=== PATIENT | female | born 1955 | race Two or more races ===

== ENCOUNTER → 2020-03-30 10:46 | Outpatient (BNVA) | payer OTHER, SELFPAY | PROVIDERS: PCP Internal Medicine; Referring Provider Internal Medicine; Visit Provider Nurse Practitioner | DX: K21.9 Gastro-esophageal reflux disease without esophagitis (principal); K58.9 Irritable bowel syndrome, unspecified; K64.9 Unspecified hemorrhoids; Z79.899 Other long term (current) drug therapy | CPT/HCPCS: 99213 ==

== ENCOUNTER → 2020-07-12 09:56 | Outpatient (BNVA) | payer OTHER, SELFPAY | PROVIDERS: PCP Internal Medicine; Visit Provider Nurse Practitioner ==

== ENCOUNTER → 2020-09-19 14:38 | Outpatient (BNVA) | payer MEDICARE, MEDICAID, SELFPAY | PROVIDERS: PCP Internal Medicine; Visit Provider Nurse Practitioner | DX: K58.0 Irritable bowel syndrome with diarrhea (principal); K21.9 Gastro-esophageal reflux disease without esophagitis; K64.9 Unspecified hemorrhoids | CPT/HCPCS: Q3014 ==

== ENCOUNTER 2020-11-13 09:43 | Outpatient (REF) | payer MEDICARE, MEDICAID, SELFPAY ==
[2020-11-13 11:46] LABS: Albumin Level 3.9 g/dL (3.5-5.0); Calcium 9.2 mg/dL (8.4-10.2)
[2020-11-13 11:53] LABS: Vitamin D 25-OH Total 48.3 ng/mL (>30)
[2020-11-15 09:21] LABS: Calcium (PTHI) 8.7 mg/dL (8.6-10.4); PTHI 51 pg/mL (14-64)
[2020-11-16 10:27] LABS: Alkaline Phosphatase Bone 17.7 mcg/L (5.6-29.0)
[2020-11-21 06:21] LABS: N-Telopeptide 43 (see note); NTXCreaRU 96 mg/dL (20-275)
== END 2020-11-13 09:44 | disposition home or self-care (01) ==
LOC: HO.LAB 09:43
PROVIDERS: PCP Internal Medicine; Visit Provider Internal Medicine Endocrinology, Diabetes & Metabolism
DX: M81.0 Age-related osteoporosis without current pathological fracture (principal); Z86.39 Personal history of other endocrine, nutritional and metabolic disease
CPT/HCPCS: 36415; 82040; 82306; 82310; 82523; 83970; 84075; 99212

== ENCOUNTER 2020-11-20 08:50 | Outpatient (REF) | payer MEDICARE, MEDICAID, SELFPAY ==
--- NOTE | ~2020-11-20 | CT_ITS ---
EXAMINATION: CT HEAD WITHOUT CONTRAST CLINICAL INFORMATION: Dizziness COMPARISON: Previous head CT scans, most recent February TECHNIQUE: Contiguous axial imaging was performed from the skull base to vertex without intravenous administration of contrast. This CT examination was performed using dose optimization techniques as appropriate, variously including the following: *Automated exposure control *Adjustment of mA and/or kV according to patient size (this includes techniques or standardized protocols for targeted exams where dose is matched to indication/reason for exam; i.e. extremities or head) *Use of iterative reconstruction technique DLP: 719 mGy-cm FINDINGS: There is no evidence of acute intracranial hemorrhage or territorial infarction. No abnormal mass effect or midline shift is seen. Weathers to white matter differentiation is well preserved. No extra-axial fluid collections are identified. The ventricles are normal in size. Cavum velum interpositum versus arachnoid cyst superior to the third ventricle is unchanged. There is no abnormal attenuation within the brain parenchyma. There is a benign hyperostosis interna that is unchanged. The osseous structures and soft tissues are otherwise normal. The mastoid air cells and visualized portions of the paranasal sinuses are well aerated. CT/CT head/brain wo con IMPRESSION: No acute findings and no change from previous exam.
--- NOTE | ~2020-11-20 | XR_ITS ---
EXAMINATION: XR THORACOLUMBAR SPINE CLINICAL INFORMATION: Pain COMPARISON: Previous x-ray of the thoracic spine May 2018 TECHNIQUE: 2 views of the thoracic spine FINDINGS: Bone alignment is normal. No fracture or dislocation is seen. There is mild multilevel degenerative spondylosis of the mid and lower thoracic spine. Disc spaces are normal. Paraspinal soft tissues are normal. XR/XR thoracic spine 2V IMPRESSION: Mild degenerative spondylosis.
== END 2020-11-20 08:51 | disposition home or self-care (01) ==
LOC: HO.CT 08:50
PROVIDERS: Visit Provider Psychiatry & Neurology Neurology
DX: R42 Dizziness and giddiness (principal); M54.6 Pain in thoracic spine
CPT/HCPCS: 70450; 72070

== ENCOUNTER 2020-12-19 11:22 | Outpatient (REF) | payer MEDICARE, MEDICAID, SELFPAY ==
--- NOTE | ~2020-12-19 | MM_ITS ---
EXAMINATION: MM SCREENING DIGITAL BREAST TOMOSYNTHESIS, BILATERAL CLINICAL INFORMATION: Screening. Asymptomatic. The lifetime risk of breast cancer based on the Tyrer-Cuzick Model is 6%. COMPARISON: Mammography: 03/03/2019, 02/19/2018, 01/14/2017 TECHNIQUE: Digital breast tomosynthesis is performed in both the craniocaudal and mediolateral oblique views along with computer-aided detection (CAD). Synthesized 2D images are generated from the tomosynthesis. FINDINGS: There are scattered areas of fibroglandular density (ACR BI-RADS breast composition Category b). There are no significant masses, abnormal calcifications, or other abnormalities. Parenchymal pattern is similar to prior studies. Skin contours are smooth. No significant changes. MM/MM tomosynthesis screening BI IMPRESSION: No mammographic evidence of malignancy. ASSESSMENT: BI-RADS 1: Negative RECOMMENDATION: Routine annual mammography screening. This patient's information was entered into a reminder system with a target due date for their next mammogram.
== END 2020-12-19 11:23 | disposition home or self-care (01) ==
LOC: HO.MAMMO 11:22
PROVIDERS: Visit Provider Internal Medicine
DX: Z12.31 Encounter for screening mammogram for malignant neoplasm of breast (principal)
CPT/HCPCS: 77063; 77067

== ENCOUNTER → 2020-12-20 10:34 | Outpatient (BNVA) | payer MEDICARE, MEDICAID, SELFPAY | PROVIDERS: Visit Provider Nurse Practitioner | DX: K58.0 Irritable bowel syndrome with diarrhea (principal); K21.9 Gastro-esophageal reflux disease without esophagitis; K64.9 Unspecified hemorrhoids; R14.0 Abdominal distension (gaseous); Z80.0 Family history of malignant neoplasm of digestive organs | CPT/HCPCS: Q3014 ==

== ENCOUNTER → 2021-05-15 08:45 | Outpatient (BNVA) | payer MEDICARE, MEDICAID, SELFPAY | PROVIDERS: PCP Internal Medicine; Visit Provider Internal Medicine | CPT/HCPCS: Q3014 ==

== ENCOUNTER 2021-05-30 09:53 | Outpatient (REF) | payer MEDICARE, MEDICAID, SELFPAY ==
[2021-05-30 11:12] LABS: Alanine Aminotransferase 16 U/L (0-31); Albumin Level 3.9 g/dL (3.5-5.0); Alkaline Phosphatase 125 U/L (39-117); Anion Gap 9 (12-20); Aspartate Amino Transferase 18 U/L (5-31); Bilirubin Total 0.3 mg/dL (0.0-1.0); Blood Urea Nitrogen 11 mg/dL (9-16); Carbon Dioxide 28 mmol/L (22-29); Chloride 109 mmol/L (96-108); Estimated Glomerular Filt Rate > 60; Glucose Random 88 mg/dL (60-115); Potassium 4.2 mmol/L (3.3-5.1); Sodium 142 mmol/L (135-145); Total Protein 6.8 g/dL (6.5-8.0)
[2021-05-30 11:25] LABS: Thyroid Stimulating Hormone 0.56 uIU/mL (0.32-4.0); Vitamin D 25-OH Total 44.3 ng/mL (>30)
[2021-05-31 16:31] LABS: Calcium (PTHI) 8.9 mg/dL (8.6-10.4); PTHI 43 pg/mL (14-64)
[2021-06-02 19:52] LABS: Prot Elec - Albumin 3.5 g/dL (3.8-4.8); Prot Elec - Alpha1 0.3 g/dL (0.2-0.3); Prot Elec - Alpha2 0.7 g/dL (0.5-0.9); Prot Elec - Beta 1 0.5 g/dL (0.4-0.6); Prot Elec - Beta 2 0.5 g/dL (0.2-0.5); Prot Elec - Gamma 1.2 g/dL (0.8-1.7); Prot Elec - Total Protein 6.6 g/dL (6.1-8.1)
[2021-06-05 22:06] LABS: Alkaline Phosphatase Bone 18.1 mcg/L (5.6-29.0)
== END 2021-05-30 09:54 | disposition home or self-care (01) ==
LOC: HO.LAB 09:53
PROVIDERS: PCP Internal Medicine; Visit Provider Internal Medicine
DX: M81.0 Age-related osteoporosis without current pathological fracture (principal); E55.9 Vitamin D deficiency, unspecified
CPT/HCPCS: 36415; 80053; 82306; 83970; 84075; 84100; 84165; 84439; 84443

== ENCOUNTER 2021-06-27 11:16 | Outpatient (REF) | payer MEDICARE, MEDICAID, SELFPAY ==
[2021-07-03 06:32] LABS: N-Telopeptide 39 (see note); NTXCreaRU 91 mg/dL (20-275)
== END 2021-06-27 11:17 | disposition home or self-care (01) ==
LOC: HO.LNP 11:16
PROVIDERS: Visit Provider Internal Medicine
DX: M81.0 Age-related osteoporosis without current pathological fracture (principal)
CPT/HCPCS: 82523

== ENCOUNTER 2021-08-01 08:54 | Outpatient (REF) | payer MEDICARE, MEDICAID, SELFPAY ==
--- NOTE | ~2021-08-01 | MM_ITS ---
EXAMINATION: BONE DENSITOMETRY CLINICAL INDICATION: Hyperparathyroidism. COMPARISON: Previous BD dated 03/03/2019 and baseline BD dated 03/31/2007. TECHNIQUE: Using a Scoopinion DXA System (software version: 13.1) manufactured by [employer], dual-energy x-ray absorptiometry was performed of the lumbar spine, left hip, and left forearm radius 33%. The images are of good technical quality. Summary results are attached. FINDINGS: AP SPINE L1-L4: Current: BMD 1.062 g/cm2, Z-score 0.5, T-score -1.0, normal, 6.2% decrease from previous, 10.2% decrease from baseline (<5% change is not significant). Prior: BMD 1.132 g/cm2. Baseline: BMD 1.183 g/cm2. LEFT FEMUR, NECK: Current: BMD 0.815 g/cm2, Z-score -0.2, T-score -1.6, osteopenia. Prior: BMD 0.817 g/cm2. Baseline: BMD 0.895 g/cm2. LEFT FEMUR, TOTAL: Current: BMD 0.881 g/cm2, Z-score 0.2, T-score -1.0, normal, 3.9% decrease from previous, 10.3% decrease from baseline (<5% change is not significant). Prior: BMD 0.917 g/cm2. Baseline: BMD 0.982 g/cm2. LEFT FOREARM RADIUS 33%: BMD 0.669 g/cm2, Z-score -0.9, T-score -2.4, osteopenia, 0.5% increase from previous, 7.9% decrease from baseline (<5% change is not significant). Prior: BMD 0.666 g/cm2. Baseline 11/23/2014: BMD 0.726 g/cm2. IDENTIFIED RISK FACTORS: Menopause, hyperparathyroidism, osteoporosis, rheumatoid arthritis. HISTORY OF FRACTURE: None listed. MEDICATIONS: Calcium, vitamin D. MM/XR DEXA appendicular skeleton IMPRESSION: 1. DIAGNOSIS: Osteopenia based on the lowest T-score value of -2.4 in the forearm radius 33% applying World Health Organization criteria. 2. 10-YEAR FRACTURE RISK PREDICTION, FRAX: Major osteoporotic fracture (clinical spine, forearm, hip or shoulder) 6.7%. Hip fracture 0.9%. 3. Treatment Recommendations: NOF guidelines recommend consideration for treatment in postmenopausal women and men age 50 and older presenting with the following: -A hip or vertebral (clinical or morphometric) fracture. -T-score less than or equal to -2.5 at the femoral neck or spine after appropriate evaluation to exclude secondary causes. -Low bone mass at the hip or spine and a 10-year fracture probability by FRAX of greater than or equal to 3% for hip fracture or greater than or equal to 20% for major osteoporotic fracture based on the [place] adapted WHO algorithm. 4. Other Recommendations: All treatment decisions require clinical judgment and consideration of individual patient factors, including patient preferences, comorbidities, previous drug use, risk factors not captured in the FRAX model (e.g. frailty, falls, vitamin D deficiency, increased bone turnover, interval significant decline in bone density) and possible under or overestimation of fracture risk by FRAX. Additional medical evaluation for secondary cause of low bone mineral density may be appropriate. FUTURE SCAN RECOMMENDATION: People with diagnosed cases of osteoporosis or at high risk for fracture should have regular bone mineral density tests. For patients eligible for Medicare, routine testing is allowed once every 2 years. The testing frequency can be increased to one year for patients who have rapidly progressing disease, those who are receiving or discontinuing medical therapy to restore bone mass, or have additional risk factors.
== END 2021-08-01 08:55 | disposition home or self-care (01) ==
LOC: HO.MAMMO 08:54
PROVIDERS: PCP Internal Medicine; Visit Provider Internal Medicine
DX: Z13.820 Encounter for screening for osteoporosis (principal); E21.3 Hyperparathyroidism, unspecified; Z78.0 Asymptomatic menopausal state; M85.80 Other specified disorders of bone density and structure, unspecified site; Z79.899 Other long term (current) drug therapy
CPT/HCPCS: 77081

== ENCOUNTER 2021-08-08 11:26 | Outpatient (REF) | payer MEDICARE, MEDICAID, SELFPAY ==
--- NOTE | ~2021-08-08 | XR_ITS ---
EXAMINATION: XR SHOULDER, RIGHT CLINICAL INFORMATION: Right shoulder pain. COMPARISON: None TECHNIQUE: AP external rotation, Grashey, scapular Y, and axillary views of the right shoulder. FINDINGS: Minimal calcification is seen at the rotator cuff insertion. The joint spaces are unremarkable. There is no acute fracture. The soft tissues are unremarkable. XR/XR shoulder RT min 2V IMPRESSION: Minimal degenerative calcification at the rotator cuff insertion without other significant abnormality.
== END 2021-08-08 11:27 | disposition home or self-care (01) ==
LOC: HO.XRAY 11:26
PROVIDERS: PCP Internal Medicine; Visit Provider Internal Medicine
DX: M25.511 Pain in right shoulder (principal)
CPT/HCPCS: 73030

== ENCOUNTER → 2021-08-21 08:40 | Outpatient (BNVA) | payer MEDICARE, MEDICAID, SELFPAY | PROVIDERS: PCP Internal Medicine; Visit Provider Internal Medicine | DX: M81.0 Age-related osteoporosis without current pathological fracture (principal); E55.9 Vitamin D deficiency, unspecified; Z86.39 Personal history of other endocrine, nutritional and metabolic disease | CPT/HCPCS: Q3014 ==

== ENCOUNTER → 2021-08-27 10:54 | Outpatient (BNVA) | payer MEDICARE, MEDICAID, SELFPAY | PROVIDERS: PCP Internal Medicine; Referring Provider Internal Medicine; Visit Provider Nurse Practitioner | DX: K58.0 Irritable bowel syndrome with diarrhea (principal); K21.9 Gastro-esophageal reflux disease without esophagitis; R14.0 Abdominal distension (gaseous); Z79.899 Other long term (current) drug therapy | CPT/HCPCS: 99212 ==

== ENCOUNTER 2021-10-03 09:00 | Outpatient (RCR) | payer MEDICARE, MEDICAID, SELFPAY ==
--- NOTE | 2021-09-09 10:45 | MHC.PT.EP ---
[facility] [place] Office [place] [facility] [place] [facility] [address] Ramon Rosales [address] [phone] F: [phone] F: [phone] F: [phone] F: [phone] Physical Therapy Plan of Care Date of Evaluation: Date of Surgery: Diagnosis: right shoulder pain Assessment: The patient arrived reporting shoulder pain and functional loss of motion for daily ADL's. The patient has reduced ROM, strength, and poor tolerance to functional reaching. She has poor sitting posture, and describes difficulty sleeping. She will benefit from ROM, strength, ADL's, posture education for sitting and sleeping. I have given her preliminary education for posture, spine mechanics, sleeping mechanics. I issued a HEP to promote improved shoulder mobility. Frequency and Duration: The patient will be seen 2x/week x 4 weeks. Short Term Goals: 1.Pt to able to demonstrate proper sitting posture with the use of a lumbar roll to decrease aggravating factors. 2.Pt to be able to demonstrate proper posture for common leisure activities such as crocheting and phone/tablet use. 3.For the patient to demonstrate proper upright sitting posture with use of the lumbar roll to improve compliance and carryover. Nursing Home Goals: 1. Pt to be able to return to normal PLOF without limiting pain. 2. Pt to be able to return to overhead reaching without pain or limitation. 3. Pt to be able to manage her pain with selected exercise and stretching regime. Treatment Plan: Modalities to reduce pain, spasms and effusion. Manual therapy to restore motion and function. Therapeutic exercise to improve strength and flexibility. Neuromuscular re-education for posture and balance. Therapeutic activities to return to functional activities of daily living. Electronically signed by: Shanna Dacosta PT DPT Please sign and return to therapist. Thank you for your referral.
== END 2021-10-29 07:57 | disposition home or self-care (01) ==
LOC: HO.PT 09:00
PROVIDERS: PCP Internal Medicine; Visit Provider Internal Medicine
DX: M25.511 Pain in right shoulder (principal)
CPT/HCPCS: 97110; 97112; 97162; 97530

== ENCOUNTER → 2022-03-20 09:33 | Outpatient (BNVA) | payer MEDICARE, MEDICAID, SELFPAY | PROVIDERS: PCP Internal Medicine; Visit Provider Nurse Practitioner | DX: K21.9 Gastro-esophageal reflux disease without esophagitis (principal); K58.9 Irritable bowel syndrome, unspecified; K58.0 Irritable bowel syndrome with diarrhea; R14.0 Abdominal distension (gaseous); R10.9 Unspecified abdominal pain | CPT/HCPCS: 99212 ==

== ENCOUNTER 2022-04-11 13:45 | Outpatient (REF) | payer MEDICARE, MEDICAID, SELFPAY ==
--- NOTE | ~2022-04-11 | US_ITS ---
EXAMINATION: US ABDOMEN COMPLETE CLINICAL INFORMATION: Unspecified abdominal pain. COMPARISON: CT of the pelvis 03/04/2014. TECHNIQUE: Real-time imaging of the abdominal viscera. FINDINGS: PANCREAS: Normal. ABDOMINAL AORTA: The proximal, mid, and distal segments are normal in caliber. INFERIOR VENA CAVA: Visualized portions are normal. LIVER: The liver is normal in size. The liver contour is normal. Parenchymal echogenicity is normal. Circumscribed 2.1 cm echogenic lesion in the right hepatic lobe, avascular in appearance. There is no intrahepatic biliary duct dilatation seen. GALLBLADDER: Surgically absent. COMMON BILE DUCT: Normal in caliber measuring 0.2 cm in diameter. RIGHT KIDNEY: No hydronephrosis. No renal calculi or focal parenchymal lesions. The kidney measures 9.7 cm in maximum dimension. LEFT KIDNEY: Normal. No hydronephrosis. No renal calculi or focal parenchymal lesions. The kidney measures 10.3 cm in maximum dimension. SPLEEN: Normal. The spleen measures 9.5 cm in maximum dimension. FREE FLUID: None. US/US abdomen complete IMPRESSION: A circumscribed, echogenic, avascular liver lesion measuring 2.1 cm. In the absence of known malignancy or risk factors for hepatic malignancy this likely reflect a hemangioma. If known malignancy or risk factors for hepatic malignancy and MR abdomen could be obtained for definitive characterization.
== END 2022-04-11 13:46 | disposition home or self-care (01) ==
LOC: HO.US 13:45
PROVIDERS: Visit Provider Nurse Practitioner
DX: R10.9 Unspecified abdominal pain (principal)
CPT/HCPCS: 76700

== ENCOUNTER → 2022-04-16 13:01 | Outpatient (BNVA) | payer MEDICARE, MEDICAID, SELFPAY | PROVIDERS: PCP Internal Medicine; Visit Provider Nurse Practitioner | DX: K58.0 Irritable bowel syndrome with diarrhea (principal); R14.0 Abdominal distension (gaseous); K21.9 Gastro-esophageal reflux disease without esophagitis; M79.89 Other specified soft tissue disorders | CPT/HCPCS: 99212 ==

== ENCOUNTER → 2022-04-18 10:47 | Outpatient (BNVA) | payer MEDICARE, MEDICAID, SELFPAY | PROVIDERS: PCP Internal Medicine; Visit Provider Physician Assistant | DX: M75.81 Other shoulder lesions, right shoulder (principal) | CPT/HCPCS: 99202 ==

== ENCOUNTER 2022-04-29 10:15 | Outpatient (REF) | payer MEDICARE, MEDICAID, SELFPAY ==
[2022-04-29 11:05] LABS: Appearance Urine Clear; Color Urine Yellow; Glucose Urine UA Negative (Negative); Leukocyte Esterase Urine Small (1+) (Negative); Nitrite Urine Negative (Negative); PH 5.5 (5.0-9.0); UMIC TRIGGER UACC YES; Urine Blood Negative (Negative); Urine Ketones Negative (Negative); Urine Protein Negative (Neg-Trace)
[2022-04-29 11:29] LABS: Bacteria Urine None Seen (None Seen); Hyaline Casts Urine 0-2 /LPF (0-2); RBC Urine 0-2 /HPF (0-2); Squamous Epithelial Cell Urine 0-2 /HPF (0-2); UACC Culture Trigger YES; WBC Urine 0-5 /HPF (0-5)
[2022-04-29 11:46] LABS: Erythrocyte Sedimentation Rate 14 MM/HR (0-20)
[2022-04-29 11:48] LABS: Amylase 68 U/L (28-100); Lipase 61 U/L (8-78); Rheumatoid Factor < 15.0 IU/mL (<15.0); Uric Acid 3.4 mg/dL (2.4-5.7)
[2022-04-30 13:07] LABS: Anti Nuclear Antibody Screen NEGATIVE (NEGATIVE)
== END 2022-04-29 10:16 | disposition home or self-care (01) ==
LOC: HO.LAB 10:15
PROVIDERS: PCP Internal Medicine; Visit Provider Nurse Practitioner
DX: R10.9 Unspecified abdominal pain (principal); M79.89 Other specified soft tissue disorders
CPT/HCPCS: 36415; 81001; 81003; 82150; 83690; 84550; 85652; 86038; 86039; 86431; 87086

== ENCOUNTER → 2022-05-07 09:00 | Outpatient (BNVA) | payer MEDICARE, MEDICAID, SELFPAY | PROVIDERS: PCP Internal Medicine; Visit Provider Nurse Practitioner | DX: K76.9 Liver disease, unspecified (principal); K21.9 Gastro-esophageal reflux disease without esophagitis; K58.0 Irritable bowel syndrome with diarrhea; R14.0 Abdominal distension (gaseous); M79.89 Other specified soft tissue disorders | CPT/HCPCS: 99212 ==

== ENCOUNTER 2022-05-20 09:04 | Outpatient (REF) | payer MEDICARE, MEDICAID, SELFPAY ==
[2022-05-20 10:24] LABS: Blood Urea Nitrogen 12 mg/dL (9-16); Estimated Glomerular Filt Rate > 60
[2022-05-20 11:40] LABS: Appearance Urine Clear; Color Urine Yellow; Glucose Urine UA Negative (Negative); Leukocyte Esterase Urine Moderate (2+) (Negative); Nitrite Urine Negative (Negative); UMIC TRIGGER UACC YES; Urine Blood Negative (Negative); Urine Ketones Negative (Negative); Urine Protein Negative (Neg-Trace)
[2022-05-20 11:44] LABS: Bacteria Urine None Seen (None Seen); Hyaline Casts Urine 0-2 /LPF (0-2); RBC Urine 0-2 /HPF (0-2); UACC Culture Trigger YES; WBC Urine 21-50 /HPF (0-5)
== END 2022-05-20 09:05 | disposition home or self-care (01) ==
LOC: HO.LAB 09:04
PROVIDERS: PCP Internal Medicine; Visit Provider Nurse Practitioner
DX: R10.9 Unspecified abdominal pain (principal); K76.9 Liver disease, unspecified
CPT/HCPCS: 36415; 81001; 81003; 82565; 84520; 87086

== ENCOUNTER 2022-05-29 08:13 | Outpatient (REF) | payer MEDICARE, MEDICAID, SELFPAY ==
--- NOTE | ~2022-05-29 | CT_ITS ---
EXAMINATION: CT ABDOMEN AND PELVIS WITHOUT AND WITH CONTRAST CLINICAL INFORMATION: Unspecified cirrhosis of the liver. COMPARISON: CT abdomen and pelvis 03/13/2014. TECHNIQUE: Multidetector volumetric imaging was performed of the abdomen and pelvis before and after the IV administration of 85 mL of Omnipaque 350 intravenous contrast. Sagittal and coronal reformatted images were obtained on the technologist's workstation. This CT examination was performed using dose optimization techniques as appropriate, variously including the following: *Automated exposure control *Adjustment of mA and/or kV according to patient size (this includes techniques or standardized protocols for targeted exams where dose is matched to indication/reason for exam; i.e. extremities or head) *Use of iterative reconstruction technique DLP: 651 mGy-cm FINDINGS: LUNG BASES: The heart size is normal. The lung bases are clear. LIVER, GALLBLADDER, AND BILIARY TREE: The liver is normal in size, shape, and attenuation. No focal hepatic lesion or biliary ductal dilatation is present. On postcontrast exam, there is a 1.9 x 1.5 cm lesion with central nodular enhancement in the right hepatic lobe segment 7 (axial image 21/5). It is unchanged since the 2013 exam and likely represents a small hemangioma. There are surgical chandler in the right upper quadrant from previous cholecystectomy. PANCREAS: Unremarkable. SPLEEN: Unremarkable. ADRENAL GLANDS: Unremarkable. KIDNEYS AND URETERS: The kidneys are normal in size, shape, and attenuation. No hydronephrosis, hydroureter, or calculi are seen. No perinephric stranding. BLADDER: Unremarkable. GASTROINTESTINAL TRACT: There is scattered stool and gas seen throughout the colon without significant distention. The small bowel loops are normal caliber. The appendix has been surgically removed. ABDOMINAL WALL: No significant hernia is appreciated. LYMPH NODES: Normal. VASCULAR: The abdominal aorta is of normal caliber. The abdominal aortic branches are widely patent. PELVIC VISCERA: Unremarkable. OSSEOUS STRUCTURES: No aggressive lytic or sclerotic process is seen. CT/CT abdomen pelvis wo/w IV con IMPRESSION: 1. No acute intra-abdominal process seen. 2. Stable right hepatic lobe hemangioma. 3. Mild constipation. Fleischner guidelines were followed.
[2022-05-29] MEDS: iohexoL 350 MG/ML 100 ML INFUS..BTL 85 ML IV (09:21)
== END 2022-05-29 08:14 | disposition home or self-care (01) ==
LOC: HO.CT 08:13
PROVIDERS: PCP Internal Medicine; Visit Provider Nurse Practitioner
DX: K76.9 Liver disease, unspecified (principal); K74.60 Unspecified cirrhosis of liver
CPT/HCPCS: 74178; Q9967

== ENCOUNTER 2022-07-07 12:42 | Outpatient (REF) | payer MEDICARE, MEDICAID, SELFPAY ==
--- NOTE | ~2022-07-07 | MM_ITS ---
EXAMINATION: MM SCREENING DIGITAL BREAST TOMOSYNTHESIS, BILATERAL CLINICAL INFORMATION: Screening. Asymptomatic. The lifetime risk of breast cancer based on the Tyrer-Cuzick Model is 5.6%. COMPARISON: Mammography: December 19, 2020 and studies dating back to November 15, 2015 TECHNIQUE: Digital breast tomosynthesis is performed in both the craniocaudal and mediolateral oblique views along with computer-aided detection (CAD). Synthesized 2D images are generated from the tomosynthesis. FINDINGS: There are scattered areas of fibroglandular density (ACR BI-RADS breast composition Category b). There are no significant masses, abnormal calcifications, or other abnormalities. MM/MM tomosynthesis screening BI IMPRESSION: No significant changes from prior exam. ASSESSMENT: BI-RADS 1: Negative RECOMMENDATION: Routine annual mammography screening. This patient's information was entered into a reminder system with a target due date for their next mammogram.
== END 2022-07-07 12:43 | disposition home or self-care (01) ==
LOC: HO.MAMMO 12:42
PROVIDERS: PCP Internal Medicine; Visit Provider Internal Medicine
DX: Z12.31 Encounter for screening mammogram for malignant neoplasm of breast (principal)
CPT/HCPCS: 77063; 77067

== ENCOUNTER → 2022-07-24 09:31 | Outpatient (BNVA) | payer MEDICARE, MEDICAID, SELFPAY | PROVIDERS: PCP Internal Medicine; Referring Provider Internal Medicine; Visit Provider Nurse Practitioner | DX: R14.0 Abdominal distension (gaseous) (principal); K21.9 Gastro-esophageal reflux disease without esophagitis; K58.0 Irritable bowel syndrome with diarrhea; R10.12 Left upper quadrant pain; K76.9 Liver disease, unspecified; Z90.49 Acquired absence of other specified parts of digestive tract | CPT/HCPCS: 99212 ==

== ENCOUNTER 2022-09-08 09:43 | Outpatient (REF) | payer MEDICARE, MEDICAID, SELFPAY ==
[2022-09-08 11:51] LABS: Alanine Aminotransferase 14 U/L (0-31); Albumin Level 3.7 g/dL (3.5-5.0); Alkaline Phosphatase 133 U/L (39-117); Anion Gap 13 (12-20); Aspartate Amino Transferase 20 U/L (5-31); Bilirubin Total 0.5 mg/dL (0.0-1.0); Blood Urea Nitrogen 9 mg/dL (9-16); Calcium 8.7 mg/dL (8.4-10.2); Carbon Dioxide 27 mmol/L (22-29); Chloride 108 mmol/L (96-108); Cholesterol 158 mg/dL; Estimated Glomerular Filt Rate > 60; Glucose Fasting 79 mg/dL (60-99); HDL Cholesterol 42 mg/dL; LDL Cholesterol Calculated 85 mg/dl; Potassium 4.3 mmol/L (3.3-5.1); Sodium 144 mmol/L (135-145); Total Protein 6.6 g/dL (6.5-8.0); Triglycerides 159 mg/dL
== END 2022-09-08 09:44 | disposition home or self-care (01) ==
LOC: HO.LAB 09:43
PROVIDERS: PCP Internal Medicine; Visit Provider Internal Medicine
DX: Z00.00 Encounter for general adult medical examination without abnormal findings (principal); E78.5 Hyperlipidemia, unspecified
CPT/HCPCS: 36415; 80053; 80061

== ENCOUNTER 2022-10-24 10:05 | Emergency (ER) | payer MEDICARE, MEDICAID, SELFPAY ==
--- NOTE | 2022-10-24 10:14 | ED.FEMALEGU ---
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 She also endorses some lower back pain and external vaginal itching. No vaginal discharge. No fever, chills, N/V/D or abdominal pain. MD elicited complaint: dysuria Onset (ago): day(s) (3) Location of symptoms: external genitalia and urethra Severity: moderate Female Urogenital Radiation: Non-Radiating Quality of pain: burning Consistency: improved Vaginal discharge: none Vaginal bleeding: none Urinary symptoms: Dysuria, Urgency, Frequency and Hematuria Exacerbating factors: urination Relieving factors: none Associated symptoms: denies other symptoms Treatment prior to arrival: none Sexual activity: No Patient : No Related Data Previous Rx's Medication Instructions Recorded gabapentin 400 mg capsule 400 mg PO TID 30 days #90 caps 06/12/20 hydrocortisone 2.5 % topical cream 1 ea [place] BID hemorrhoids #30 grams 08/27/21 with perineal applicator (Proctosol HC) sennosides 8.6 mg capsule (senna) 17.2 mg PO BEDTIME PRN 05/07/22 constipation 30 days #60 caps dexlansoprazole 60 mg 60 mg PO DAILY #90 caps 07/24/22 capsule,biphase delayed release (Dexilant) dicyclomine 20 mg tablet 20 mg PO QID #120 tabs 07/24/22 [id number]-[id number] 1 cap PO QID #120 caps 07/24/22 24,000-76,000-120,000 unit capsule,delayed rel (Creon) simethicone 180 mg capsule 180 mg PO QID #120 caps 07/24/22 cefuroxime axetil 250 mg tablet 250 mg PO BID 7 days #14 tabs 10/24/22 Allergies Allergy/AdvReac Type Severity Reaction Status Date / Time alendronate sodium [Fosamax] Allergy Intermediate low back Verified 08/12/22 12:32 pain ciprofloxacin [From CIPRO] Allergy Intermediate SHORTNESS Verified 08/12/22 12:32 OF BREATH cyclobenzaprine Allergy Intermediate DIZZY Verified 08/12/22 12:32 FOGGY , dizziness metronidazole [From FLAGYL] Allergy Intermediate DISTENDED Verified 08/12/22 12:32 ABDOMEN, DIFFICULTY BREATHING tramadol [TRAMADOL] Allergy Intermediate VOMITING Verified 08/12/22 12:32 Hydrocodone-Acetaminophen Allergy Intermediate dizziness, Uncoded 08/12/22 12:32 insomnia Review of Systems Review of Systems: Yes all other systems are reviewed and are negative [facility] Past Medical History Medical History History of primary hyperparathyroidism Hyperparathyroidism Medicare annual wellness visit, initial Migraines Osteoporosis Polyarthralgia Right shoulder pain Thoracic spine pain Vertigo Vitamin D deficiency Surgical History Hx of cholecystectomy Hx of colonoscopy (~2009) Hx of endoscopy (~2009) Hx of parathyroidectomy Family History Family History Father Colon cancer HTN (hypertension) Mother No problems noted. 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 Oriented X3. No acute distress. Head: normocephalic, atraumatic. Eyes: Pupils equal, round and reactive to light. ENT: Pharynx normal. No tonsillar swelling or exudate. Neck: Normal inspection. Neck supple. CVS: Normal heart rate and rhythm. Pulses normal. Respiratory: No respiratory distress. Breath sounds normal. Abdomen: Soft and nontender. +BS x4. pelvic deferred Skin: Skin warm and dry. Normal skin color. Normal skin turgor. No rashes. Extremities: No lower extremity edema. No joint swelling. Neuro/psych: Oriented X 3. No motor deficit. No sensory deficit. CN II-XII intact. Normal speech and cognition. Medical Decision Making Medical Decision Making [facility] Narrative: 67 yo female presents to the ER for dysuria, frequency and urgency associated with lower back pain and hematuria for the last 3 days. No CVA tenderness on exam. Doubt kidney stones. No fever, chills, N/V/D and no abdominal tenderness on exam. Her UA is grossly positive for infection. 1st dose of ceftin given here, will d/c home on ceftin. diagnosis and treatment d/w patient along return precautions. stable for d/c home. Differential Diagnosis Differential Diagnoses: The differential diagnosis associated with the presentation includes UTI, vaginitis, pyelonephritis, kidney stone Lab Data [facility] Lab Attestation statement: I reviewed the patient's lab results. Labs: Lab Results 10/24/22 Range/Units 10:28 Urine Color BROWN Urine Appearance Turbid Urine pH 6.5 (5.0-9.0) Ur Specific [place] 1.025 (1.005-1.025) Urine Protein 100 (2+) H (Neg-Trace) mg/dL Urine Glucose (UA) Negative (Negative) mg/dL Urine Ketones Trace (Negative) mg/dL Urine Blood Large (3+) H (Negative) Urine Nitrite Positive H (Negative) Ur Leukocyte Esterase Large (3+) H (Negative) Urine RBC >20 H (0-2) /HPF Urine WBC >50 H (0-5) /HPF Ur Squamous Epith Cells 0-2 (0-2) /HPF Urine Bacteria None Seen (None Seen) Hyaline Casts 0-2 (0-2) /LPF External Record Review External record reviewed: Prior outpatient labs Prescription Management I considered prescription management with: Antibiotic Critical Care Time Critical Care Time Critical Care Time: No Discharge Plan Discharge Clinical Impression: Urinary tract infection Patient Disposition: Home, Self-Care Instructions: Urinary Tract Infection in Women (DC) Additional Instructions: Your urine test showed you have a urinary tract infection which is causing all of your symptoms Take the prescribed antibiotic as directed - next dose is due tonight before bed. you were given 1st dose in the ER today Make sure you are drinking plenty of fluids. Follow up with your doctor If you develop new or worsening symptoms call 911 or come back to the ER for further evaluation. Fishman an?lisis de orina mostr? que tiene gui infecci?n del tracto urinario que est? causando todos blayne s?ntomas. [place] el antibi?doc recetado seg?n las indicaciones; la pr?xima dosis debe tomarse esta noche antes de acostarse. le dieron la primera dosis en la tim de emergencias hoy Aseg?rese de beber muchos l?quidos. Seguimiento con fishman m?dico Si desarrolla s?ntomas nuevos o que empeoran, llame al 911 o regrese a la tim de emergencias para gui evaluaci?n adicional. Prescriptions: New cefuroxime axetil 250 mg tablet 250 mg PO BID 7 Days Qty: 14 0RF No Action gabapentin 400 mg capsule 400 mg PO TID 30 Days Qty: 90 3RF hydrocortisone [Proctosol HC] 2.5 % cream with perineal applicator 1 ea WA BID Qty: 30 6RF senna 8.6 mg capsule 17.2 mg PO BEDTIME PRN (Reason: constipation) 30 Days Qty: 60 6RF dexlansoprazole [Dexilant] 60 mg capsule,biphase delayed releas 60 mg PO DAILY Qty: 90 1RF dicyclomine 20 mg tablet 20 mg PO QID Qty: 120 6RF simethicone 180 mg capsule 180 mg PO QID Qty: 120 6RF Creon 24,000-76,000 -120,000 unit capsule,delayed release(DR/EC) 1 cap PO QID Qty: 120 6RF Referrals: Cee White MD [Primary Care Provider] - (uti) Print Language: Greenlandic
[2022-10-24 10:16] VITALS: BP 133/69; PULSE 83; RESP 16; TEMP 36.8; O2SAT 99; BMI 23.9
--- NOTE | 2022-10-24 10:30 | PC.NURSE ---
Pt on stretcher, airway open and patent, no obvious signs of distress, no difficulty/labored breathing, equal chest rise and fall. Pt a&ox4, skin color normal for ethnicity, warm, and dry. Pt complaining of frequent urination with some blood when she urinates as well as some burning. No edema noted.
[2022-10-24 10:39] LABS: Appearance Urine Turbid; Color Urine BROWN; Glucose Urine UA Negative (Negative); Leukocyte Esterase Urine Large (3+) (Negative); Nitrite Urine Positive (Negative); PH 6.5 (5.0-9.0); Specific Gravity - Urine 1.025 (1.005-1.025); UMIC TRIGGER UACC YES; Urine Blood Large (3+) (Negative); Urine Ketones Trace mg/dL (Negative); Urine Protein 100 (2+) mg/dL (Neg-Trace)
[2022-10-24 10:43] LABS: Bacteria Urine None Seen (None Seen); Hyaline Casts Urine 0-2 /LPF (0-2); RBC Urine >20 /HPF (0-2); Squamous Epithelial Cell Urine 0-2 /HPF (0-2); UACC Culture Trigger YES; WBC Urine >50 /HPF (0-5)
== END 2022-10-24 11:09 | disposition home or self-care (01) ==
PROVIDERS: Physician Assistant; Emergency Provider Emergency Medicine; PCP Internal Medicine
DX: N39.0 Urinary tract infection, site not specified (principal); Z79.899 Other long term (current) drug therapy
CPT/HCPCS: 81001; 87086; 99283; 99284

== ENCOUNTER 2023-01-22 10:31 | Outpatient (AMB) | payer MEDICARE, MEDICAID, SELFPAY ==
[2023-01-22 10:41] VITALS: BP 140/66; PULSE 68; BMI 22.9
--- NOTE | 2023-01-22 10:41 | A.OFFVIS_ITS ---
Intake Vital Signs 01/22/23 10:41 Height 5 ft 3 in Weight 129 lb 3.054 oz BMI 22.9 BP 140/66 H Blood Pressure Location Rt brachial Position Sitting Pulse 68 Intake Visit Reasons: 6 month follow up Intake Note: Gaviota presents in the office as a 2 month follow up for abdominal bloating. CC: Patient reports she was not doing well in the month of November as she was having lower back pain with radiation to her lower abdomen and a burning sensation. She reports occasional nausea and abdominal pain, and GERD. Denies other GI symptoms. 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 Accompanied by: Self / Same As Patient Allergies alendronate sodium [Fosamax] Allergy (Intermediate, Verified 02/09/23 10:08) low back pain ciprofloxacin [From CIPRO] Allergy (Intermediate, Verified 02/09/23 10:08) SHORTNESS OF BREATH cyclobenzaprine Allergy (Intermediate, Verified 02/09/23 10:08) DIZZY FOGGY , dizziness metronidazole [From FLAGYL] Allergy (Intermediate, Verified 02/09/23 10:08) DISTENDED ABDOMEN, DIFFICULTY BREATHING tramadol [TRAMADOL] Allergy (Intermediate, Verified 02/09/23 10:08) VOMITING Hydrocodone-Acetaminophen Allergy (Intermediate, Uncoded 02/09/23 10:08) dizziness, insomnia HPI 6 month follow up HPI Details Assessment & Plan (1) Liver lesion: ?Comment: On ultrasound, CT shows this to be a benign hemangioma aeb ?Code(s): K76.9 - Liver disease, unspecified ?Plan: [place] #Chiara Live We review the CT results and I am pleased that the lesion is stable and is most likely a benign hemangioma. She still swings between CIC and diarrhea, has not been getting her bentyl and we discuss calling the pharmacy and putting it on auto refill since she has refills. She continues on her Dexilant, but c/o pain in the am when she drinks her coffee, but then I take the pill and it calms down, I suggest she take the Dexilant before her coffee. ROV 6 weeks. (2) GERD (gastroesophageal reflux disease): ?Code(s): K21.9 - Gastro-esophageal reflux disease without esophagitis ?Qualifiers: ?Esophagitis presence:?esophagitis presence not specified? Qualified Code(s):?K21.9 - Gastro-esophageal reflux disease without esophagitis (3) Irritable bowel syndrome with diarrhea: ?Code(s): K58.0 - Irritable bowel syndrome with diarrhea (4) Abdominal bloating: ?Code(s): R14.0 - Abdominal distension (gaseous) ? ? ? Medications: Refilled dexlansoprazole (D exilant) 60 mg PO DAILY 90 caps 1RF K21.9 - Gastro-eso phageal reflux dis ease without esoph agitis ? dicyclomine 20 mg PO QID 120 t abs 6RF K58.0 - Irritable bowel syndrome wit h diarrhea ? simethicone 180 mg PO QID 120 caps 6RF R14.0 - Abdominal distension (gaseou s) ? yzvrdl-uvqwjztg-jx ylase 24,000-76,00 0 -120,000 unit (C reon) 1 cap PO QID 120 c aps 6RF K58.9 - Irritable bowel syndrome wit hout diarrhea ? TODAY'S VISIT [place] #Chiara Live She says that she is taking the bentyl tid but she is still having sx of bloating and pain in the lower abdomen and back. She has very little diarrhea now. She says this started a month ago, and before this I was getting better, I don't know what happened. She is having difficulty with the qid creon dosing, so we will change to 2 qam and 2qpm and stop the bentyl and start imipramine at low dose qhs. She was having success with taking the Dexilant before her coffee, but in general her GERD has been worse with her bowel irritability. ROV 2 weeks to titrate. [facility] Medical History History of primary hyperparathyroidism Hyperparathyroidism Medicare annual wellness visit, initial Migraines Osteoporosis Polyarthralgia Right shoulder pain Thoracic spine pain Vertigo Vitamin D deficiency Surgical History Hx of cholecystectomy Hx of colonoscopy (~2009) Hx of endoscopy (~2009) Hx of parathyroidectomy Family History Father Colon cancer HTN (hypertension) Mother No problems noted. 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 Cognitive needs: No Hearing needs: No Vision needs: Yes Review of Systems Const Denies fatigue, Denies fever(s), Denies night sweats, Denies poor appetite and Denies weight loss Eyes Details: glasses Reports requires corrective lenses ENT Reports Normal hearing present, Denies dental pain, Denies dysphagia, Denies hearing loss, Denies mouth pain, Denies odynophagia, Denies throat swelling, Denies tongue swelling and Reports other (Dentition adequate) Card Reports no additional complaints Resp Reports no additional complaints GI Denies abdominal pain, Denies melena, Reports bloating, Denies hematochezia, Denies constipation, Reports GI cramping, Denies dysphagia, Denies excessive flatus, Denies early satiety, Reports heartburn, Denies diarrhea, Denies nausea, Denies odynophagia, Denies vomiting and Denies hematemesis Musc Reports back pain Skin/Breast Denies pruritus, Denies lesions, Denies rash and Denies jaundice Neuro Reports Normal hearing present and Denies Abnormal speech present Endo Denies fatigue Aller/Immun Denies throat swelling and Denies tongue swelling Physical Exam Vital Signs: Last Vital Signs Pulse 68 01/22/23 10:41 BP 140/66 H 01/22/23 10:41 BMI result Body Mass Index 22.9 Const General: cooperative, no acute distress, well developed and well groomed Nutritional Appearance: well nourished and overweight Orientation/consciousness: oriented to person, oriented to place and oriented to time Limitations: language barrier HEENT Head: Yes normocephalic and Yes atraumatic Eyes General: appearance normal, both eyes and all related structures Pupils: Equal, round and reactive pupils present Neck Neck: Yes normal visual inspection and Yes no lymphadenopathy Thyroid: Thyroid normal Resp Effort & Inspection: normal respiratory effort and able to speak in complete sentences Auscultation: clear to auscultation bilaterally Cardio Rate: regular rate Rhythm: regular rhythm Heart sounds: Normal, physiologic split S2 sound present Peripheral pulses: radial pulses present and posterior tibial pulses present GI Inspection: No distended, No Abdominal panniculus present and Yes obesity Palpation (GI): Soft to palpation, Tenderness to palpation present (GI) periumbilically, no guarding, not rigid and No hepatosplenomegaly present Percussion: Yes normal to percussion Auscultation: normal bowel sounds Rectal Exam - Female: deferred Skin General skin exam: no rashes or lesions noted, turgor normal, skin not dry, no jaundice, No spider nevi and no striae Rashes: no rashes Nails: normal Neuro General: oriented to person, oriented to place and oriented to time Cranial nerves: Yes Equal, round and reactive pupils present and Yes Normal hearing present Speech: No Abnormal speech present Extrem General: Yes normal to inspection, No clubbing, No cyanosis and No edema Psych Appearance: grossly normal and well kempt Mental Status: mental status grossly normal Speech and movement: Normal speech and movement present Affect: normal affect Attitude: cooperative Thought process: Normal thought process present and not confabulating Thought content: Normal thought content present Insight: Limited insight present (Psych) Judgement: Limited judgement present (Psych) Assessment & Plan Assessment & Plan (1) GERD (gastroesophageal reflux disease): Code(s): K21.9 - Gastro-esophageal reflux disease without esophagitis Qualifiers: Esophagitis presence: esophagitis presence not specified Qualified Code(s): K21.9 - Gastro-esophageal reflux disease without esophagitis Plan: [place] #Chiara Live She says that she is taking the bentyl tid but she is still having sx of bloating and pain in the lower abdomen and back. She has very little diarrhea now. She says this started a month ago, and before this I was getting better, I don't know what happened. She is having difficulty with the qid creon dosing, so we will change to 2 qam and 2qpm and stop the bentyl and start imipramine at low dose qhs. She was having success with taking the Dexilant before her coffee, but in general her GERD has been worse with her bowel irritability. ROV 2 weeks to titrate. (2) Irritable bowel syndrome with diarrhea: Code(s): K58.0 - Irritable bowel syndrome with diarrhea Medications: New imipramine HCl 10 mg PO BEDTIME 30 tabs 3RF 30 days K58.0 - Irritable bowel syndrome with diarrhea Discontinued dicyclomine Discontinued Reason: Doctor's Order 20 mg PO QID 120 tabs 6RF K58.0 - Irritable bowel syndrome with diarrhea Coding Level of Care Code Est Pt Level 3 (21365) Diagnoses GERD (gastroesophageal reflux disease) K21.9 Esophagitis presence: esophagitis presence not specified Irritable bowel syndrome with diarrhea K58.0
== END 2023-01-22 11:13 | disposition home or self-care (01) ==
PROVIDERS: PCP Internal Medicine; Visit Provider Nurse Practitioner
DX: K21.9 Gastro-esophageal reflux disease without esophagitis (principal); K58.0 Irritable bowel syndrome with diarrhea
CPT/HCPCS: 99213

== ENCOUNTER → 2023-01-22 10:31 | Outpatient (BNVA) | payer MEDICARE, MEDICAID, SELFPAY | PROVIDERS: PCP Internal Medicine; Visit Provider Nurse Practitioner | DX: K76.9 Liver disease, unspecified (principal); K21.9 Gastro-esophageal reflux disease without esophagitis; K58.0 Irritable bowel syndrome with diarrhea; R14.0 Abdominal distension (gaseous) | CPT/HCPCS: 99212 ==

== ENCOUNTER 2023-02-09 10:00 | Outpatient (AMB) | payer MEDICARE, MEDICAID, SELFPAY ==
--- NOTE | 2023-02-09 10:01 | MHC.PC.OV ---
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 Required: No Accompanied by: Self / Same As Patient Allergies alendronate sodium [Fosamax] Allergy (Intermediate, Verified 02/09/23 10:08) low back pain ciprofloxacin [From CIPRO] Allergy (Intermediate, Verified 02/09/23 10:08) SHORTNESS OF BREATH cyclobenzaprine Allergy (Intermediate, Verified 02/09/23 10:08) DIZZY FOGGY , dizziness metronidazole [From FLAGYL] Allergy (Intermediate, Verified 02/09/23 10:08) DISTENDED ABDOMEN, DIFFICULTY BREATHING tramadol [TRAMADOL] Allergy (Intermediate, Verified 02/09/23 10:08) VOMITING Hydrocodone-Acetaminophen Allergy (Intermediate, Uncoded 02/09/23 10:08) dizziness, insomnia Medication List - Last Reconciled 02/09/23 by Cee Stinson MD aspirin 81 mg PO DAILY dexlansoprazole (Dexilant) 60 mg PO DAILY gabapentin 400 mg PO TID 30 days hydrocortisone 2.5% (Proctosol HC) 1 ea NM BID imipramine HCl 10 mg PO BEDTIME 30 days owilvu-zdmbtfhe-[id number] 24,000-76,000 -120,000 unit (Creon) 1 cap PO QID meclizine 25 mg PO DAILY PRN mecobalamin (vitamin B12) 1,000 mcg PO DAILY sennosides (senna) 17.2 mg (2 x 8.6 mg) PO BEDTIME PRN 30 days simethicone 180 mg PO QID tizanidine 2 mg PO Q8H PRN Tobacco use date assessed: 08/12/22 Fall risk assessment: No Falls in past year Last assessed Fall Risk: 02/09/23 Dental Screening Dental Screen Date: 02/09/23 Did you have a dental visit in the last 12 months?: Yes Did you have a dental problem in the last 6 months where you did not have access to dental care?: No Was dental information given to patient?: Patient has dentist HPI HPI Comments History of Present Illness Details This is a 67-year-old female with mild recurrent major depression, vertigo, constipation and GERD that comes today for follow-up on her conditions. She would like a referral for counseling for her depression. Vertigo stable with meclizine as needed. Constipation well controlled with senna as needed. GERD stable with Dexilant. No chest pain or shortness of breath. [facility] Medical History History of primary hyperparathyroidism Hyperparathyroidism Medicare annual wellness visit, initial Migraines Osteoporosis Polyarthralgia Right shoulder pain Thoracic spine pain Vertigo Vitamin D deficiency Surgical History Hx of cholecystectomy Hx of colonoscopy (~2009) Hx of endoscopy (~2009) Hx of parathyroidectomy Family History Father Colon cancer HTN (hypertension) Mother No problems noted. 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 1. Little interest or pleasure in doing things: not at all 2. Feeling down, depressed, or hopeless: several days 3. Trouble falling or staying asleep, or sleeping too much: several days 4. Feeling tired or having little energy: not at all 5. Poor appetite or overeating: not at all 6. Feeling bad about yourself - or that you are a failure or have let yourself or your family down: not at all 7. Trouble concentrating on things, such as reading the newspaper or watching television: not at all 8. Moving or speaking so slowly that other people could have noticed. Or the opposite - being so fidgety or restless that you have been moving around a lot more than usual: not at all 9. Thoughts that you would be better off or of hurting yourself in some way: not at all Total score: 2 Depression Screening Interpretation: Positive Depression Screening Follow-up: Existing condition and In treatment 02588 - PHQ-9 Billing: Yes Source: Developed by Drs. Abhijit Vega, Annamarie Rosa, Jr Bourne and colleagues, with an educational tia from [employer]. Thrive Questionnaire Date Thrive assessed: 08/12/22 GREGORY-7 AMB Questionnaire GREGORY-7 Date GREGORY - 7 assessed: 08/12/22 Source: Developed by Drs. Abhijit Vega, Jr Price and colleagues, with an educational tia from [employer]. Review of Systems Const All systems reviewed & are unremarkable except as noted in HPI and below Eyes Reports no additional complaints, Denies change in vision and Denies other visual disturbances Card Denies chest pain at rest, Denies chest pain with activity, Denies edema, Denies irregular heart rhythm, Denies claudication, Denies dyspnea, Denies dyspnea on exertion, Denies orthopnea, Denies paroxysmal nocturnal dyspnea and Denies slow heart rate Resp Denies cough, Denies dyspnea and Denies dyspnea on exertion GI Denies abdominal pain, Denies change in bowel habits, Denies excessive flatus, Denies nausea and Denies vomiting Denies urinary incontinence, Denies urinary hesitancy and Denies urinary urgency Musc Denies abnormal gait, Denies atrophy, Denies deformity and Denies limited range of motion Skin/Breast Denies bleeding lesions, Denies changing lesions and Denies rash Neuro Denies abnormal gait and Denies lack of coordination Physical exam (Primary Care) Vital Signs: Last Vital Signs BP 120/70 02/09/23 10:02 BMI result Body Mass Index 22.7 Tobacco/Smoking Status: Tobacco use Status Tobacco use date assessed 08/12/22 02/09/23 10:06 Patient Tobacco Use Status Former Tobacco user 02/09/23 10:06 Tobacco use type Cigarette 02/09/23 10:06 e-Cigarette/Vaping Use Never Used 02/09/23 10:06 PHQ-9: PHQ-9 Score PHQ-9: Total score 2 02/09/23 10:11 Depression Screening Interpretation: Positive Depression Screening Follow-up: Existing condition and In treatment Thrive Assessment: Date of Thrive Assessment Date Thrive assessed 08/12/22 02/09/23 10:06 Eyes General: appearance normal, both eyes and all related structures Eyelids: Yes eyelids normal Conjunctivae: conjunctivae normal Neck Neck: Yes normal visual inspection and Yes supple Resp Effort & Inspection: normal respiratory effort Auscultation: clear to auscultation bilaterally Cardio Jugular venous distension: no JVD Rate: regular rate Rhythm: regular rhythm Heart sounds: S1 normal heart sound present and S2 normal heart sound present Extrem General: Yes full ROM Assessment and Plan Assessment & Plan (1) Mild recurrent major depression: Code(s): F33.0 - Major depressive disorder, recurrent, mild Plan: Referred to counseling. (2) GERD (gastroesophageal reflux disease): Code(s): K21.9 - Gastro-esophageal reflux disease without esophagitis Qualifiers: Esophagitis presence: esophagitis presence not specified Qualified Code(s): K21.9 - Gastro-esophageal reflux disease without esophagitis Plan: Continue Dexilant. (3) Vertigo: Code(s): R42 - Dizziness and giddiness Plan: Continue meclizine as needed. (4) Constipation by delayed colonic transit: Code(s): K59.01 - Slow transit constipation Plan: Continue senna as needed. Medications: Changed From meclizine 25 mg PO DAILY PRN To meclizine 25 mg PO DAILY 30 days PRN 30 tabs 0RF dizziness Coding Level of Care Code Est Pt Level 4 (56500) Diagnoses Mild recurrent major depression F33.0 GERD (gastroesophageal reflux disease) K21.9 Esophagitis presence: esophagitis presence not specified Vertigo R42 Constipation by delayed colonic transit K59.01 Time Spent (min) 22
[2023-02-09 10:02] VITALS: BP 120/70; BMI 22.7
== END 2023-02-09 10:18 | disposition home or self-care (01) ==
PROVIDERS: PCP Internal Medicine; Visit Provider Internal Medicine
DX: F33.0 Major depressive disorder, recurrent, mild (principal); K21.9 Gastro-esophageal reflux disease without esophagitis; R42 Dizziness and giddiness; K59.01 Slow transit constipation
CPT/HCPCS: 99214

== ENCOUNTER 2023-02-11 11:59 | Outpatient (AMB) | payer MEDICARE, MEDICAID, SELFPAY ==
--- NOTE | 2023-02-11 12:00 | MHC.OFFVIS ---
Intake Intake Visit Reasons: 2 week f/u IBS/GERD Allergies alendronate sodium [Fosamax] Allergy (Intermediate, Verified 02/09/23 10:08) low back pain ciprofloxacin [From CIPRO] Allergy (Intermediate, Verified 02/09/23 10:08) SHORTNESS OF BREATH cyclobenzaprine Allergy (Intermediate, Verified 02/09/23 10:08) DIZZY FOGGY , dizziness metronidazole [From FLAGYL] Allergy (Intermediate, Verified 02/09/23 10:08) DISTENDED ABDOMEN, DIFFICULTY BREATHING tramadol [TRAMADOL] Allergy (Intermediate, Verified 02/09/23 10:08) VOMITING Hydrocodone-Acetaminophen Allergy (Intermediate, Uncoded 02/09/23 10:08) dizziness, insomnia HPI 2 week f/u IBS/GERD HPI Details Adam Beal Live She says that she is taking the bentyl tid but she is still having sx of bloating and pain in the lower abdomen and back. She has very little diarrhea now. She says this started a month ago, and before this I was getting better, I don't know what happened. ? She is having difficulty with the qid creon dosing, so we will change to 2 qam and 2qpm and stop the bentyl and start imipramine at low dose qhs. She was having success with taking the Dexilant before her coffee, but in general her GERD has been worse with her bowel irritability. ROV 2 weeks to titrate. Assessment & Plan (1) GERD (gastroesophageal reflux disease): ?Code(s): K21.9 - Gastro-esophageal reflux disease without esophagitis ?Qualifiers: ?Esophagitis presence:?esophagitis presence not specified? Qualified Code(s):?K21.9 - Gastro-esophageal reflux disease without esophagitis (2) Irritable bowel syndrome with diarrhea: ?Code(s): K58.0 - Irritable bowel syndrome with diarrhea ? ? ? Medications: New imipramine HCl 10 mg? PO BEDTIME 30 days 30 tabs 3R F K58.0 - Irritable bowel syndrome wit h diarrhea ? Discontinued dicyclomine ?? Dis continued Reason:? Doctor's Order 20 mg? PO QID 120 tabs 6RF K58.0 - Irritable bowel syndrome wit h diarrhea ? TODAY'S VISIT [place]ian Erin Fletcher She is a little dizzy today. THis has been a longstanding issue land not changed with the imipramine. She is tolerating it and it helps a little. We will increase it to 20mg. She takes it at 6pm with food as it upset her stomach when empty. She does not seem to have too much sedation. She is taking the creon 2 tabs qam and 2 qpm, senna if needed for CIC, simthicone, and needs a refill on proctosol for roids. ROV 6 weeks to titrate imipramine. [facility] Medical History History of primary hyperparathyroidism Hyperparathyroidism Medicare annual wellness visit, initial Migraines Osteoporosis Polyarthralgia Right shoulder pain Thoracic spine pain Vertigo Vitamin D deficiency Surgical History Hx of cholecystectomy Hx of colonoscopy (~2009) Hx of endoscopy (~2009) Hx of parathyroidectomy Family History Father Colon cancer HTN (hypertension) Mother No problems noted. 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 Cognitive needs: No Hearing needs: No Vision needs: Yes Review of Systems Const Denies fatigue, Denies fever(s), Denies night sweats, Denies poor appetite and Denies weight loss Eyes Details: glasse Reports requires corrective lenses ENT Reports Normal hearing present, Denies dental pain, Denies dysphagia, Denies hearing loss, Denies mouth pain, Denies odynophagia, Denies throat swelling, Denies tongue swelling and Reports other (Dentition adequate) Card Reports no additional complaints Resp Reports no additional complaints GI Denies abdominal pain, Denies melena, Reports bloating, Denies hematochezia, Reports constipation, Reports GI cramping, Denies dysphagia, Denies excessive flatus, Denies early satiety, Reports heartburn, Denies diarrhea, Denies nausea, Denies odynophagia, Denies vomiting and Denies hematemesis Skin/Breast Denies pruritus, Denies lesions, Denies rash and Denies jaundice Neuro Reports Normal hearing present and Denies Abnormal speech present Endo Denies fatigue Aller/Immun Denies throat swelling and Denies tongue swelling Physical Exam Const General: cooperative, no acute distress, well developed and well groomed Nutritional Appearance: average body habitus and well nourished Orientation/consciousness: oriented to person, oriented to place and oriented to time Limitations: language barrier HEENT Head: Yes normocephalic and Yes atraumatic Eyes General: appearance normal, both eyes and all related structures Pupils: Equal, round and reactive pupils present Neck Neck: Yes normal visual inspection and Yes no lymphadenopathy Thyroid: Thyroid normal Resp Effort & Inspection: normal respiratory effort and able to speak in complete sentences Auscultation: clear to auscultation bilaterally Cardio Rate: regular rate Rhythm: regular rhythm Heart sounds: Normal, physiologic split S2 sound present Peripheral pulses: radial pulses present and posterior tibial pulses present GI Inspection: No distended and No Abdominal panniculus present Palpation (GI): Soft to palpation, Tenderness to palpation present (GI), no guarding, not rigid and No hepatosplenomegaly present Percussion: Yes normal to percussion Auscultation: normal bowel sounds Rectal Exam - Female: deferred Skin General skin exam: no rashes or lesions noted, turgor normal, skin not dry, no jaundice, No spider nevi and no striae Rashes: no rashes Nails: normal Neuro General: oriented to person, oriented to place and oriented to time Cranial nerves: Yes Equal, round and reactive pupils present and Yes Normal hearing present Speech: No Abnormal speech present Extrem General: Yes normal to inspection, No clubbing, No cyanosis and No edema Psych Appearance: grossly normal and well kempt Mental Status: mental status grossly normal Speech and movement: Normal speech and movement present Affect: normal affect Attitude: cooperative Thought process: Normal thought process present and not confabulating Thought content: Normal thought content present Insight: Limited insight present (Psych) Judgement: Limited judgement present (Psych) Assessment & Plan Assessment & Plan (1) Irritable bowel syndrome with diarrhea: Code(s): K58.0 - Irritable bowel syndrome with diarrhea Plan: [place]ian #Phuc Fletcher She is a little dizzy today. This has been a longstanding issue land not changed with the imipramine. She is tolerating it and it helps a little. We will increase it to 20mg. She takes it at 6pm with food as it upset her stomach when empty. She does not seem to have too much sedation. She is taking the creon 2 tabs qam and 2 qpm, senna if needed for CIC, simthicone, and needs a refill on proctosol for roids. (2) GERD (gastroesophageal reflux disease): Code(s): K21.9 - Gastro-esophageal reflux disease without esophagitis Qualifiers: Esophagitis presence: esophagitis presence not specified Qualified Code(s): K21.9 - Gastro-esophageal reflux disease without esophagitis (3) Hemorrhoids: Code(s): K64.9 - Unspecified hemorrhoids (4) Abdominal pain: Code(s): R10.9 - Unspecified abdominal pain Medications: Changed From imipramine HCl 10 mg PO BEDTIME 30 days 30 tabs 3RF K58.0 - Irritable bowel syndrome with diarrhea To imipramine HCl 20 mg (2 x 10 mg) PO BEDTIME 60 tabs 6RF 30 days K58.0 - Irritable bowel syndrome with diarrhea Refilled sennosides (senna) 17.2 mg (2 x 8.6 mg) PO BEDTIME PRN 60 caps 6RF constipation 30 days Coding Level of Care Code Est Pt Level 3 (36539) Diagnoses Irritable bowel syndrome with diarrhea K58.0 Gastroesophageal reflux disease, unspecified whether esophagitis present K21.9 Esophagitis presence: esophagitis presence not specified Hemorrhoids K64.9 Abdominal pain R10.9
== END 2023-02-11 14:35 | disposition home or self-care (01) ==
PROVIDERS: PCP Internal Medicine; Visit Provider Nurse Practitioner
DX: K58.0 Irritable bowel syndrome with diarrhea (principal); K21.9 Gastro-esophageal reflux disease without esophagitis; K64.9 Unspecified hemorrhoids; R10.9 Unspecified abdominal pain
CPT/HCPCS: 99213

== ENCOUNTER → 2023-02-11 11:59 | Outpatient (BNVA) | payer MEDICARE, MEDICAID, SELFPAY | PROVIDERS: PCP Internal Medicine; Visit Provider Nurse Practitioner | DX: K58.0 Irritable bowel syndrome with diarrhea (principal); K21.9 Gastro-esophageal reflux disease without esophagitis; K64.9 Unspecified hemorrhoids; R10.9 Unspecified abdominal pain | CPT/HCPCS: 99212 ==

== ENCOUNTER 2023-03-24 09:07 | Outpatient (AMB) | payer OTHER, SELFPAY ==
--- NOTE | 2023-03-24 09:09 | MHC.OFFVIS ---
Intake Vital Signs 03/24/23 09:14 Height 5 ft 3 in Weight 128 lb 11.999 oz BMI 22.8 BP 147/69 H Blood Pressure Location Lt brachial Position Sitting Pulse 67 Intake Visit Reasons: 6 week follow up Intake Note: Patient presents to in office visit today in follow up of GERD. CC: Patient reports occasional abdominal pain and back pain. She also reports she was getting nauseous while taking x2 Creon capsules in the morning so she is only now taking one and she is not having nausea. Patient reports GERD and states she has not received the Dexilant. 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 Accompanied by: Self / Same As Patient Allergies alendronate sodium [Fosamax] Allergy (Intermediate, Verified 02/09/23 10:08) low back pain ciprofloxacin [From CIPRO] Allergy (Intermediate, Verified 02/09/23 10:08) SHORTNESS OF BREATH cyclobenzaprine Allergy (Intermediate, Verified 02/09/23 10:08) DIZZY FOGGY , dizziness metronidazole [From FLAGYL] Allergy (Intermediate, Verified 02/09/23 10:08) DISTENDED ABDOMEN, DIFFICULTY BREATHING tramadol [TRAMADOL] Allergy (Intermediate, Verified 02/09/23 10:08) VOMITING Hydrocodone-Acetaminophen Allergy (Intermediate, Uncoded 02/09/23 10:08) dizziness, insomnia HPI 6 week follow up HPI Details Assessment & Plan (1) Irritable bowel syndrome with diarrhea: Code(s): K58.0 - Irritable bowel syndrome with diarrhea Plan: [place] Islander #Phuc LIve She is a little dizzy today. This has been a longstanding issue land not changed with the imipramine. She is tolerating it and it helps a little. We will increase it to 20mg. She takes it at 6pm with food as it upset her stomach when empty. She does not seem to have too much sedation. She is taking the creon 2 tabs qam and 2 qpm, senna if needed for CIC, simethicone, and needs a refill on proctosol for roids. (2) GERD (gastroesophageal reflux disease): Code(s): K21.9 - Gastro-esophageal reflux disease without esophagitis Qualifiers: Esophagitis presence: esophagitis presence not specified Qualified Code(s): K21.9 - Gastro-esophageal reflux disease without esophagitis (3) Hemorrhoids: Code(s): K64.9 - Unspecified hemorrhoids (4) Abdominal pain: Code(s): R10.9 - Unspecified abdominal pain Medications: Changed From imipramine HCl 10 mg PO BEDTIME 30 days 30 tabs 3R F K58.0 - Irritable bowel syndrome wit h diarrhea To imipramine HCl 20 mg (2 x 10 mg) PO BEDTIME 60 tabs 6RF 30 days K58.0 - Irritable bowel syndrome wit h diarrhea Refilled sennosides (senna) 17.2 mg (2 x 8.6 m g) PO BEDTIME PRN 60 caps 6RF consti pation 30 days TODAY'S VISIT [place] Island[place] #Indira Live She has not been receiving her Dexilant, this has been for months and she did have refills so I question if this is an insurance problem. She has continued on the creon, but she has had problems with GERD. She found that taking the creon 2 bid caused her nausea so she is breaking it up to qid. She continues on the imipramine qhs. She feels she is moving her bowels well and she has only occasional CIC, not really a problem for her. She wants a refill of her Proctosol cream which works extremely well for her as she has occasional rectal bleeding. ROV 8 weeks. [facility] Medical History Right shoulder pain Hyperparathyroidism Vitamin D deficiency Medicare annual wellness visit, initial Polyarthralgia Thoracic spine pain History of primary hyperparathyroidism Osteoporosis Migraines Vertigo Surgical History Hx of colonoscopy (~2009) Hx of endoscopy (~2009) Hx of parathyroidectomy Hx of cholecystectomy Family History Father Colon cancer HTN (hypertension) Mother No problems noted. 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 Cognitive needs: No Hearing needs: No Vision needs: Yes Review of Systems Const Denies fatigue, Denies fever(s), Denies night sweats, Denies poor appetite and Denies weight loss Eyes Details: glasses Reports requires corrective lenses ENT Reports Normal hearing present, Denies dental pain, Denies dysphagia, Denies hearing loss, Denies mouth pain, Denies odynophagia, Denies throat swelling, Denies tongue swelling and Reports other (Dentition adequate) Card Reports no additional complaints Resp Reports no additional complaints GI Denies abdominal pain, Denies melena, Denies bloating, Reports hematochezia, Reports constipation, Denies GI cramping, Denies dysphagia, Denies excessive flatus, Denies early satiety, Reports heartburn, Denies diarrhea, Denies nausea, Denies odynophagia, Denies vomiting and Denies hematemesis Skin/Breast Denies pruritus, Denies lesions, Denies rash and Denies jaundice Neuro Reports Normal hearing present and Denies Abnormal speech present Endo Denies fatigue Aller/Immun Denies throat swelling and Denies tongue swelling Physical Exam Vital Signs: Last Vital Signs Pulse 67 03/24/23 09:14 BP 147/69 H 03/24/23 09:14 BMI result Body Mass Index 22.8 Const General: cooperative, no acute distress, well developed and well groomed Nutritional Appearance: average body habitus and well nourished Orientation/consciousness: oriented to person, oriented to place and oriented to time Limitations: language barrier HEENT Head: Yes normocephalic and Yes atraumatic Eyes General: appearance normal, both eyes and all related structures Pupils: Equal, round and reactive pupils present Neck Neck: Yes normal visual inspection and Yes no lymphadenopathy Thyroid: Thyroid normal Resp Effort & Inspection: normal respiratory effort and able to speak in complete sentences Auscultation: clear to auscultation bilaterally Cardio Rate: regular rate Rhythm: regular rhythm Heart sounds: Normal, physiologic split S2 sound present Peripheral pulses: radial pulses present and posterior tibial pulses present GI Inspection: No distended and No Abdominal panniculus present Palpation (GI): Soft to palpation, nontender, no guarding, not rigid and No hepatosplenomegaly present Percussion: Yes normal to percussion Auscultation: normal bowel sounds Rectal Exam - Female: deferred Skin General skin exam: no rashes or lesions noted, turgor normal, skin not dry, no jaundice, No spider nevi and no striae Rashes: no rashes Nails: normal Neuro General: oriented to person, oriented to place and oriented to time Cranial nerves: Yes Equal, round and reactive pupils present and Yes Normal hearing present Speech: No Abnormal speech present Extrem General: Yes normal to inspection, No clubbing, No cyanosis and No edema Psych Appearance: grossly normal and well kempt Mental Status: mental status grossly normal Speech and movement: Normal speech and movement present Affect: normal affect Attitude: cooperative Thought process: Normal thought process present and not confabulating Thought content: Normal thought content present Insight: Limited insight present (Psych) Judgement: Limited judgement present (Psych) Assessment & Plan Assessment & Plan (1) Irritable bowel syndrome with diarrhea: Code(s): K58.0 - Irritable bowel syndrome with diarrhea Plan: [place] #Indira Alfredo She has not been receiving her Dexilant, this has been for months and she did have refills so I question if this is an insurance problem. She has continued on the creon, but she has had problems with GERD. She found that taking the creon 2 bid caused her nausea so she is breaking it up to qid. She continues on the imipramine qhs. She feels she is moving her bowels well and she has only occasional CIC, not really a problem for her. She wants a refill of her Proctosol cream which works extremely well for her as she has occasional rectal bleeding. ROV 8 weeks. (2) GERD (gastroesophageal reflux disease): Code(s): K21.9 - Gastro-esophageal reflux disease without esophagitis Qualifiers: Esophagitis presence: esophagitis presence not specified Qualified Code(s): K21.9 - Gastro-esophageal reflux disease without esophagitis (3) Thoracic spondylosis: Code(s): M47.814 - Spondylosis without myelopathy or radiculopathy, thoracic region Medications: New hydrocortisone 2.5% (Proctosol HC) BE SURE TO INCLUDE RECTAL APPICATOR!! [address] BID 30 grams 6RF hemorrhoids K64.9 - Unspecified hemorrhoids Refilled imipramine HCl 20 mg (2 x 10 mg) PO BEDTIME 30 days 60 tabs 6RF K58.0 - Irritable bowel syndrome with diarrhea [id number] 24,000-76,000 -120,000 unit (Creon) 1 cap PO QID 120 caps 6RF K58.9 - Irritable bowel syndrome without diarrhea sennosides (senna) 17.2 mg (2 x 8.6 mg) PO BEDTIME 30 days PRN 60 caps 6RF constipation dexlansoprazole (Dexilant) 60 mg PO DAILY 90 caps 1RF K21.9 - Gastro-esophageal reflux disease without esophagitis simethicone 180 mg PO QID 120 caps 6RF R14.0 - Abdominal distension (gaseous) dexlansoprazole (Dexilant) 60 mg PO DAILY 90 caps 1RF K21.9 - Gastro-esophageal reflux disease without esophagitis Coding Level of Care Code Est Pt Level 3 (60983) Diagnoses Irritable bowel syndrome with diarrhea K58.0 Gastroesophageal reflux disease, unspecified whether esophagitis present K21.9 Esophagitis presence: esophagitis presence not specified Thoracic spondylosis M47.814
[2023-03-24 09:14] VITALS: BP 147/69; PULSE 67; BMI 22.8
== END 2023-03-24 09:49 | disposition home or self-care (01) ==
PROVIDERS: PCP Internal Medicine; Visit Provider Nurse Practitioner
DX: K58.0 Irritable bowel syndrome with diarrhea (principal); K21.9 Gastro-esophageal reflux disease without esophagitis; M47.814 Spondylosis without myelopathy or radiculopathy, thoracic region
CPT/HCPCS: 99213

== ENCOUNTER → 2023-03-24 09:07 | Outpatient (BNVA) | payer OTHER, SELFPAY | PROVIDERS: PCP Internal Medicine; Visit Provider Nurse Practitioner | DX: K58.0 Irritable bowel syndrome with diarrhea (principal); K21.9 Gastro-esophageal reflux disease without esophagitis; M47.814 Spondylosis without myelopathy or radiculopathy, thoracic region | CPT/HCPCS: 99212 ==

== ENCOUNTER 2023-05-19 09:15 | Outpatient (AMB) | payer OTHER, SELFPAY ==
--- NOTE | 2023-05-19 09:20 | A.OFFVIS_ITS ---
Intake Vital Signs 05/19/23 09:22 Height 5 ft 3 in Weight 124 lb BMI 22.0 BP 109/50 L Blood Pressure Location Lt brachial Position Sitting Pulse 74 Intake Visit Reasons: 8 weeks GERD, CIC Intake Note: Patient presents to in office visit today in follow up of GERD. CC: Patient states she still has abdominal pain and back pain some times. She reports constipation and occasional blood in the stools. 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 Required: Yes Accompanied by: Self / Same As Patient Allergies alendronate sodium [Fosamax] Allergy (Intermediate, Verified 05/19/23 09:26) low back pain ciprofloxacin [From CIPRO] Allergy (Intermediate, Verified 05/19/23 09:26) SHORTNESS OF BREATH cyclobenzaprine Allergy (Intermediate, Verified 05/19/23 09:26) DIZZY FOGGY , dizziness metronidazole [From FLAGYL] Allergy (Intermediate, Verified 05/19/23 09:26) DISTENDED ABDOMEN, DIFFICULTY BREATHING tramadol [TRAMADOL] Allergy (Intermediate, Verified 05/19/23 09:26) VOMITING Hydrocodone-Acetaminophen Allergy (Intermediate, Uncoded 02/09/23 10:08) dizziness, insomnia HPI 8 weeks GERD, CIC HPI Details Assessment & Plan (1) Irritable bowel syndrome with diarrh ea: Code(s): K58.0 - Irritable bowel syndrome with diarrhea Plan: [place] [facility] [employer] She has not been receiving her Dexilant, this has been for months and she did have refills so I question if this is an insurance problem. She has continued on the creon, but she has had problems with GERD. She found that taking the creon 2 bid caused her nausea so she is breaking it up to qid. She continues on the imipramine qhs. She feels she is moving her bowels well and she has only occasional CIC, not really a problem for her. She wants a refill of her Proctosol cream which works extremely well for her as she has occasional rectal bleeding. ROV 8 weeks. (2) GERD (gastroesophageal reflux diseas e): Code(s): K21.9 - Gastro-esophageal reflux disease without esophagitis Qualifiers: Esophagitis presence: esophagitis presence not specified Qualified Code(s): K21.9 - Gastro-esophageal reflux disease without esophagitis (3) Thoracic spondylosis: Code(s): M47.814 - Spondylosis without myelopathy or radiculopathy, thoracic region Medications: New hydrocortisone 2.5 % (Proctosol HC) BE SURE TO INCLU DE RECTAL APPICATO R!! 1 appl WA BID 30 grams 6RF hemorrho ids K64.9 - Unspecifie d hemorrhoids Refilled imipramine HCl 20 mg (2 x 10 mg) PO BEDTIME 30 days 60 tabs 6RF K58.0 - Irritable bowel syndrome wit h diarrhea [id number]-[id number]-zn ylase 24,000-76,00 0 -120,000 unit (C reon) 1 cap PO QID 120 caps 6RF K58.9 - Irritable bowel syndrome wit hout diarrhea sennosides (senna) 17.2 mg (2 x 8.6 m g) PO BEDTIME 30 d ays PRN 60 caps 6R F constipation dexlansoprazole (D exilant) 60 mg PO DAILY 90 caps 1RF K21.9 - Gastro-eso phageal reflux dis ease without esoph agitis simethicone 180 mg PO QID 120 caps 6RF R14.0 - Abdominal distension (gaseou s) dexlansoprazole (D exilant) 60 mg PO DAILY 90 caps 1RF K21.9 - Gastro-eso phageal reflux dis ease without esoph agiti CORRESPONDENCE On 03/25/23 @ 10:44 Arya Olivas Wrote To HuaCallie Per pharmacy medication does not need PA. On 03/24/23 @ 09:41 Callie Sequeira Wrote To Arya Olivas She has not been receiving her Dexilant, please call the pharmacy and find out if PA needed. TODAY'S VISIT [place] and [place]. She is doing better with the diarrhea with the imipramine, but she still has back pain that radiates to her upper abd. She has had PT w/o any improvement, so will refer to pain mgmt. She is c/o losing weight. But her diarrhea is improving with imipramine and creon, and she is also using simethicone. BUT SHE IS NOT SURE IF SHE IS RECEIVING HER DEXILANT. I show her the pill pictures and she does not recognize it. This could be part of her upper abdominal pain along with her severe thoracic spondylosis. Phone call the pharmacy they say she has not picked up this medication since 2021 so I urged her to going get it since it does not require a PA and she does have a prescription. She tells me she will going get it. She has been having some mild rectal bleeding intermittently and she is due for a screening colonoscopy given her history of tubular adenoma and family history next year so we will get this ordered. In the meantime I encouraged her to utilize her Proctosol cream. She denies any cardiac or respiratory problems. There are no prior problems with anesthesia or sedation. There are no infectious disease problems. [facility] Medical History (Updated 05/19/23 @ 17:00 by ANDRÉS Oneil) Constipation by delayed colonic transit Family history of colon cancer in father Physical exam Right shoulder pain Hyperparathyroidism Vitamin D deficiency Medicare annual wellness visit, initial Polyarthralgia Thoracic spine pain History of primary hyperparathyroidism Osteoporosis Migraines Vertigo Surgical History Hx of colonoscopy (~2009) Hx of endoscopy (~2009) Hx of parathyroidectomy Hx of cholecystectomy Family History Father Colon cancer HTN (hypertension) Mother No problems noted. 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 Cognitive needs: No Hearing needs: No Vision needs: Yes Review of Systems Const Denies fatigue, Denies fever(s), Denies night sweats, Denies poor appetite and Denies weight loss ENT Reports Normal hearing present, Denies dental pain, Denies dysphagia, Denies hearing loss, Denies mouth pain, Reports neck pain, Denies odynophagia, Denies throat swelling, Denies tongue swelling and Reports other (Dentition adequate) Card Reports no additional complaints Resp Reports no additional complaints GI Reports abdominal pain, Denies melena, Denies bloating, Reports hematochezia, Denies constipation, Denies GI cramping, Denies dysphagia, Denies excessive flatus, Denies early satiety, Reports heartburn, Reports diarrhea, Denies nausea, Denies odynophagia, Denies vomiting and Denies hematemesis Musc Reports back pain, Reports myalgias, Reports arthralgias, Reports neck pain, Reports radiating pain into limb and Reports stiffness Skin/Breast Denies pruritus, Denies lesions, Denies rash and Denies jaundice Neuro Reports Normal hearing present and Denies Abnormal speech present Endo Denies fatigue Aller/Immun Denies throat swelling and Denies tongue swelling Physical Exam Vital Signs: Last Vital Signs Pulse 74 05/19/23 09:22 BP 109/50 L 05/19/23 09:22 BMI result Body Mass Index 22.0 Const General: cooperative, no acute distress, well developed and well groomed Nutritional Appearance: average body habitus and well nourished Orientation/consciousness: oriented to person, oriented to place and oriented to time Limitations: language barrier HEENT Head: Yes normocephalic and Yes atraumatic Eyes General: appearance normal, both eyes and all related structures Pupils: Equal, round and reactive pupils present Neck Neck: Yes normal visual inspection and Yes no lymphadenopathy Thyroid: Thyroid normal Resp Effort & Inspection: normal respiratory effort and able to speak in complete sentences Auscultation: clear to auscultation bilaterally Cardio Rate: regular rate Rhythm: regular rhythm Heart sounds: Normal, physiologic split S2 sound present Peripheral pulses: radial pulses present and posterior tibial pulses present GI Inspection: No distended and No Abdominal panniculus present Palpation (GI): Soft to palpation, Tenderness to palpation present (GI) (Generalized to the upper abdomen under the ribcage), no guarding, not rigid and No hepatosplenomegaly present Percussion: Yes normal to percussion Auscultation: normal bowel sounds Rectal Exam - Female: deferred General: Yes CVA tenderness Back/Spine/Pelvis Back: CVA tenderness and back tenderness (Worse from T1-L2) Thoracic/Lumbar Spine: pain with thoraco-lumbar ROM, paraspinal muscle tenderness, thoraco-lumbar spasm, thoracic spinal tenderness, lumbar spinal tenderness and straight leg raise positive (Right side) Skin General skin exam: no rashes or lesions noted, turgor normal, skin not dry, no jaundice, No spider nevi and no striae Rashes: no rashes Nails: normal Neuro General: oriented to person, oriented to place and oriented to time Cranial nerves: Yes Equal, round and reactive pupils present and Yes Normal hearing present Speech: No Abnormal speech present Motor exam (neuro): 5/5 motor strength present throughout Deep tendon reflexes (DTR's): Right patellar reflex intensity grade: 3+, Left patellar reflex intensity grade: 3+, Right ankle reflex intensity grade: 3+ and Left ankle reflex intensity grade: 3+ Extrem General: Yes normal to inspection, No clubbing, No cyanosis and No edema Psych Appearance: grossly normal and well kempt Mental Status: mental status grossly normal Speech and movement: Normal speech and movement present Affect: normal affect Attitude: cooperative Thought process: Normal thought process present and not confabulating Thought content: Normal thought content present Insight: Limited insight present (Psych) Judgement: Limited judgement present (Psych) Assessment & Plan Assessment & Plan (1) Irritable bowel syndrome with diarrhea: Comment: Diarrhea dominant process although she will have occasional constipation Code(s): K58.0 - Irritable bowel syndrome with diarrhea Plan: [place] [employer] [place]. She is doing better with the diarrhea with the imipramine, but she still has back pain that radiates to her upper abd. She has had PT w/o any improvement, so will refer to pain mgmt. She is c/o losing weight. But her diarrhea is improving with imipramine and creon, and she is also using simethicone. BUT SHE IS NOT SURE IF SHE IS RECEIVING HER DEXILANT. I show her the pill pictures and she does not recognize it. This could be part of her upper abdominal pain along with her severe thoracic spondylosis. Phone call the pharmacy they say she has not picked up this medication since 2021 so I urged her to going get it since it does not require a PA and she does have a prescription. She tells me she will going get it. She has been having some mild rectal bleeding intermittently and she is due for a screening colonoscopy given her history of tubular adenoma and family history next year so we will get this ordered. In the meantime I encouraged her to utilize her Proctosol cream. She denies any cardiac or respiratory problems. There are no prior problems with anesthesia or sedation. There are no infectious disease problems. (2) GERD (gastroesophageal reflux disease): Code(s): K21.9 - Gastro-esophageal reflux disease without esophagitis Qualifiers: Esophagitis presence: esophagitis presence not specified Qualified Code(s): K21.9 - Gastro-esophageal reflux disease without esophagitis (3) Hemorrhoids: Code(s): K64.9 - Unspecified hemorrhoids (4) Abdominal bloating: Code(s): R14.0 - Abdominal distension (gaseous) (5) Family history of colon cancer in father: Comment: 2019 scope clear, repeat 5 years Code(s): Z80.0 - Family history of malignant neoplasm of digestive organs (6) Liver lesion: Comment: On ultrasound, CT shows this to be a benign hemangioma aeb Code(s): K76.9 - Liver disease, unspecified (7) Thoracic spine pain: Code(s): M54.6 - Pain in thoracic spine (8) Pre-op examination: Code(s): Z01.818 - Encounter for other preprocedural examination (9) Thoracic spondylosis: Code(s): M47.814 - Spondylosis without myelopathy or radiculopathy, thoracic region (10) Shoulder pain: Code(s): M25.519 - Pain in unspecified shoulder Plan [place] [employer] [place]. She is doing better with the diarrhea with the imipramine, but she still has back pain that radiates to her upper abd. She has had PT w/o any improvement, so will refer to pain mgmt. She is c/o losing weight. But her diarrhea is improving with imipramine and creon, and she is also using simethicone. BUT SHE IS NOT SURE IF SHE IS RECEIVING HER DEXILANT. I show her the pill pictures and she does not recognize it. This could be part of her upper abdominal pain along with her severe thoracic spondylosis. Phone call the pharmacy they say she has not picked up this medication since 2021 so I urged her to going get it since it does not require a PA and she does have a prescription. She tells me she will going get it. She has been having some mild rectal bleeding intermittently and she is due for a screening colonoscopy given her history of tubular adenoma and family history next year so we will get this ordered. In the meantime I encouraged her to utilize her Proctosol cream. She denies any cardiac or respiratory problems. There are no prior problems with anesthesia or sedation. There are no infectious disease problems. I am referring her to Pain Management also given the fact that she has multiple areas of pain complaints that have not responded to physical therapy in the past. Also get an x-ray of her cervical and lumbar spines and of her shoulder to help pain management progress in their evaluation treatment. Orders: Orders Complete Blood Count Auto Diff Today M25.519 - Pain in unspecified shoulder, M47.814 - Spondylosis without myelopathy or radiculopathy, thoracic region, Z01.818 - Encounter for other preprocedural examination C Reactive Protein Today M25.519 - Pain in unspecified shoulder, M47.814 - Spondylosis without myelopathy or radiculopathy, thoracic region, Z01.818 - Encounter for other preprocedural examination XR lumbar spine 2-3V Today M25.519 - Pain in unspecified shoulder, M47.814 - Spondylosis without myelopathy or radiculopathy, thoracic region, Z01.818 - Encounter for other preprocedural examination XR shoulder LT min 2V Today M25.519 - Pain in unspecified shoulder, M47.814 - Spondylosis without myelopathy or radiculopathy, thoracic region, Z01.818 - Encounter for other preprocedural examination Colonoscopy - GI Use Only Today M25.519 - Pain in unspecified shoulder, Z80.0 - Family history of malignant neoplasm of digestive organs Comprehensive Met. Panel Today M25.519 - Pain in unspecified shoulder, M47.814 - Spondylosis without myelopathy or radiculopathy, thoracic region, Z01.818 - Encounter for other preprocedural examination Erythrocyte Sedimentation Rate Today M25.519 - Pain in unspecified shoulder, M47.814 - Spondylosis without myelopathy or radiculopathy, thoracic region, Z01.818 - Encounter for other preprocedural examination Rheumatoid Factor Today M25.519 - Pain in unspecified shoulder, M47.814 - Spondylosis without myelopathy or radiculopathy, thoracic region, Z01.818 - Encounter for other preprocedural examination XR cervical spine 2V Today M25.519 - Pain in unspecified shoulder, M47.814 - Spondylosis without myelopathy or radiculopathy, thoracic region, Z01.818 - Encounter for other preprocedural examination XR shoulder RT 1V Today M25.519 - Pain in unspecified shoulder, M47.814 - Spondylosis without myelopathy or radiculopathy, thoracic region, Z01.818 - Encounter for other preprocedural examination Referrals Pain Management Referral M54.6 - Pain in thoracic spine, Z80.0 - Family history of malignant neoplasm of digestive organs Medications: New peg 3350-electrolytes 236-22.74-6.74 -5.86 gram (Golytely) until fecal effluent is clear; do not exceed a total volume of 2,000 mL 240 mL PO Q10M 1 day 4,000 mL 0RF Z12.11 - Encounter for screening for malignant neoplasm of colon Refilled dexlansoprazole (Dexilant) 60 mg PO DAILY 90 caps 3RF K21.9 - Gastro-esophageal reflux disease without esophagitis imipramine HCl 20 mg (2 x 10 mg) PO BEDTIME 30 days 60 tabs 6RF K58.0 - Irritable bowel syndrome with diarrhea Coding Level of Care Code Est Pt Level 4 (03017) Diagnoses Irritable bowel syndrome with diarrhea K58.0 Gastroesophageal reflux disease, unspecified whether esophagitis present K21.9 Esophagitis presence: esophagitis presence not specified Hemorrhoids K64.9 Abdominal bloating R14.0 Family history of colon cancer in father Z80.0 Liver lesion K76.9 Thoracic spine pain M54.6 Pre-op examination Z01.818 Thoracic spondylosis M47.814 Shoulder pain M25.519
[2023-05-19 09:22] VITALS: BP 109/50; PULSE 74; BMI 22.0
== END 2023-05-19 10:02 | disposition home or self-care (01) ==
PROVIDERS: PCP Internal Medicine; Visit Provider Nurse Practitioner
DX: K58.0 Irritable bowel syndrome with diarrhea (principal); K21.9 Gastro-esophageal reflux disease without esophagitis; K64.9 Unspecified hemorrhoids; R14.0 Abdominal distension (gaseous); Z80.0 Family history of malignant neoplasm of digestive organs; K76.9 Liver disease, unspecified; M54.6 Pain in thoracic spine; Z01.818 Encounter for other preprocedural examination; M47.814 Spondylosis without myelopathy or radiculopathy, thoracic region; M25.519 Pain in unspecified shoulder
CPT/HCPCS: 99214

== ENCOUNTER → 2023-05-19 09:15 | Outpatient (BNVA) | payer OTHER, SELFPAY | PROVIDERS: PCP Internal Medicine; Visit Provider Nurse Practitioner | DX: Z01.818 Encounter for other preprocedural examination (principal); K58.0 Irritable bowel syndrome with diarrhea; K21.9 Gastro-esophageal reflux disease without esophagitis; K64.9 Unspecified hemorrhoids; R14.0 Abdominal distension (gaseous); K76.9 Liver disease, unspecified; M47.814 Spondylosis without myelopathy or radiculopathy, thoracic region; M25.519 Pain in unspecified shoulder; Z80.0 Family history of malignant neoplasm of digestive organs | CPT/HCPCS: 99212 ==

== ENCOUNTER 2023-05-28 09:18 | Outpatient (REF) | payer OTHER, SELFPAY ==
--- NOTE | ~2023-05-28 | XR_ITS ---
EXAMINATION: XR CERVICAL SPINE CLINICAL INFORMATION: Reason for Exam Z01.818 - Encounter for other preprocedural examination COMPARISON: X-rays of the cervical spine May 2015 TECHNIQUE: 3 views of the cervical spine were obtained. FINDINGS: There are no prevertebral soft tissue or bony abnormalities demonstrated. No compression fractures or subluxations are identified. Alignment is maintained at the atlanto-axial articulation. The disc spaces are preserved. No endplate changes are seen. The prevertebral soft tissues are normal surgical clips anterior to the lower cervical spine. The foramina are patent. XR/XR cervical spine 2V IMPRESSION: Unremarkable examination.
--- NOTE | ~2023-05-28 | XR_ITS ---
EXAMINATION: XR SHOULDER, RIGHT XR SHOULDER, LEFT CLINICAL INFORMATION: Encounter for other preprocedural examination, Z01.818 COMPARISON: X-ray right shoulder July 2021. X-ray the left shoulder October 2015 TECHNIQUE: 4 views of each shoulder. FINDINGS: RIGHT SHOULDER: There is a small focus of calcific density adjacent to the greater tuberosity measuring approximately 1 mm, new compared to prior. ACROMIOCLAVICULAR JOINT: Mild arthrosis manifested by minimal marginal osteophytes unchanged. GLENOHUMERAL JOINT: Normal SURROUNDING BONE AND SOFT TISSUES: Unremarkable. LEFT SHOULDER: There is an 8 x 5 mm area of calcific density adjacent to the greater tuberosity which is new compared to prior. This likely reflects calcific tendinosis or calcific tendinitis. Mild arthrosis of the acromioclavicular joint. Glenohumeral joint normal. XR/XR shoulder LT min 2V IMPRESSION: RIGHT SHOULDER: Small focus of calcific density adjacent to the greater tuberosity new compared to prior likely reflects calcific tendinosis or calcific tendinitis. Mild arthrosis of the acromioclavicular joint unchanged. LEFT SHOULDER: 1. Calcific tendinosis/calcific tendinitis of the superior rotator cuff. 2. Mild arthrosis of the acromioclavicular joint.
--- NOTE | ~2023-05-28 | XR_ITS ---
EXAMINATION: XR LUMBOSACRAL SPINE CLINICAL INFORMATION: Encounter for other preprocedural examination, Z01.818. COMPARISON: X-ray lumbosacral spine May 2016 TECHNIQUE: Three views of the lumbosacral spine. FINDINGS: Vertebral bodies normally aligned with normal height. There are multilevel degenerative disc changes overall mild manifested by endplate osteophytes from L1-L2 through L5-S1 unchanged. Probable facet arthrosis bilaterally at L5-S1. Surgical clips incidentally noted in the right upper quadrant and right pelvis. Partially visualized pelvis including sacroiliac joints normal. XR/XR lumbar spine 2-3V IMPRESSION: Mild multilevel spondylosis of the lumbosacral spine unchanged compared with 2016.
--- NOTE | ~2023-05-28 | XR_ITS ---
EXAMINATION: XR SHOULDER, RIGHT XR SHOULDER, LEFT CLINICAL INFORMATION: Encounter for other preprocedural examination, Z01.818 COMPARISON: X-ray right shoulder July 2021. X-ray the left shoulder October 2015 TECHNIQUE: 4 views of each shoulder. FINDINGS: RIGHT SHOULDER: There is a small focus of calcific density adjacent to the greater tuberosity measuring approximately 1 mm, new compared to prior. ACROMIOCLAVICULAR JOINT: Mild arthrosis manifested by minimal marginal osteophytes unchanged. GLENOHUMERAL JOINT: Normal SURROUNDING BONE AND SOFT TISSUES: Unremarkable. LEFT SHOULDER: There is an 8 x 5 mm area of calcific density adjacent to the greater tuberosity which is new compared to prior. This likely reflects calcific tendinosis or calcific tendinitis. Mild arthrosis of the acromioclavicular joint. Glenohumeral joint normal. XR/XR shoulder RT min 2V IMPRESSION: RIGHT SHOULDER: Small focus of calcific density adjacent to the greater tuberosity new compared to prior likely reflects calcific tendinosis or calcific tendinitis. Mild arthrosis of the acromioclavicular joint unchanged. LEFT SHOULDER: 1. Calcific tendinosis/calcific tendinitis of the superior rotator cuff. 2. Mild arthrosis of the acromioclavicular joint.
[2023-05-28 09:53] LABS: MANUAL DIFF FLAG NO
[2023-05-28 10:19] LABS: Basophils Percent Auto 0.6 % (0-2); Eosinophils Absolute Auto 0.1 X10*3/uL (0.0-0.4); Eosinophils Percent Auto 1.5 % (0-4); Hemoglobin 13.3 g/dl (12.0-16.0); Imm Gran Abs Auto 0.01 X10*3/uL (0.00-0.03); Imm Gran Pct Auto 0.3 % (0.0-0.4); Lymphocytes Absolute Auto 1.6 X10*3/uL (1.2-4.9); Mean Corpuscular HGB Conc 32.4 g/dl (31.0-35.0); Mean Corpuscular Hemoglobin 28.9 pg (27.0-33.0); Mean Corpuscular Volume 89.1 fL (80.0-98.0); Mean Platelet Volume 9.9 fL (9.4-12.3); Monocytes Absolute Auto 0.3 X10*3/uL (0.1-1.2); Monocytes Percent Auto 8.5 % (2-11); Neutrophils Absolute Auto 1.4 x10*3/uL (2.0-8.3); Neutrophils Percent Auto 41.1 % (45-73); Platelet Count 250 X10*3/uL (160-400); White Blood Count 3.3 X10*3/uL (4.8-10.8)
[2023-05-28 10:50] LABS: Rheumatoid Factor < 13.0 IU/mL (<15.0)
[2023-05-28 10:52] LABS: Alanine Aminotransferase 14 U/L (0-31); Albumin Level 3.8 g/dL (3.5-5.0); Alkaline Phosphatase 130 U/L (39-117); Anion Gap 11 (12-20); Aspartate Amino Transferase 17 U/L (5-31); Bilirubin Total 0.3 mg/dL (0.0-1.0); Blood Urea Nitrogen 7 mg/dL (9-16); C Reactive Protein 0.24 mg/dL (< or = 0.50); Calcium 9.3 mg/dL (8.4-10.2); Carbon Dioxide 31 mmol/L (22-29); Chloride 105 mmol/L (96-108); Estimated Glomerular Filt Rate > 60; Glucose Random 89 mg/dL (60-115); Potassium 4.2 mmol/L (3.3-5.1); Sodium 143 mmol/L (135-145); Total Protein 7.2 g/dL (6.5-8.0)
[2023-05-28 11:09] LABS: Erythrocyte Sedimentation Rate 13 MM/HR (0-20)
== END 2023-05-28 09:19 | disposition home or self-care (01) ==
LOC: HO.LAB 09:18
PROVIDERS: PCP Internal Medicine; Visit Provider Nurse Practitioner
DX: Z01.818 Encounter for other preprocedural examination (principal); M47.814 Spondylosis without myelopathy or radiculopathy, thoracic region; M25.511 Pain in right shoulder; M25.512 Pain in left shoulder
CPT/HCPCS: 36415; 72040; 72100; 73030; 80053; 85025; 85652; 86140; 86431

== ENCOUNTER 2023-06-18 11:01 | Outpatient (AMB) | payer OTHER, SELFPAY ==
--- NOTE | 2023-06-18 11:16 | MHC.OFFVIS ---
Intake Vital Signs 06/18/23 11:29 Height 5 ft 3 in Weight 124 lb 8 oz BMI 22.1 BP 117/70 Blood Pressure Location Lt brachial Position Sitting Respiration 18 Pulse 64 Pulse Source Pulse Oximeter Pulse Oximetry (%) 98 Oxygen Delivery Method Room Air Intake Visit Reasons: Pain in thoracic spine/Confirmed Allergies alendronate sodium [Fosamax] Allergy (Intermediate, Verified 06/18/23 11:14) low back pain ciprofloxacin [From CIPRO] Allergy (Intermediate, Verified 06/18/23 11:14) SHORTNESS OF BREATH cyclobenzaprine Allergy (Intermediate, Verified 06/18/23 11:14) DIZZY FOGGY , dizziness metronidazole [From FLAGYL] Allergy (Intermediate, Verified 06/18/23 11:14) DISTENDED ABDOMEN, DIFFICULTY BREATHING tramadol [TRAMADOL] Allergy (Intermediate, Verified 06/18/23 11:14) VOMITING Hydrocodone-Acetaminophen Allergy (Intermediate, Uncoded 02/09/23 10:08) dizziness, insomnia HPI HPI Comments History of Present Illness Details Gaviota is a very pleasant 67-year-old Kyrgyz-speaking female who presented to the office today for evaluation management of her chronic back and shoulder pain. Patient reports her back pain is the most bothersome and she would like to focus on that area today. Visit was completed with building estimator# [id number]. Patient states that she has been suffering with this pain for many years. She completed physical therapy approximately 3 years ago, continues with home exercise program that helps a little bit. She takes Aleve that also provides little bit of relief. She has tried lidocaine patches in the past which did help. Patient reports pain midline lumbar area, worse with sitting for extended period of time, changing from sit to stand, walking and going up stairs. Patient had recent imaging, results reviewed as per below. Patient denies radiation down either extremity. She denies numbness, tingling, weakness or shooting pain down either extremity. Patient denies red flag symptoms including new loss of bowel, bladder or saddle anesthesia. Pain is worse throughout the day, rated today as 7/10. In terms of muscle damage condition is described as aching, cramping, throbbing, stabbing, sharp. Pain is negatively impacting patient's general activity, mood, sleep, walking, recreational activities and ability to perform activities of daily living. [facility] Medical History (Updated 06/18/23 @ 11:41 by Kayla Hill, [employer] S[employer]TER, [employer] TE[employer]ER) Constipation by delayed colonic transit Family history of colon cancer in father Physical exam Right shoulder pain Hyperparathyroidism Vitamin D deficiency Medicare annual wellness visit, initial Polyarthralgia Thoracic spine pain History of primary hyperparathyroidism Osteoporosis Migraines Vertigo Surgical History Hx of colonoscopy (~2009) Hx of endoscopy (~2009) Hx of parathyroidectomy Hx of cholecystectomy Family History Father Colon cancer HTN (hypertension) Mother No problems noted. 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 Answers questions appropriately. Fully engaged in examination. Skin: warm, dry, intact HEENT: Normocephalic. Hearing intact. Cardiac: External chest normal in appearance. Respiratory: No cough, audible wheezing or stridor. Abdomen: without gross distension. MS: No obvious swelling or deformities. Able to stand on bilateral tiptoes and bilateral heels.? Able to transition from sit to stand unassisted. Ambulates with bilaterally normal heel strike and toe off Tenderness to palpation over lumbar vertebrae and lumbar paraspinal muscles facet loading positive SLR negative bilaterally pain increase with flexion at 60 degrees, no pain increase with extension to 10 degrees BLE strength 5/5 Neurological: Oriented to person, place, time and situation. Thought process intact. No gait abnormalities appreciated. Psychiatric: Appropriate mood and affect. Good judgment and insight. Results Reviewed Results Reviewed: 05/28/23 XR/XR lumbar spine 2-3V FINDINGS: Vertebral bodies normally aligned with normal height. There are multilevel degenerative disc changes overall mild manifested by endplate osteophytes from L1-L2 through L5-S1 unchanged. Probable facet arthrosis bilaterally at L5-S1. Surgical clips incidentally noted in the right upper quadrant and right pelvis. Partially visualized pelvis including sacroiliac joints normal. IMPRESSION: Mild multilevel spondylosis of the lumbosacral spine unchanged compared with 2016. Assessment & Plan Assessment & Plan (1) Shoulder pain: Code(s): M25.519 - Pain in unspecified shoulder (2) Lumbar spondylosis: Code(s): M47.816 - Spondylosis without myelopathy or radiculopathy, lumbar region Plan Gaviota is a very pleasant 67-year-old female who presented to the office today for evaluation management of her chronic lower back pain. History, physical exam and provocative testing consistent with lumbar spondylosis and lumbar paraspinal muscle spasm. Order placed for PT eval and treat. Lidocaine 5% patches, we want most painful area for up to 12 hours. Baclofen 5 mg p.o. twice daily as needed. Patient instructed on cautions for use. All questions and concerns were answered, patient agrees with the plan. Patient will follow up in the office after physical therapy, if she does not find relief with current treatment plan will schedule for fluoroscopy guided bilateral diagnostic L3-L4 DR L5 medial branch blocks with local anesthetic. Patient does not want to proceed with injections at this time, she wants to try conservative therapy first. Orders: Orders PT Evaluation and Treatment Today M47.816 - Spondylosis without myelopathy or radiculopathy, lumbar region Medications: New lidocaine 5% leave on most painful area for up to 12 hrs 1 patch topical DAILY 30 ea 3RF baclofen Do not take with Tizanidine, alcohol or other [employer] 9 THRU 12 TEACHER depressants 5 mg PO BID PRN 60 tabs 1RF muscle spasm Coding Level of Care Code New Pt Level 4 (38599) Diagnoses Shoulder pain M25.519 Lumbar spondylosis M47.816
[2023-06-18 11:29] VITALS: BP 117/70; PULSE 64; RESP 18; O2SAT 98; BMI 22.1
== END 2023-06-18 11:56 | disposition home or self-care (01) ==
PROVIDERS: PCP Internal Medicine; Visit Provider Registered Nurse Emergency
DX: M25.519 Pain in unspecified shoulder (principal); M47.816 Spondylosis without myelopathy or radiculopathy, lumbar region
CPT/HCPCS: 99204

== ENCOUNTER → 2023-06-18 11:01 | Outpatient (BNVA) | payer OTHER, SELFPAY | PROVIDERS: PCP Internal Medicine; Visit Provider Registered Nurse Emergency | DX: M25.519 Pain in unspecified shoulder (principal); M47.816 Spondylosis without myelopathy or radiculopathy, lumbar region | CPT/HCPCS: 99202 ==

== ENCOUNTER 2023-08-07 09:56 | Outpatient (AMB) | payer OTHER, SELFPAY ==
--- NOTE | 2023-08-07 09:58 | MHC.OFFVIS ---
Intake Vital Signs 08/07/23 09:59 Height 5 ft 3 in Weight 127 lb 13.89 oz BMI 22.6 BP 117/61 Blood Pressure Location Lt brachial Position Sitting Pulse 63 Intake Visit Reasons: 8 Weeks Follow up Intake Note: Patient here for 8wk f/u GERD and IBS. Patient reports stable conditions. 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 Accompanied by: Self / Same As Patient Allergies alendronate sodium [Fosamax] Allergy (Intermediate, Verified 08/24/23 09:29) low back pain ciprofloxacin [From CIPRO] Allergy (Intermediate, Verified 08/24/23 09:29) SHORTNESS OF BREATH cyclobenzaprine Allergy (Intermediate, Verified 08/24/23 09:29) DIZZY FOGGY , dizziness metronidazole [From FLAGYL] Allergy (Intermediate, Verified 08/24/23 09:29) DISTENDED ABDOMEN, DIFFICULTY BREATHING tramadol [TRAMADOL] Allergy (Intermediate, Verified 08/24/23 09:29) VOMITING Hydrocodone-Acetaminophen Allergy (Intermediate, Uncoded 08/24/23 09:29) dizziness, insomnia HPI 8 Weeks Follow up HPI Details Assessment & Plan (1) Irritable bowel syndrome with diarrhea: Comment: Diarrhea dominant process although she will have occasional constipation Code(s): K58.0 - Irritable bowel syndrome with diarrhea Plan: Indonesian #Lincoln and Indira. She is doing better with the diarrhea with the imipramine, but she still has back pain that radiates to her upper abd. She has had PT w/o any improvement, so will refer to pain mgmt. She is c/o losing weight. But her diarrhea is improving with imipramine and creon, and she is also using simethicone. BUT SHE IS NOT SURE IF SHE IS RECEIVING HER DEXILANT. I show her the pill pictures and she does not recognize it. This could be part of her upper abdominal pain along with her severe thoracic spondylosis. Phone call the pharmacy they say she has not picked up this medication since 2021 so I urged her to going get it since it does not require a PA and she does have a prescription. She tells me she will going get it. She has been having some mild rectal bleeding intermittently and she is due for a screening colonoscopy given her history of tubular adenoma and family history next year so we will get this ordered. In the meantime I encouraged her to utilize her Proctosol cream. She denies any cardiac or respiratory problems. There are no prior problems with anesthesia or sedation. There are no infectious disease problems. (2) GERD (gastroesophageal reflux disease): Code(s): K21.9 - Gastro-esophageal reflux disease without esophagitis Qualifiers: Esophagitis presence: esophagitis presence not specified Qualified Code(s): K21.9 - Gastro-esophageal reflux disease without esophagitis (3) Hemorrhoids: Code(s): K64.9 - Unspecified hemorrhoids (4) Abdominal bloating: Code(s): R14.0 - Abdominal distension (gaseous) (5) Family history of colon cancer in father: Comment: 2019 scope clear, repeat 5 years Code(s): Z80.0 - Family history of malignant neoplasm of digestive organs (6) Liver lesion: Comment: On ultrasound, CT shows this to be a benign hemangioma aeb Code(s): K76.9 - Liver disease, unspecified (7) Thoracic spine pain: Code(s): M54.6 - Pain in thoracic spine (8) Pre-op examination: Code(s): Z01.818 - Encounter for other preprocedural examination (9) Thoracic spondylosis: Code(s): M47.814 - Spondylosis without myelopathy or radiculopathy, thoracic region (10) Shoulder pain: Code(s): M25.519 - Pain in unspecified shoulder Plan Indonesian #Lincoln and Indira. She is doing better with the diarrhea with the imipramine, but she still has back pain that radiates to her upper abd. She has had PT w/o any improvement, so will refer to pain mgmt. She is c/o losing weight. But her diarrhea is improving with imipramine and creon, and she is also using simethicone. BUT SHE IS NOT SURE IF SHE IS RECEIVING HER DEXILANT. I show her the pill pictures and she does not recognize it. This could be part of her upper abdominal pain along with her severe thoracic spondylosis. Phone call the pharmacy they say she has not picked up this medication since 2021 so I urged her to going get it since it does not require a PA and she does have a prescription. She tells me she will going get it. She has been having some mild rectal bleeding intermittently and she is due for a screening colonoscopy given her history of tubular adenoma and family history next year so we will get this ordered. In the meantime I encouraged her to utilize her Proctosol cream. She denies any cardiac or respiratory problems. There are no prior problems with anesthesia or sedation. There are no infectious disease problems. I am referring her to Pain Management also given the fact that she has multiple areas of pain complaints that have not responded to physical therapy in the past. Also get an x-ray of her cervical and lumbar spines and of her shoulder to help pain management progress in their evaluation treatment. Orders: Orders Complete Blood Cou nt Auto Diff Today M25.519 - Pain in unspecified should er, M47.814 - Spon dylosis without my elopathy or radicu lopathy, thoracic region, Z01.818 - Encounter for othe r preprocedural ex amination C Reactive Protein Today M25.519 - Pain in unspecified should er, M47.814 - Spon dylosis without my elopathy or radicu lopathy, thoracic region, Z01.818 - Encounter for othe r preprocedural ex amination XR lumbar spine 2- 3V Today M25.519 - Pain in unspecified should er, M47.814 - Spon dylosis without my elopathy or radicu lopathy, thoracic region, Z01.818 - Encounter for othe r preprocedural ex amination XR shoulder LT min 2V Today M25.519 - Pain in unspecified should er, M47.814 - Spon dylosis without my elopathy or radicu lopathy, thoracic region, Z01.818 - Encounter for othe r preprocedural ex amination Colonoscopy - GI U se Only Today M25.519 - Pain in unspecified should er, Z80.0 - Family history of malign ant neoplasm of di gestive organs Comprehensive Met. Panel Today M25.519 - Pain in unspecified should er, M47.814 - Spon dylosis without my elopathy or radicu lopathy, thoracic region, Z01.818 - Encounter for othe r preprocedural ex amination Erythrocyte Sedime ntation Rate Today M25.519 - Pain in unspecified should er, M47.814 - Spon dylosis without my elopathy or radicu lopathy, thoracic region, Z01.818 - Encounter for othe r preprocedural ex amination Rheumatoid Factor Today M25.519 - Pain in unspecified should er, M47.814 - Spon dylosis without my elopathy or radicu lopathy, thoracic region, Z01.818 - Encounter for othe r preprocedural ex amination XR cervical spine 2V Today M25.519 - Pain in unspecified should er, M47.814 - Spon dylosis without my elopathy or radicu lopathy, thoracic region, Z01.818 - Encounter for othe r preprocedural ex amination XR shoulder RT 1V Today M25.519 - Pain in unspecified should er, M47.814 - Spon dylosis without my elopathy or radicu lopathy, thoracic region, Z01.818 - Encounter for othe r preprocedural ex amination Referrals Pain Management Re ferral M54.6 - Pain in th oracic spine, Z80. 0 - Family history of malignant neop lasm of digestive organs Medications: New peg 3350-electroly hetal 236-22.74-6.74 -5.86 gram (Golyt carlie) until feca l effluent is cori r; do not exceed a total volume of 2 ,000 mL 240 mL PO Q10M 1 day 4,000 mL 0RF Z12.11 - Encounter for screening for malignant neoplas m of colon Refilled dexlansoprazole (D exilant) 60 mg PO DAILY 90 caps 3RF K21.9 - Gastro-eso phageal reflux dis ease without esoph agitis imipramine HCl 20 mg (2 x 10 mg) PO BEDTIME 30 days 60 tabs 6RF K58.0 - Irritable bowel syndrome wit h diarrhea LABS: Laboratory Tests 05/28/23 09:50 WBC 3.3 L Hgb 13.3 Hct 41.0 MCV 89.1 MCH 28.9 Plt Count 250 ESR 13 Estimated GFR > 60 Total Bilirubin 0.3 AST 17 ALT 14 Alkaline Phosphata se 130 H C-Reactive Protein 0.24 Rheumatoid Factor < 13.0 X-RAY OF THE CERVICAL SPINE 06/05/23 FINDINGS: There are no prevertebral soft tissue or bony abnormalities demonstrated. No compression fractures or subluxations are identified. Alignment is maintained at the atlanto-axial articulation. The disc spaces are preserved. No endplate changes are seen. The prevertebral soft tissues are normal surgical clips anterior to the lower cervical spine. The foramina are patent. XR/XR cervical spine 2V IMPRESSION: Unremarkable examination. X-RAY OF THE RIGHT SHOULDER 06/05/23 FINDINGS: RIGHT SHOULDER: There is a small focus of calcific density adjacent to the greater tuberosity measuring approximately 1 mm, new compared to prior. ACROMIOCLAVICULAR JOINT: Mild arthrosis manifested by minimal marginal osteophytes unchanged. GLENOHUMERAL JOINT: Normal SURROUNDING BONE AND SOFT TISSUES: Unremarkable. LEFT SHOULDER: There is an 8 x 5 mm area of calcific density adjacent to the greater tuberosity which is new compared to prior. This likely reflects calcific tendinosis or calcific tendinitis. Mild arthrosis of the acromioclavicular joint. Glenohumeral joint normal. XR/XR shoulder LT min 2V IMPRESSION: RIGHT SHOULDER: Small focus of calcific density adjacent to the greater tuberosity new compared to prior likely reflects calcific tendinosis or calcific tendinitis. Mild arthrosis of the acromioclavicular joint unchanged. LEFT SHOULDER: 1. Calcific tendinosis/calcific tendinitis of the superior rotator cuff. 2. Mild arthrosis of the acromioclavicular joint. X-RAY OF THE LUMBAR SPINE 06/05/23 FINDINGS: Vertebral bodies normally aligned with normal height. There are multilevel degenerative disc changes overall mild manifested by endplate osteophytes from L1-L2 through L5-S1 unchanged. Probable facet arthrosis bilaterally at L5-S1. Surgical clips incidentally noted in the right upper quadrant and right pelvis. Partially visualized pelvis including sacroiliac joints normal. XR/XR lumbar spine 2-3V IMPRESSION: Mild multilevel spondylosis of the lumbosacral spine unchanged compared with 2016. COLONOSCOPY Scheduled for 09/17/2023 BIOPSY TODAY'S VISIT Indonesian #Kj Alfredo Sees pain mgmt, hasn't heard PT, GI stable. Imipramine and creon, and she is also using simethicone. BUT SHE IS NOT SURE IF SHE IS RECEIVING HER DEXILANT. 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 For now will keep the date to review after her colonoscopy in September. [facility] Medical History (Updated 08/25/23 @ 16:02 by ANDRÉS Oneil) Shoulder pain Swelling of left thumb Abdominal pain Right shoulder pain Mild recurrent major depression Physical exam Pre-op examination Medicare annual wellness visit, initial Polyarthralgia Thoracic spine pain Constipation by delayed colonic transit Family history of colon cancer in father Hyperparathyroidism Vitamin D deficiency History of primary hyperparathyroidism Osteoporosis Migraines Vertigo Surgical History Hx of colonoscopy (~2009) Hx of endoscopy (~2009) Hx of parathyroidectomy Hx of cholecystectomy Family History Father Colon cancer HTN (hypertension) Mother No problems noted. 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 Cognitive needs: No Hearing needs: No Vision needs: Yes Review of Systems Const Denies fatigue, Denies fever(s), Denies night sweats, Denies poor appetite and Denies weight loss Eyes Details: glasses Reports requires corrective lenses ENT Reports Normal hearing present, Denies dental pain, Denies dysphagia, Denies hearing loss, Denies mouth pain, Denies odynophagia, Denies throat swelling, Denies tongue swelling and Reports other (Dentition adequate) Card Reports no additional complaints Resp Reports no additional complaints GI Details: Denies abdominal pain, Denies melena, Denies bloating, Denies hematochezia, Reports constipation, Denies GI cramping, Denies dysphagia, Denies excessive flatus, Denies early satiety, Reports heartburn, Reports diarrhea, Denies nausea, Denies odynophagia, Denies vomiting and Denies hematemesis Musc Reports back pain, Reports myalgias, Reports arthralgias and Reports stiffness Skin/Breast Denies pruritus, Denies lesions, Denies rash and Denies jaundice Neuro Reports Normal hearing present and Denies Abnormal speech present Endo Denies fatigue Aller/Immun Denies throat swelling and Denies tongue swelling Physical Exam Vital Signs: Last Vital Signs Pulse 63 08/07/23 09:59 BP 117/61 08/07/23 09:59 BMI result Body Mass Index 22.6 Const General: cooperative, no acute distress, well developed and well groomed Nutritional Appearance: average body habitus and well nourished Orientation/consciousness: oriented to person, oriented to place and oriented to time Limitations: language barrier HEENT Head: Yes normocephalic and Yes atraumatic Eyes General: appearance normal, both eyes and all related structures Pupils: Equal, round and reactive pupils present Neck Neck: Yes normal visual inspection and Yes no lymphadenopathy Thyroid: Thyroid normal Resp Effort & Inspection: normal respiratory effort and able to speak in complete sentences Auscultation: clear to auscultation bilaterally Cardio Rate: regular rate Rhythm: regular rhythm Heart sounds: Normal, physiologic split S2 sound present Peripheral pulses: radial pulses present and posterior tibial pulses present GI Inspection: No distended and No Abdominal panniculus present Palpation (GI): Soft to palpation, nontender, no guarding, not rigid and No hepatosplenomegaly present Percussion: Yes normal to percussion Auscultation: normal bowel sounds Rectal Exam - Female: deferred Skin General skin exam: no rashes or lesions noted, turgor normal, skin not dry, no jaundice, No spider nevi and no striae Rashes: no rashes Nails: normal Neuro General: oriented to person, oriented to place and oriented to time Cranial nerves: Yes Equal, round and reactive pupils present and Yes Normal hearing present Speech: No Abnormal speech present Extrem General: Yes normal to inspection, No clubbing, No cyanosis and No edema Psych Appearance: grossly normal and well kempt Mental Status: mental status grossly normal Speech and movement: Normal speech and movement present Affect: normal affect Attitude: cooperative Thought process: Normal thought process present and not confabulating Thought content: Normal thought content present Insight: Limited insight present (Psych) Judgement: Limited judgement present (Psych) Results Reviewed Results Reviewed: Laboratory Tests 05/28/23 09:50 WBC 3.3 L Hgb 13.3 Hct 41.0 MCV 89.1 MCH 28.9 Plt Count 250 ESR 13 Estimated GFR > 60 Total Bilirubin 0.3 AST 17 ALT 14 Alkaline Phosphatase 130 H C-Reactive Protein 0.24 Rheumatoid Factor < 13.0 X-RAY OF THE CERVICAL SPINE 06/05/23 FINDINGS: There are no prevertebral soft tissue or bony abnormalities demonstrated. No compression fractures or subluxations are identified. Alignment is maintained at the atlanto-axial articulation. The disc spaces are preserved. No endplate changes are seen. The prevertebral soft tissues are normal surgical clips anterior to the lower cervical spine. The foramina are patent. XR/XR cervical spine 2V IMPRESSION: Unremarkable examination. X-RAY OF THE RIGHT SHOULDER 06/05/23 FINDINGS: RIGHT SHOULDER: There is a small focus of calcific density adjacent to the greater tuberosity measuring approximately 1 mm, new compared to prior. ACROMIOCLAVICULAR JOINT: Mild arthrosis manifested by minimal marginal osteophytes unchanged. GLENOHUMERAL JOINT: Normal SURROUNDING BONE AND SOFT TISSUES: Unremarkable. LEFT SHOULDER: There is an 8 x 5 mm area of calcific density adjacent to the greater tuberosity which is new compared to prior. This likely reflects calcific tendinosis or calcific tendinitis. Mild arthrosis of the acromioclavicular joint. Glenohumeral joint normal. XR/XR shoulder LT min 2V IMPRESSION: RIGHT SHOULDER: Small focus of calcific density adjacent to the greater tuberosity new compared to prior likely reflects calcific tendinosis or calcific tendinitis. Mild arthrosis of the acromioclavicular joint unchanged. LEFT SHOULDER: 1. Calcific tendinosis/calcific tendinitis of the superior rotator cuff. 2. Mild arthrosis of the acromioclavicular joint. X-RAY OF THE LUMBAR SPINE 06/05/23 FINDINGS: Vertebral bodies normally aligned with normal height. There are multilevel degenerative disc changes overall mild manifested by endplate osteophytes from L1-L2 through L5-S1 unchanged. Probable facet arthrosis bilaterally at L5-S1. Surgical clips incidentally noted in the right upper quadrant and right pelvis. Partially visualized pelvis including sacroiliac joints normal. XR/XR lumbar spine 2-3V IMPRESSION: Mild multilevel spondylosis of the lumbosacral spine unchanged compared with 2016. Assessment & Plan Assessment & Plan (1) Irritable bowel syndrome with diarrhea: Comment: Diarrhea dominant process although she will have occasional constipation Code(s): K58.0 - Irritable bowel syndrome with diarrhea (2) GERD (gastroesophageal reflux disease): Code(s): K21.9 - Gastro-esophageal reflux disease without esophagitis Qualifiers: Esophagitis presence: esophagitis presence not specified Qualified Code(s): K21.9 - Gastro-esophageal reflux disease without esophagitis (3) Lumbar spondylosis: Code(s): M47.816 - Spondylosis without myelopathy or radiculopathy, lumbar region (4) Calcific tendinitis of shoulder: Code(s): M75.30 - Calcific tendinitis of unspecified shoulder Plan Indonesian #Kj Alfredo Sees pain mgmt, hasn't heard PT, GI stable. Imipramine and creon, and she is also using simethicone. BUT SHE IS NOT SURE IF SHE IS RECEIVING HER DEXILANT. 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 For now will keep the date to review after her colonoscopy in September. COLONOSCOPY Scheduled for 09/17/2023 BIOPSY Coding Level of Care Code Est Pt Level 4 (35069) Diagnoses Irritable bowel syndrome with diarrhea K58.0 Gastroesophageal reflux disease, unspecified whether esophagitis present K21.9 Esophagitis presence: esophagitis presence not specified Lumbar spondylosis M47.816 Calcific tendinitis of shoulder M75.30
[2023-08-07 09:59] VITALS: BP 117/61; PULSE 63; BMI 22.6
== END 2023-08-07 11:05 | disposition home or self-care (01) ==
PROVIDERS: PCP Internal Medicine; Visit Provider Nurse Practitioner
DX: K58.0 Irritable bowel syndrome with diarrhea (principal); K21.9 Gastro-esophageal reflux disease without esophagitis; M47.816 Spondylosis without myelopathy or radiculopathy, lumbar region; M75.30 Calcific tendinitis of unspecified shoulder
CPT/HCPCS: 99214

== ENCOUNTER → 2023-08-07 09:56 | Outpatient (BNVA) | payer OTHER, SELFPAY | PROVIDERS: PCP Internal Medicine; Visit Provider Nurse Practitioner | DX: K58.0 Irritable bowel syndrome with diarrhea (principal); K21.9 Gastro-esophageal reflux disease without esophagitis; M47.816 Spondylosis without myelopathy or radiculopathy, lumbar region; M75.30 Calcific tendinitis of unspecified shoulder | CPT/HCPCS: 99212 ==

== ENCOUNTER 2023-08-24 08:55 | Outpatient (AMB) | payer MEDICARE, MEDICAID, SELFPAY ==
[2023-08-24 09:05] VITALS: BP 110/70; BMI 22.1
--- NOTE | 2023-08-24 09:05 | A.OFFPC_ITS ---
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 Accompanied by: Self / Same As Patient Allergies alendronate sodium [Fosamax] Allergy (Intermediate, Verified 08/24/23 09:29) low back pain ciprofloxacin [From CIPRO] Allergy (Intermediate, Verified 08/24/23 09:29) SHORTNESS OF BREATH cyclobenzaprine Allergy (Intermediate, Verified 08/24/23 09:29) DIZZY FOGGY , dizziness metronidazole [From FLAGYL] Allergy (Intermediate, Verified 08/24/23 09:29) DISTENDED ABDOMEN, DIFFICULTY BREATHING tramadol [TRAMADOL] Allergy (Intermediate, Verified 08/24/23 09:29) VOMITING Hydrocodone-Acetaminophen Allergy (Intermediate, Uncoded 08/24/23 09:29) dizziness, insomnia Medication List - Last Reconciled 08/24/23 by Cee Stinson MD baclofen 5 mg PO BID PRN dexlansoprazole (Dexilant) 60 mg PO DAILY gabapentin 400 mg PO TID 30 days hydrocortisone 2.5% (Proctosol HC) 1 appl ID BID imipramine HCl 20 mg (2 x 10 mg) PO BEDTIME 30 days lidocaine 5% 1 patch topical DAILY niutav-wuicmnvx-zdetvgp 24,000-76,000 -120,000 unit (Creon) 1 cap PO QID meclizine 25 mg PO DAILY PRN 30 days peg 3350-electrolytes 236-22.74-6.74 -5.86 gram (Golytely) 240 mL PO Q10M 1 day sennosides (senna) 17.2 mg (2 x 8.6 mg) PO BEDTIME PRN 30 days simethicone 180 mg PO QID tizanidine 2 mg PO Q8H PRN Tobacco use date assessed: 08/24/23 Fall risk assessment: No Falls in past year Last assessed Fall Risk: 08/24/23 Dental Screening Dental Screen Date: 08/24/23 Did you have a dental visit in the last 12 months?: Yes Did you have a dental problem in the last 6 months where you did not have access to dental care?: No Was dental information given to patient?: Patient has dentist HPI HPI Comments History of Present Illness Details This is a 68-year-old female that comes for physical exam. Bone density done 2021 and has an appointment for another bone density next week. Mammogram done 2022. Colonoscopy done 2018. Follows with Gastroenterology due to abdominal issues and will have another colonoscopy next month. No chest pain or shortness of breath. Complains of losing weight without trying. [facility] Medical History (Updated 08/24/23 @ 09:51 by Cee Stinson MD) Mild recurrent major depression Physical exam Pre-op examination Medicare annual wellness visit, initial Polyarthralgia Thoracic spine pain Constipation by delayed colonic transit Family history of colon cancer in father Right shoulder pain Hyperparathyroidism Vitamin D deficiency History of primary hyperparathyroidism Osteoporosis Migraines Vertigo Surgical History Hx of colonoscopy (~2009) Hx of endoscopy (~2009) Hx of parathyroidectomy Hx of cholecystectomy Family History Father Colon cancer HTN (hypertension) Mother No problems noted. 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 1. Little interest or pleasure in doing things: not at all 2. Feeling down, depressed, or hopeless: not at all 3. Trouble falling or staying asleep, or sleeping too much: not at all 4. Feeling tired or having little energy: not at all 5. Poor appetite or overeating: not at all 6. Feeling bad about yourself - or that you are a failure or have let yourself or your family down: not at all 7. Trouble concentrating on things, such as reading the newspaper or watching television: not at all 8. Moving or speaking so slowly that other people could have noticed. Or the opposite - being so fidgety or restless that you have been moving around a lot more than usual: not at all 9. Thoughts that you would be better off or of hurting yourself in some way: not at all Total score: 0 Depression Screening Interpretation: Negative Depression Screening Done: Yes 09991 - PHQ-9 Billing: Yes Source: Developed by Drs. Abhijit Vega, Annamarie Rosa, Jr Bourne and colleagues, with an educational tia from [employer]. Thrive Questionnaire Date Thrive assessed: 08/24/23 I am a: Patient What is your living situation today?: I have a steady place to live Within the past 12 months, did the food you bought not last and you didn't have the money to get more?: Never true Within the past 12 months, did you worry whether your food would run out before you got money to buy more?: Never true Do you have trouble paying for medicines?: No Do you have trouble getting transportation to medical appointments?: No Do you have trouble paying your heating and electricity bill?: No Do you have trouble taking care of your child, family member or friend?: No Do you have trouble with day-to-day activities such as bathing, preparing meals, shopping, managing finances, etc.?: No Are you currently unemployed and looking for a job?: No Are you interested in more education?: No Please select the resources that you would like help with: None Currently or been in a relationship where the following occur: no concerns reported THRIVE Score: 0 AUDIT C Alcohol Use Questionnaire (AUDIT-C) 1. How often do you have a drink containing alcohol?: Never Total Score: 0 GREGORY-7 AMB Questionnaire GREGORY-7 Date GREGORY - 7 assessed: 08/24/23 Feeling nervous, anxious, or on edge: 2 = More than half the days Not being able to stop or control worryin = Not at all Worrying too much about different things: 1 = Several days Trouble relaxin = Not at all Being so restless that it is hard to sit still: 0 = Not at all Becoming easily annoyed or irritable: 0 = Not at all Feeling afraid as if something awful might happen: 0 = Not at all Total GREGORY-7 score (0-4 normal; 5-9 mild; 10-14 moderate; 15-21 severe): 3 Source: Developed by Drs. Abhijit Vega, Annamarie Rosa, Jr Bourne and colleagues, with an educational tia from [employer]. GREGORY-7 Assessment Billing GREGORY-7 Assessment Tool: GREGORY-7 Assessment 82841 Review of Systems Const All systems reviewed & are unremarkable except as noted in HPI and below Eyes Reports no additional complaints, Denies change in vision and Denies other visual disturbances Card Denies chest pain at rest, Denies chest pain with activity, Denies edema, Denies irregular heart rhythm, Denies claudication, Denies dyspnea, Denies dyspnea on exertion, Denies orthopnea, Denies paroxysmal nocturnal dyspnea and Denies slow heart rate Resp Denies cough, Denies dyspnea and Denies dyspnea on exertion GI Denies abdominal pain, Denies change in bowel habits, Denies excessive flatus, Denies nausea and Denies vomiting Denies urinary incontinence, Denies urinary hesitancy and Denies urinary urgency Musc Denies abnormal gait, Denies atrophy, Denies deformity and Denies limited range of motion Skin/Breast Denies bleeding lesions, Denies changing lesions and Denies rash Neuro Denies abnormal gait and Denies lack of coordination Physical exam (Primary Care) Vital Signs: Last Vital Signs BP 110/70 08/24/23 09:05 BMI result Body Mass Index 22.1 Tobacco/Smoking Status: Tobacco use Status Tobacco use date assessed 08/24/23 08/24/23 09:15 Patient Tobacco Use Status Former Tobacco user 08/24/23 09:10 Tobacco use type Cigarette 08/24/23 09:10 e-Cigarette/Vaping Use Never Used 08/24/23 09:10 PHQ-9: PHQ-9 Score PHQ-9: Total score 0 08/24/23 09:36 Depression Screening Interpretation: Negative Thrive Assessment: Date of Thrive Assessment Date Thrive assessed 08/24/23 08/24/23 09:15 Currently or been in a relationship where the following occur: no concerns reported Const Orientation/consciousness: patient oriented x3 HENMT Head: Yes normal to inspection, Yes normocephalic and Yes atraumatic Ears: external ears normal Eyes General: appearance normal, both eyes and all related structures Eyelids: Yes eyelids normal Conjunctivae: conjunctivae normal Neck Neck: Yes normal visual inspection and Yes supple Resp Effort & Inspection: normal respiratory effort Auscultation: clear to auscultation bilaterally Cardio Jugular venous distension: no JVD Rate: regular rate Rhythm: regular rhythm Heart sounds: S1 normal heart sound present and S2 normal heart sound present GI Inspection: Yes normal to inspection Palpation (GI): Soft to palpation and nontender Auscultation: normal bowel sounds Skin General skin exam: no rashes or lesions noted Neuro General: patient oriented x3 and no focal motor deficits Extrem General: Yes full ROM Psych Appearance: grossly normal Assessment and Plan Assessment & Plan (1) Physical exam: Code(s): Z00.00 - Encounter for general adult medical examination without abnormal findings Plan: Repeat in a year. Orders: Orders Thyroid Stimulating Hormone Today R63.4 - Abnormal weight loss Complete Blood Count Auto Diff Today D72.819 - Decreased white blood cell count, unspecified, R63.4 - Abnormal weight loss Vitamin D 25-OH Total Today E55.9 - Vitamin D deficiency, unspecified Comprehensive [place]. Panel Fast Today Z00.00 - Encounter for general adult medical examination without abnormal findings Lipid Panel Today E78.5 - Hyperlipidemia, unspecified, Z00.00 - Encounter for general adult medical examination without abnormal findings Coding Level of Care Code Est Pt Prev Care >65y(33516) Diagnoses Physical exam Z00.00 Additional Codes GREGORY-7 Assessment Billing - GREGORY-7 Assessment Tool: GREGORY-7 Assessment 12139 ([id number]) Time Spent (min) 32
== END 2023-08-24 09:45 | disposition home or self-care (01) ==
PROVIDERS: PCP Internal Medicine; Visit Provider Internal Medicine
DX: Z00.00 Encounter for general adult medical examination without abnormal findings (principal); R63.4 Abnormal weight loss
CPT/HCPCS: 99397

== ENCOUNTER 2023-08-27 08:29 | Outpatient (REF) | payer OTHER, SELFPAY ==
[2023-08-27 08:57] LABS: MANUAL DIFF FLAG NO
[2023-08-27 09:29] LABS: Basophils Percent Auto 0.8 % (0-2); Eosinophils Absolute Auto 0.1 X10*3/uL (0.0-0.4); Eosinophils Percent Auto 1.3 % (0-4); Hematocrit 39.2 % (37.0-47.0); Hemoglobin 12.8 g/dl (12.0-16.0); Imm Gran Abs Auto 0.01 X10*3/uL (0.00-0.03); Imm Gran Pct Auto 0.3 % (0.0-0.4); Lymphocytes Absolute Auto 2.2 X10*3/uL (1.2-4.9); Lymphocytes Percent Auto 54.6 % (20-40); Mean Corpuscular HGB Conc 32.7 g/dl (31.0-35.0); Mean Corpuscular Hemoglobin 28.8 pg (27.0-33.0); Mean Corpuscular Volume 88.3 fL (80.0-98.0); Mean Platelet Volume 9.8 fL (9.4-12.3); Monocytes Absolute Auto 0.3 X10*3/uL (0.1-1.2); Monocytes Percent Auto 8.6 % (2-11); Neutrophils Absolute Auto 1.4 x10*3/uL (2.0-8.3); Neutrophils Percent Auto 34.4 % (45-73); Platelet Count 249 X10*3/uL (160-400); Red Blood Count 4.44 X10*6/uL (4.20-5.50); Red Cell Distribution Width 13.7 % (11.0-16.0); White Blood Count 3.9 X10*3/uL (4.8-10.8)
[2023-08-27 10:19] LABS: Alanine Aminotransferase 14 U/L (0-31); Albumin Level 3.8 g/dL (3.5-5.0); Alkaline Phosphatase 118 U/L (39-117); Anion Gap 8 (12-20); Aspartate Amino Transferase 19 U/L (5-31); Bilirubin Total 0.3 mg/dL (0.0-1.0); Blood Urea Nitrogen 12 mg/dL (9-16); Carbon Dioxide 30 mmol/L (22-29); Chloride 110 mmol/L (96-108); Cholesterol 151 mg/dL (<200); Estimated Glomerular Filt Rate > 60; Glucose Fasting 79 mg/dL (60-99); HDL Cholesterol 42 mg/dL (>40); LDL Cholesterol Calculated 84 mg/dL (<100); Sodium 144 mmol/L (135-145); Total Protein 6.8 g/dL (6.5-8.0); Triglycerides 129 mg/dL (<150)
[2023-08-27 10:23] LABS: Thyroid Stimulating Hormone 1.14 uIU/mL (0.32-4.0); Vitamin D 25-OH Total 40.9 ng/mL (>30)
== END 2023-08-27 08:30 | disposition home or self-care (01) ==
LOC: HO.LAB 08:29
PROVIDERS: PCP Internal Medicine; Visit Provider Internal Medicine
DX: Z00.00 Encounter for general adult medical examination without abnormal findings (principal); E55.9 Vitamin D deficiency, unspecified; R63.4 Abnormal weight loss; D72.819 Decreased white blood cell count, unspecified; E78.5 Hyperlipidemia, unspecified
CPT/HCPCS: 36415; 80053; 80061; 82306; 84443; 85025

== ENCOUNTER 2023-09-08 08:01 | Outpatient (REF) | payer OTHER, SELFPAY ==
--- NOTE | ~2023-09-08 | MM_ITS ---
EXAMINATION: BONE DENSITOMETRY CLINICAL INDICATION: Age-related osteoporosis without current pathological fracture. COMPARISON: Previous BD dated 08/01/2021 and baseline BD dated 03/31/2007, spine and left hip; 11/23/2014, forearm radius 33%. TECHNIQUE: Using a Evercam DXA System (software version: 13.1) manufactured by [employer], dual-energy x-ray absorptiometry was performed of the lumbar spine, left hip and left forearm radius 33%. The images are of good technical quality. Summary results are attached. FINDINGS: LEFT FEMUR, NECK: Current: BMD 0.809 g/cm2, Z-score 0.1, T-score -1.6, osteopenia. Prior: BMD 0.815 g/cm2. Baseline: BMD 0.895 g/cm2. LEFT FEMUR, TOTAL: Current: BMD 0.855 g/cm2, Z-score 0.3, T-score -1.2, osteopenia, 3.0% decrease from previous, 12.9% decrease from baseline (<5% change is not significant). Prior: BMD 0.881 g/cm2. Baseline: BMD 0.982 g/cm2. AP SPINE L1-L3 (excluding L4): The data of L1-L4 has been changed to exclude the L4 vertebral body, because degenerative sclerosis at this level may cause overestimation of lumbar spine density. Current: BMD 0.977 g/cm2, Z-score 0.3, T-score -1.6, osteopenia, 3.1% decrease from previous, 13.1% decrease from baseline (<5% change is not significant). Prior: BMD 1.008 g/cm2. Baseline: BMD 1.124 g/cm2. LEFT FOREARM RADIUS 33%: BMD 0.658 g/cm2, Z-score -0.9, T-score -2.5, osteoporosis, 1.6% decrease from previous, 9.4% decrease from baseline (<5% change is not significant). Prior: BMD 0.669 g/cm2. Baseline: BMD 0.726 g/cm2. IDENTIFIED RISK FACTORS: Menopause, hyperparathyroidism, low calcium intake, osteoporosis, rheumatoid arthritis. HISTORY OF FRACTURE: None listed. MEDICATIONS: Calcium. MM/XR DEXA appendicular skeleton IMPRESSION: 1. DIAGNOSIS: Osteoporosis based on the lowest T-score value of -2.5 in the forearm radius 33% applying World Health Organization criteria. 2. 10-YEAR FRACTURE RISK PREDICTION, FRAX: According to the guidelines, FRAX calculation should only be performed on patients in the osteopenia bone density category. Therefore, FRAX was not performed on this patient. 3. Treatment Recommendations: NOF guidelines recommend consideration for treatment in postmenopausal women and men age 50 and older presenting with the following: -A hip or vertebral (clinical or morphometric) fracture. -T-score less than or equal to -2.5 at the femoral neck or spine after appropriate evaluation to exclude secondary causes. -Low bone mass at the hip or spine and a 10-year fracture probability by FRAX of greater than or equal to 3% for hip fracture or greater than or equal to 20% for major osteoporotic fracture based on the [place] adapted WHO algorithm. 4. Other Recommendations: All treatment decisions require clinical judgment and consideration of individual patient factors, including patient preferences, comorbidities, previous drug use, risk factors not captured in the FRAX model (e.g. frailty, falls, vitamin D deficiency, increased bone turnover, interval significant decline in bone density) and possible under or overestimation of fracture risk by FRAX. Additional medical evaluation for secondary cause of low bone mineral density may be appropriate. FUTURE SCAN RECOMMENDATION: People with diagnosed cases of osteoporosis or at high risk for fracture should have regular bone mineral density tests. For patients eligible for Medicare, routine testing is allowed once every 2 years. The testing frequency can be increased to one year for patients who have rapidly progressing disease, those who are receiving or discontinuing medical therapy to restore bone mass, or have additional risk factors.
== END 2023-09-08 08:02 | disposition home or self-care (01) ==
LOC: HO.MAMMO 08:01
PROVIDERS: PCP Internal Medicine; Visit Provider Internal Medicine Endocrinology, Diabetes & Metabolism
DX: Z12.31 Encounter for screening mammogram for malignant neoplasm of breast (principal); Z13.820 Encounter for screening for osteoporosis; Z78.0 Asymptomatic menopausal state; M81.0 Age-related osteoporosis without current pathological fracture
CPT/HCPCS: 77063; 77067; 77081

== ENCOUNTER → 2023-09-08 08:15 | Outpatient (BNV) | payer OTHER, SELFPAY | PROVIDERS: PCP Internal Medicine; Visit Provider Radiology Diagnostic Radiology | DX: Z12.31 Encounter for screening mammogram for malignant neoplasm of breast (principal) | CPT/HCPCS: 77063; 77067 ==

== ENCOUNTER 2023-10-19 09:51 | Outpatient (AMB) | payer OTHER, SELFPAY ==
--- NOTE | 2023-10-19 09:56 | MHC.OFFVIS ---
Vital Signs 10/19/23 09:57 Height 5 ft 3 in Weight 128 lb 4.944 oz BMI 22.7 BP 100/58 L Blood Pressure Location Lt brachial Position Sitting Pulse 76 Pulse Source Pulse Oximeter Intake Visit Reasons: Osteoporosis/CONFIRMED Intake Note: Patient presents today for Osteoporosis follow up, last seen by Dr. Brock on 08/21/2021. 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 Drier And Evaporator Operator Language: Pan [place] Name: Smooth Information Interpreted: non-clinical & clinical Accompanied by: Self / Same As Patient Allergies alendronate sodium [Fosamax] Allergy (Intermediate, Verified 10/19/23 10:04) low back pain ciprofloxacin [From CIPRO] Allergy (Intermediate, Verified 10/19/23 10:04) SHORTNESS OF BREATH cyclobenzaprine Allergy (Intermediate, Verified 10/19/23 10:04) DIZZY FOGGY , dizziness metronidazole [From FLAGYL] Allergy (Intermediate, Verified 10/19/23 10:04) DISTENDED ABDOMEN, DIFFICULTY BREATHING tramadol [TRAMADOL] Allergy (Intermediate, Verified 10/19/23 10:04) VOMITING Hydrocodone-Acetaminophen Allergy (Intermediate, Uncoded 10/19/23 10:04) dizziness, insomnia Medication List - Last Reconciled 10/19/23 by Abhijit Bueno MD baclofen 5 mg PO BID PRN dexlansoprazole (Dexilant) 60 mg PO DAILY gabapentin 400 mg PO TID 30 days hydrocortisone 2.5% (Proctosol HC) 1 appl SC BID imipramine HCl 20 mg (2 x 10 mg) PO BEDTIME 30 days lidocaine 5% 1 patch topical DAILY pphjze-ysgcdlzq-snvmjuh 24,000-76,000 -120,000 unit (Creon) 1 cap PO QID meclizine 25 mg PO DAILY PRN 30 days peg 3350-electrolytes 236-22.74-6.74 -5.86 gram (Golytely) 240 mL PO Q10M 1 day sennosides (senna) 17.2 mg (2 x 8.6 mg) PO BEDTIME PRN 30 days simethicone 180 mg PO QID tizanidine 2 mg PO Q8H PRN HPI Comments Details: 68 YO Female with PMHx Hyperparathyroidism s/p parathyroidectomy and also Osteoporosis who is seen in F/U. Patient last saw Dr. Brock 08/21/2021 She was initially diagnosed with primary hyperparathyroidism in 2001 at [facility]. She underwent a surgical parathyroidectomy 11/22/2003, and reports that she had 3 glands resected. She was found to have elevated alk phos levels, and underwent a bone scan in 2006, with no evidence of pagets disease. She has been treated in the past with both Actonel and Fosamax, it is unclear the full duration. She did not tolerate Fosamax well due to back pain. No history of pathologic fracture or ONJ. Has 1 servings of dietary calcium per day in the form of cheese. Takes Calcium supplement 1200 mg daily in divided doses. Does not take Vitamin D. Uses PPI daily. Denies ever using anticoagulant, antiepileptic or glucocorticoid medication. Does not do any scheduled exercise. 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 Menses were always regular. . She breastfed for 6 months. Menopause was age 55. She did not use HRT. Denies history of Kidney stones. Denies family history of Osteoporosis or hip fracture. UTD on dental cleanings and sees dentist every 6 months. She is going to be having 3-4 teeth pulled in the coming months. DXA: 08/01/2021 FINDINGS: AP SPINE L1-L4: Current: BMD 1.062 g/cm2, Z-score 0.5, T-score -1.0, normal, 6.2% decrease from previous, 10.2% decrease from baseline (<5% change is not significant). Prior: BMD 1.132 g/cm2. Baseline: BMD 1.183 g/cm2. LEFT FEMUR, NECK: Current: BMD 0.815 g/cm2, Z-score -0.2, T-score -1.6, osteopenia. Prior: BMD 0.817 g/cm2. Baseline: BMD 0.895 g/cm2. LEFT FEMUR, TOTAL: Current: BMD 0.881 g/cm2, Z-score 0.2, T-score -1.0, normal, 3.9% decrease from previous, 10.3% decrease from baseline (<5% change is not significant). Prior: BMD 0.917 g/cm2. Baseline: BMD 0.982 g/cm2. LEFT FOREARM RADIUS 33%: BMD 0.669 g/cm2, Z-score -0.9, T-score -2.4, osteopenia, 0.5% increase from previous, 7.9% decrease from baseline (<5% change is not significant). Prior: BMD 0.666 g/cm2. Baseline 11/23/2014: BMD 0.726 g/cm2. Labs: Laboratory Tests 05/30/21 05/30/21 05/30/21 10:09 10:09 10:09 Creatinine 0.74 Estimated GFR > 60 Alkaline Phosphatase 125 H Albumin 3.9 PEP Interpretation SEE NOTE N-Telopeptide X-linked 25-OH Vitamin D Total 44.3 TSH 0.56 Free T4 0.90 PTH Intact 43 Calcium (PTH Intact) 8.9 06/27/21 11:18 Creatinine Estimated GFR Alkaline Phosphatase Albumin PEP Interpretation N-Telopeptide X-linked 39 25-OH Vitamin D Total TSH Free T4 PTH Intact Calcium (PTH Intact) [facility] Medical History (Updated 09/15/23 @ 15:04 by Ana Bosch RN) Shoulder pain Family history of colon cancer in father Constipation by delayed colonic transit Swelling of left thumb Mild recurrent major depression Abdominal pain Right shoulder pain Hyperparathyroidism Vitamin D deficiency Medicare annual wellness visit, initial Polyarthralgia Thoracic spine pain History of primary hyperparathyroidism Osteoporosis Migraines Vertigo Surgical History Hx of colonoscopy (~2009) Hx of endoscopy (~2009) Hx of parathyroidectomy Hx of cholecystectomy Family History Father Colon cancer HTN (hypertension) Mother No problems noted. 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 She now has low bone mass in her spine and hip but borderline osteoporosis in her forearm. Although somewhat controversial, would not treat pharmacologically at the present time but will continue calcium and vitamin-D supplementation. Patient returned to the care of her primary care provider who can we check a bone density about 2 years time. If a bone density declines further, she returned back to endocrinology for discussion pharmacologic options Coding Level of Care Code Est Pt Level 3 (53448) Diagnoses Osteoporosis M81.0
[2023-10-19 09:57] VITALS: BP 100/58; PULSE 76; BMI 22.7
== END 2023-10-19 10:14 | disposition home or self-care (01) ==
PROVIDERS: PCP Internal Medicine; Visit Provider Internal Medicine Endocrinology, Diabetes & Metabolism
DX: M81.0 Age-related osteoporosis without current pathological fracture (principal)
CPT/HCPCS: 99213

== ENCOUNTER → 2023-10-19 09:51 | Outpatient (BNVA) | payer OTHER, SELFPAY | PROVIDERS: PCP Internal Medicine; Visit Provider Internal Medicine Endocrinology, Diabetes & Metabolism | DX: M81.0 Age-related osteoporosis without current pathological fracture (principal) | CPT/HCPCS: 99212 ==

== ENCOUNTER 2024-02-11 09:51 | Outpatient (REF) | payer OTHER, SELFPAY ==
[2024-02-11 10:36] LABS: Appearance Urine Turbid; Color Urine Yellow; Glucose Urine UA Negative (Negative); Leukocyte Esterase Urine Large (3+) (Negative); Nitrite Urine Negative (Negative); PH 5.5 (5.0-9.0); Specific Gravity - Urine 1.015 (1.005-1.025); UMIC TRIGGER UACC YES; Urine Blood Large (3+) (Negative); Urine Ketones Trace mg/dL (Negative); Urine Protein Trace mg/dL (Neg-Trace)
[2024-02-11 10:39] LABS: Bacteria Urine None Seen (None Seen); Hyaline Casts Urine 0-2 /LPF (0-2); RBC Urine >20 /HPF (0-2); Squamous Epithelial Cell Urine 0-2 /HPF (0-2); UACC Culture Trigger YES; WBC Urine >50 /HPF (0-5)
== END 2024-02-11 09:52 | disposition home or self-care (01) ==
LOC: HO.LAB 09:51
PROVIDERS: PCP Internal Medicine; Visit Provider Internal Medicine
DX: R30.0 Dysuria (principal)
CPT/HCPCS: 81001; 87086; 87088; 87186

== ENCOUNTER 2024-02-24 08:04 | Day surgery (SDC) | payer OTHER, SELFPAY ==
--- NOTE | 2024-02-23 09:35 | P.CONAN_ITS ---
Documented by User: Fadumo Garza NP 02/23/24 09:37 HPI - Anesthesia Eval Consult details Narrative: 68yo F for Colonoscopy PMFSH Active Problems Active Problems: All Active Problems Calcific tendinitis of shoulder (Acute) Leukopenia (Acute) Weight loss (Acute) Lumbar spondylosis (Acute) Liver lesion (Acute) Right rotator cuff tendinitis (Acute) Thoracic spondylosis (Acute) Family history of colon cancer in father (Acute) Abdominal bloating (Acute) Irritable bowel syndrome with diarrhea (Acute) Black stools (Acute) Hemorrhoids (Acute) GERD (gastroesophageal reflux disease) (Acute) Physical exam (Acute) Vitamin D deficiency (Acute) History of primary hyperparathyroidism (Acute) Osteoporosis (Acute) Migraines (Acute) Vertigo (Acute) Past Medical History Medical History Heart abnormality Shoulder pain Family history of colon cancer in father Constipation by delayed colonic transit Swelling of left thumb Mild recurrent major depression Abdominal pain Right shoulder pain Hyperparathyroidism Vitamin D deficiency Medicare annual wellness visit, initial Polyarthralgia Thoracic spine pain History of primary hyperparathyroidism Osteoporosis Migraines Vertigo Family History Family History Father Colon cancer HTN (hypertension) Mother No problems noted. Family/Other Diabetes Surgical History Surgical History Hx of colonoscopy (~2009) Hx of endoscopy (~2009) Hx of parathyroidectomy Hx of cholecystectomy Social History Social History Household Members: Spouse and Children Housing: Apartment Alcohol intake: never Patient Tobacco Use Status: Former Tobacco user Tobacco use type: Cigarette e-Cigarette/Vaping Use: Never Used Second Hand Smoke Exposure: No Use of substances other than those prescribed or required for medical reasons: No Are you DNR?: No Advance Directives: No Advance Directives Information Provided: Yes Advance Directives on File: No Recently lost weight without trying: Yes How much weight loss: 14-23 pounds Nutrition Risks: No Nutritional Risk service: No Current occupational status: disabled 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 Cognitive needs: No Hearing needs: No Vision needs: Yes Meds Allergies Allergy/AdvReac Type Severity Reaction Status Date / Time alendronate sodium [Fosamax] Allergy Intermediate low back Verified 10/19/23 10:04 pain ciprofloxacin [From CIPRO] Allergy Intermediate SHORTNESS Verified 10/19/23 10: 04 OF BREATH cyclobenzaprine Allergy Intermediate DIZZY Verified 10/19/23 10:04 FOGGY , dizziness metronidazole [From FLAGYL] Allergy Intermediate DISTENDED Verified 10/19/23 10 :04 ABDOMEN, DIFFICULTY BREATHING tramadol [TRAMADOL] Allergy Intermediate VOMITING Verified 10/19/23 10:04 Hydrocodone-Acetaminophen Allergy Intermediate dizziness, Uncoded 10/19/23 10:04 insomnia Home Medications ?Medication ?Instructions ?Recorded ?Confirmed ?Last Taken ?Type tizanidine 2 mg capsule 2 mg PO Q8H PRN Muscle Spasm 01/22/23 09/15/23 Unknown History Assessment and Plan Assessment Anesthesia Assessment: Chart Reviewed Documented by User: Nayla Cheney MD 02/24/24 08:48 PMFSH Past Medical History Medical History Heart abnormality Shoulder pain Family history of colon cancer in father Constipation by delayed colonic transit Swelling of left thumb Mild recurrent major depression Abdominal pain Right shoulder pain Hyperparathyroidism Vitamin D deficiency Medicare annual wellness visit, initial Polyarthralgia Thoracic spine pain History of primary hyperparathyroidism Osteoporosis Migraines Vertigo Family History Family History Father Colon cancer HTN (hypertension) Mother No problems noted. Family/Other Diabetes Family history of problems with anesthesia: No Surgical History Surgical History Hx of colonoscopy (~2009) Hx of endoscopy (~2009) Hx of parathyroidectomy Hx of cholecystectomy History of Problems with Anesthesia: No Social History Social History Household Members: Spouse and Children Housing: Apartment Alcohol intake: never Patient Tobacco Use Status: Former Tobacco user Tobacco use type: Cigarette e-Cigarette/Vaping Use: Never Used Second Hand Smoke Exposure: No Use of substances other than those prescribed or required for medical reasons: No Are you DNR?: No Advance Directives: No Advance Directives Information Provided: Yes Advance Directives on File: No Recently lost weight without trying: Yes How much weight loss: 14-23 pounds Nutrition Risks: No Nutritional Risk service: No Current occupational status: disabled 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 Cognitive needs: No Hearing needs: No Vision needs: Yes Meds Allergies Allergy/AdvReac Type Severity Reaction Status Date / Time alendronate sodium [Fosamax] Allergy Intermediate low back Verified 10/19/23 10:04 pain ciprofloxacin [From CIPRO] Allergy Intermediate SHORTNESS Verified 10/19/23 10:04 OF BREATH cyclobenzaprine Allergy Intermediate DIZZY Verified 10/19/23 10:04 FOGGY , dizziness metronidazole [From FLAGYL] Allergy Intermediate DISTENDED Verified 10/19/23 10:04 ABDOMEN, DIFFICULTY BREATHING tramadol [TRAMADOL] Allergy Intermediate VOMITING Verified 10/19/23 10:04 Hydrocodone-Acetaminophen Allergy Intermediate dizziness, Uncoded 10/19/23 10:04 insomnia Home Medications ?Medication ?Instructions ?Recorded ?Confirmed ?Last Taken ?Type tizanidine 2 mg capsule 2 mg PO Q8H PRN Muscle Spasm 01/22/23 09/15/23 Unknown History Exam Airway Mallampati Class: II TM Dist: >3cm Neck ROM: Full Heart: rrr Assessment and Plan Assessment Anesthesia Assessment: Anesthesia Plan Discussed Final Anesthetic Review Family History of Problems with Anesthesia: No History of Problems with Anesthesia: No NPO: Yes ASA Class: II Final Preanesthetic Review: No Changes in Pt Med Stat, Meds/Allgs Chart Reviewed, Consent Obtained/Reviewed and Anes Risks/Benef Reviewed Patient Risk: Low Anesthetic Plan Anesthetic Plan: MAC: Disposition: Standard PACU
[2024-02-24 08:15] VITALS: BP 138/68; PULSE 67; RESP 16; TEMP 36.7; O2SAT 100
[2024-02-24 08:33] VITALS: BMI 22.4
--- NOTE | 2024-02-24 08:42 | MHC.SHP ---
Pre-Procedural Eval Section A - 24 Hr Update-Section A only Date of Service: 02/24/24 Section B - Complete if H&P > 30 days Chief Complaint: Abdominal distension (gaseous) Relevant Family History (Specify if Yes): No Relevant Social History: None Present Medications: see Short Stay Collaborative assessment Medical History: Significant History (Shoulder pain Family history of colon cancer in father Constipation by delayed colonic transit Swelling of left thumb Mild recurrent major depression Abdominal pain Right shoulder pain Hyperparathyroidism Vitamin D deficiency Medicare annual wellness visit, initial Polyarthralgia Thoracic spine pain) History of Previous Operations: Relevant previous surgery/procedure and date(s) ( Hx of colonoscopy (~2009) Hx of endoscopy (~2009) Hx of parathyroidectomy Hx of cholecystectomy) Allergies: Allergies Allergy/AdvReac Type Severity Reaction Status Date / Time alendronate sodium [Fosamax] Allergy Intermediate low back Verified 10/19/23 10:04 pain ciprofloxacin [From CIPRO] Allergy Intermediate SHORTNESS Verified 10/19/23 10:04 OF BREATH cyclobenzaprine Allergy Intermediate DIZZY Verified 10/19/23 10:04 FOGGY , dizziness metronidazole [From FLAGYL] Allergy Intermediate DISTENDED Verified 10/19/23 10:04 ABDOMEN, DIFFICULTY BREATHING tramadol [TRAMADOL] Allergy Intermediate VOMITING Verified 10/19/23 10:04 Hydrocodone-Acetaminophen Allergy Intermediate dizziness, Uncoded 10/19/23 10:04 insomnia Review of Systems Sugical H&P ROS: Negative: Constitution, Cardiovascular, Respiratory, Neurological, Psychiatric, Hem-Onc, Allergic/Immunologic, Gastrointestinal, Genitourinary, Musculoskeletal, Integumentary, Endocrine and Eyes/Ears/Nose/Throat Exam Surgical H&P Exam: Normal: HEENT, Normal: Heart, Normal: Lungs, Normal: Extremities, Normal: Abdomen, Normal: Skin and Normal: Neurological Plan Diagnosis/Plan: Unchanged I have reviewed the history and physical and performed a pertinent physical examination on my patient. No changes have occurred unless specified. Time Spent With Patient Time: Total time managing care of this patient today ____ minutes.
[2024-02-24] MEDS: Lactated Ringers 1,000 ML 100 ML IVCONT (08:56)
--- NOTE | 2024-02-24 09:07 | P.OPN-COLO_ITS ---
Colonoscopy Operative Note Operative Note Date of Service: 02/24/24 Narrative: Operative Information Procedure Description: Colonoscopy Indication: screening Anesthesia: MAC COLONOSCOPY Instrument: Olympus variable stiffness pediatric scope 190L Colonoscopy Monitoring: Vital signs and clinical assessment, continuous EKG monitoring, Pulse oximetry, Carbon Dioxide monitoring and blood pressure monitoring were done throughout the procedure. Colon withdrawal time was 11 minutes. Procedure: The patient was placed in the left lateral decubitis position and pre-procedure medications were administered. After a digital rectal examination of the ano-rectum, the video colonoscope was inserted into the rectum and advanced through the colon to the cecum/TI. The colonoscope was slowly withdrawn in a retrograde panoramic fashion and the colon mucosa was carefully examined including a retroflexed view of the rectum. Findings and interventions are described below. Procedure Difficulty: easy Findings: Terminal Ileum-normal Cecum:normal right sided retroflexion- normal Ascending Colon: normal Transverse Colon -normal Descending Colon: 3-4 mm sessile polyp removed with cold forceps Sigmoid Colon: moderate severe diverticulosis with luminal narrowing and mucosal hypertrophy Rectum: Retroflexion with small internal hemorrhoids seen, grade I Anorectum - normal Intervention: cold forceps Colon preparation: [place] Bowel Preparation Scale Right colon; 2 Transverse colon: 3 Left colon; 2 (0 = Unprepared colon segment with mucosa not seen due to solid stool that cannot be cleared. 1 = Portion of mucosa of the colon segment seen, but other areas of the colon segment not well seen due to staining, residual stool and/or opaque liquid. 2 = Minor amount of residual staining, small fragments of stool and/or opaque liquid, but mucosa of colon segment seen well. 3 = Entire mucosa of colon segment seen well with no residual staining, small fragments of stool or opaque liquid) Impression and Post Procedure Diagnosis: diverticulosis internal hemorrhoids Plan: High fiber diet leaflet Avoid straining at stool, epsom salts and sitz bath, anusol supps or cream Repeat Colonoscopy in 5 years or earlier if clinically indicated Above findings were reviewed with the patient and relevant handouts were provided if indicated.
[2024-02-24 09:48] VITALS: BP 98/54; PULSE 67; RESP 18; TEMP 36.6; O2SAT 98
[2024-02-24 10:15] VITALS: BP 123/74; PULSE 59; RESP 18; TEMP 36.1; O2SAT 99
== END 2024-02-24 10:50 | disposition home or self-care (01) ==
PROVIDERS: PCP Internal Medicine; Visit Provider Internal Medicine Gastroenterology
PROC: 0DJD8ZZ Inspection of Lower Intestinal Tract, Via Natural or Artificial Opening Endoscopic (ICD-10-PCS; CPT 45378; principal; 2024-02-24 09:20)
DX: Z12.11 Encounter for screening for malignant neoplasm of colon (principal); Z80.0 Family history of malignant neoplasm of digestive organs; K63.5 Polyp of colon; K57.30 Diverticulosis of large intestine without perforation or abscess without bleeding; K64.0 First degree hemorrhoids; R14.0 Abdominal distension (gaseous); K59.01 Slow transit constipation; M81.0 Age-related osteoporosis without current pathological fracture; E55.9 Vitamin D deficiency, unspecified; F33.0 Major depressive disorder, recurrent, mild; Z79.899 Other long term (current) drug therapy; Z88.1 Allergy status to other antibiotic agents; Z88.8 Allergy status to other drugs, medicaments and biological substances; Z88.5 Allergy status to narcotic agent; Z87.891 Personal history of nicotine dependence
CPT/HCPCS: 45380; 88305; J2704

== ENCOUNTER → 2024-02-24 08:04 | Outpatient (BNV) | payer OTHER, SELFPAY | PROVIDERS: PCP Internal Medicine; Visit Provider Internal Medicine Gastroenterology | DX: Z12.11 Encounter for screening for malignant neoplasm of colon (principal); K63.5 Polyp of colon; K57.30 Diverticulosis of large intestine without perforation or abscess without bleeding; K64.0 First degree hemorrhoids | CPT/HCPCS: 45380 ==

== ENCOUNTER 2024-03-31 15:56 | Outpatient (AMB) | payer OTHER, SELFPAY ==
--- NOTE | 2024-03-31 15:59 | A.OFFVIS_ITS ---
Vital Signs 03/31/24 16:02 Height 5 ft 4 in Weight 132 lb 4.438 oz BMI 22.7 BP 152/67 H Blood Pressure Location Lt brachial Position Sitting Pulse 64 Intake Visit Reasons: S/P [place]; Dr. Ward Intake Note: Gaviota presents in the office as a follow up colonoscopy. CC: She states that she is here today for results to her colonoscopy. She gets stomach pains sometimes when she eats certain foods but she states that it does not occur often. Commission Auditor Required: Yes Commission Auditor Name: [id number] Shireen Allergies alendronate sodium [Fosamax] Allergy (Intermediate, Verified 03/31/24 16:02) low back pain ciprofloxacin [From CIPRO] Allergy (Intermediate, Verified 03/31/24 16:02) SHORTNESS OF BREATH cyclobenzaprine Allergy (Intermediate, Verified 03/31/24 16:02) DIZZY FOGGY , dizziness metronidazole [From FLAGYL] Allergy (Intermediate, Verified 03/31/24 16:02) DISTENDED ABDOMEN, DIFFICULTY BREATHING tramadol [TRAMADOL] Allergy (Intermediate, Verified 03/31/24 16:02) VOMITING Hydrocodone-Acetaminophen Allergy (Intermediate, Uncoded 03/31/24 16:02) dizziness, insomnia HPI HPI S/P [place]; Dr. Ward: Details: Assessment & Plan (1) Irritable bowel syndrome with diarrhea: Comment: Diarrhea dominant process although she will have occasional constipation Code(s): K58.0 - Irritable bowel syndrome with diarrhea (2) GERD (gastroesophageal reflux disease): Code(s): K21.9 - Gastro-esophageal reflux disease without esophagitis Qualifiers: Esophagitis presence: esophagitis presence not specified Qualified Code(s): K21.9 - Gastro-esophageal reflux disease without esophagitis (3) Lumbar spondylosis: Code(s): M47.816 - Spondylosis without myelopathy or radiculopathy, lumbar region (4) Calcific tendinitis of shoulder: Code(s): M75.30 - Calcific tendinitis of unspecified shoulder Plan [place] [employer] Sees pain mgmt, hasn't heard PT, GI stable. Imipramine and creon, and she is also using simethicone. BUT SHE IS NOT SURE IF SHE IS RECEIVING HER DEXILANT. 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 For now will keep the date to review after her colonoscopy in September. COLONOSCOPY 02/24/24 Findings: Terminal Ileum-normal Cecum:normal right sided retroflexion- normal Ascending Colon: normal Transverse Colon -normal Descending Colon: 3-4 mm sessile polyp removed with cold forceps Sigmoid Colon: moderate severe diverticulosis with luminal narrowing and mucosal hypertrophy Rectum: Retroflexion with small internal hemorrhoids seen, grade I Anorectum - normal Intervention: cold forceps Impression and Post Procedure Diagnosis: diverticulosis internal hemorrhoids Plan: High fiber diet leaflet Avoid straining at stool, epsom salts and sitz bath, anusol supps or cream Repeat Colonoscopy in 5 years or earlier if clinically indicated BIOPSY Received: 02/24/24 Diagnosis Colon, descending, polyp: Hyperplastic polyp TODAYS VISIT [place] [employer] She is agreeable to a 5 year repeat given her family history of colon cancer. The procedure was well tolerated. The results were explained and the patient is agreeable to the follow-up interval as stated. The bowel pattern has returned to normal. Education was provided to tell any 1st degree relatives about their findings to be sure that they are screened by age 45. Educated that they will be put on a recall list when it is time for their repeat scope but should they move out of state or away from the hospital they will need to remember along with their primary to repeat the procedure in a timely fashion to avoid any adverse complications. Imipramine and creon, and she is also using simethicone. BUT SHE IS NOT SURE IF SHE IS RECEIVING HER DEXILANT. I will have my staff look into this as if she is not taking it this would explain why she is having some increased problems with heartburn. She feels that when she gets the medicine she will be okay. Return office visit in 6 months per patient request ON LICENSE OF [facility] Medical History (Updated 06/02/24 @ 10:53 by ANDRÉS Oneil) Heart abnormality Shoulder pain Constipation by delayed colonic transit Swelling of left thumb Mild recurrent major depression Abdominal pain Right shoulder pain Hyperparathyroidism Vitamin D deficiency Medicare annual wellness visit, initial Polyarthralgia Thoracic spine pain History of primary hyperparathyroidism Osteoporosis Migraines Vertigo Surgical History Hx of colonoscopy (~2009) Hx of endoscopy (~2009) Hx of parathyroidectomy Hx of cholecystectomy Family History Father Colon cancer HTN (hypertension) Mother No problems noted. 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 Cognitive needs: No Hearing needs: No Vision needs: Yes Review of Systems Const Denies fatigue, Denies fever(s), Denies night sweats, Denies poor appetite and Denies weight loss ENT Reports Normal hearing present, Denies dental pain, Denies dysphagia, Denies hearing loss, Denies mouth pain, Denies odynophagia, Denies throat swelling, Denies tongue swelling and Reports other (Dentition adequate) Card Reports no additional complaints Resp Reports no additional complaints GI Details: Denies abdominal pain, Denies melena, Reports bloating, Denies hematochezia, Reports constipation, Denies GI cramping, Denies dysphagia, Denies excessive flatus, Denies early satiety, Reports heartburn, Denies diarrhea, Denies nausea, Denies odynophagia, Denies vomiting and Denies hematemesis Skin/Breast Denies pruritus, Denies lesions, Denies rash and Denies jaundice Neuro Reports Normal hearing present and Denies Abnormal speech present Endo Denies fatigue Aller/Immun Denies throat swelling and Denies tongue swelling Physical Exam Vital Signs: Last Vital Signs Pulse 64 03/31/24 16:02 BP 152/67 H 03/31/24 16:02 BMI result Body Mass Index 22.7 Const General: cooperative, no acute distress, well developed and well groomed Nutritional Appearance: average body habitus and well nourished Orientation/consciousness: oriented to person, oriented to place and oriented to time Limitations: language barrier HEENT Head: Yes normocephalic and Yes atraumatic Eyes General: appearance normal, both eyes and all related structures Pupils: Equal, round and reactive pupils present Neck Neck: Yes normal visual inspection and Yes no lymphadenopathy Thyroid: Thyroid normal Resp Effort & Inspection: normal respiratory effort and able to speak in complete sentences Auscultation: clear to auscultation bilaterally Cardio Rate: regular rate Rhythm: regular rhythm Heart sounds: Normal, physiologic split S2 sound present Peripheral pulses: radial pulses present and posterior tibial pulses present GI Inspection: No distended and No Abdominal panniculus present Palpation (GI): Soft to palpation, nontender, no guarding, not rigid and No hepatosplenomegaly present Percussion: Yes normal to percussion Auscultation: normal bowel sounds Rectal Exam - Female: deferred Skin General skin exam: no rashes or lesions noted, turgor normal, skin not dry, no jaundice, No spider nevi and no striae Rashes: no rashes Nails: normal Neuro General: oriented to person, oriented to place and oriented to time Cranial nerves: Yes Equal, round and reactive pupils present and Yes Normal hearing present Speech: No Abnormal speech present Extrem General: Yes normal to inspection, No clubbing, No cyanosis and No edema Psych Appearance: grossly normal and well kempt Mental Status: mental status grossly normal Speech and movement: Normal speech and movement present Affect: normal affect Attitude: cooperative Thought process: Normal thought process present and not confabulating Thought content: Normal thought content present Insight: Limited insight present (Psych) Judgement: Limited judgement present (Psych) Assessment & Plan Assessment & Plan (1) Family history of colon cancer in father: Comment: 02/2024 scope= hyperplastic polyp repeat in 5 years due to family history; 2019 scope clear, repeat 5 years Code(s): Z80.0 - Family history of malignant neoplasm of digestive organs Category: Medical (2) Irritable bowel syndrome with diarrhea: Comment: Diarrhea dominant process although she will have occasional constipation Code(s): K58.0 - Irritable bowel syndrome with diarrhea Category: Medical (3) GERD (gastroesophageal reflux disease): Code(s): K21.9 - Gastro-esophageal reflux disease without esophagitis Category: Medical Qualifiers: Esophagitis presence: esophagitis presence not specified Qualified Code(s): K21.9 - Gastro-esophageal reflux disease without esophagitis Plan [place] [employer] She is agreeable to a 5 year repeat given her family history of colon cancer. The procedure was well tolerated. The results were explained and the patient is agreeable to the follow-up interval as stated. The bowel pattern has returned to normal. Education was provided to tell any 1st degree relatives about their findings to be sure that they are screened by age 45. Educated that they will be put on a recall list when it is time for their repeat scope but should they move out of state or away from the hospital they will need to remember along with their primary to repeat the procedure in a timely fashion to avoid any adverse complications. Imipramine and creon, and she is also using simethicone. BUT SHE IS NOT SURE IF SHE IS RECEIVING HER DEXILANT. I will have my staff look into this as if she is not taking it this would explain why she is having some increased problems with heartburn. She feels that when she gets the medicine she will be okay. Return office visit in 6 months per patient request Medications: New dicyclomine 20 mg PO QID 90 tabs 6RF Refilled [id number] 24,000-76,000 -120,000 unit (Creon) 1 cap PO QID 120 caps 6RF K58.9 - Irritable bowel syndrome, unspecified sennosides (senna) 17.2 mg (2 x 8.6 mg) PO BEDTIME PRN 60 caps 6RF constipation 30 days simethicone 180 mg PO QID 120 caps 6RF R14.0 - Abdominal distension (gaseous) dexlansoprazole (Dexilant) 60 mg PO DAILY 90 caps 3RF K21.9 - Gastro-esophageal reflux disease without esophagitis imipramine HCl 20 mg (2 x 10 mg) PO BEDTIME 60 tabs 6RF 30 days K58.0 - Irritable bowel syndrome with diarrhea Coding Level of Care Code Est Pt Level 3 (70012) Diagnoses Family history of colon cancer in father Z80.0 Irritable bowel syndrome with diarrhea K58.0 Gastroesophageal reflux disease, unspecified whether esophagitis present K21.9 Esophagitis presence: esophagitis presence not specified
[2024-03-31 16:02] VITALS: BP 152/67; PULSE 64; BMI 22.7
== END 2024-03-31 16:41 | disposition home or self-care (01) ==
PROVIDERS: PCP Internal Medicine; Visit Provider Nurse Practitioner
DX: Z80.0 Family history of malignant neoplasm of digestive organs (principal); K58.0 Irritable bowel syndrome with diarrhea; K21.9 Gastro-esophageal reflux disease without esophagitis
CPT/HCPCS: 99213

== ENCOUNTER → 2024-03-31 15:56 | Outpatient (BNVA) | payer OTHER, SELFPAY | PROVIDERS: PCP Internal Medicine; Visit Provider Nurse Practitioner | DX: K58.0 Irritable bowel syndrome with diarrhea (principal); K21.9 Gastro-esophageal reflux disease without esophagitis; M47.816 Spondylosis without myelopathy or radiculopathy, lumbar region; M75.30 Calcific tendinitis of unspecified shoulder; R10.9 Unspecified abdominal pain; R14.0 Abdominal distension (gaseous); Z80.0 Family history of malignant neoplasm of digestive organs; Z71.2 Person consulting for explanation of examination or test findings | CPT/HCPCS: 99212 ==

== ENCOUNTER 2024-07-08 11:11 | Outpatient (REF) | payer OTHER, SELFPAY ==
[2024-07-08 12:06] LABS: Influenza A PCR NEGATIVE (Negative); Influenza B PCR NEGATIVE (Negative); Resp Syncy Virus RNA Qual PCR NEGATIVE (Negative); SARS COV2 PCR INHOUSE NEGATIVE (Negative)
--- OUTSIDE RECORDS SUMMARY | 2024-07-08 13:20 | XMS_ITS | Encounter Summary ---
Author Organization [employer] Address [address] [place] [address] Care Team Providers Care Deputy County Counsel Name Role Phone Unavailable Primary Care Provider Unavailabl e Encounter Details Date Type Department Care Team (Latest Contact Info) Description 07/20/2020 Abstract C CONVERSIONS Dental, Provider, DDS Social History Tobacco Use Types Packs/Day Years Used Date Smoking Tobacco: Never Assessed Comments Unknown Sex and Gender Information Value Date Recorded Sex Assigned at Female 04/14/2022 10:25 AM EDT Legal Sex Female 10:25 AM EDT Gender Identity Female 04/14/2022 10:25 AM EDT Sexual Orientation Straight 04/14/2022 10 :25 AM EDT documented as of this encounter Plan of Treatment Not on file documented as of this encounter Visit Diagnoses Not on filedocumented in this encounter
--- OUTSIDE RECORDS SUMMARY | 2024-07-08 13:20 | XMS_ITS | Encounter Summary ---
Author Organization [employer] Address [address] [place] [address] Care Team Providers Care Benefits Technician Name Role Phone Unavailable Primary Care Provider Unavailabl e Encounter Details Date Type Department Care Team (Latest Contact Info) Description 12/02/2018 Abstract [facility] CONVERSIONS Dental, Provider, DDS Social History Tobacco [...]
--- OUTSIDE RECORDS SUMMARY | 2024-07-08 13:20 | XMS_ITS | Clinical Summary ---
Author Organization [employer] Address [address] 7t [place] [address] Care Team Providers Care Real Estate Manager Name Role Phone Unavailable Primary Care Provider Unavailabl e Allergies Active Allergy Reactions Criticality Noted Date Comments Ciprofloxacin Anaphylaxis High 12/25/2014 Metronidazole Anaphylaxis High 12/25/2014 Tramadol 04/17/2015 Medications dicyclomine (Bentyl) 20 MG tablet Take 20 mg by mouth 4 times daily. 3 Active gabapentin (Neurontin) 400 MG capsule Take 400 mg by mouth 3 times daily. 3 Active hydrocortisone (Anusol-HC) 2.5 % rectal cream APPLY RECTALLY TO THE AFFECTED AREA TWICE DAILY FOR HEMORRHOIDS 3 Active Creon 36318-29750 units capsule Take 1 capsule by mouth 4 times daily. 3 Active Simethicone Ultra Strength 180 MG capsule Take 180 mg by mouth 4 times daily. 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 Dental calculus 10/27/2022 Dental caries into pulp 10/27/2022 Encounters Date Type Department Care Team Description 04/25/2024 9:00 AM EST Office Visit [facility] [address] [place] [address] Charlie Darby DDS Symptomatic irreversible pulpitis (Primary Dx); Non-restorable tooth from Last 3 Months Social History Tobacco Use Types Packs/Day Years Used Date Smoking Tobacco: Never Passive Smoke Exposure: Never Smokeless Tobacco: Never Tobacco Cessation:Counseling Given: No Alcohol Use Standard Drinks/Week Comments Defer 0 (1 standard drink = 0.6 oz pur e alcohol) Comments Unknown Sex and Gender Information Value Date Recorded Sex Assigned at Female 04/14/2022 10:25 AM EDT Legal Sex Female 10:25 AM EDT Gender Identity Female 04/14/2022 10:25 AM EDT Sexual Orientation Straight 04/14/2022 10 :25 AM EDT Last Filed Vital Signs Vital Sign Reading Time Taken Comments Blood Pressure 124/74 03/25/2024 10:47 AM EDT Pulse 78 10/27/2022 10:09 AM EDT Temperature - - Respiratory Rate - - Oxygen Saturation - - Inhaled Oxygen Concentration - - Weight - - Height - - Body Mass Index - - Plan of Treatment Health Maintenance Due Date Last Done Comments CT Colonography 1955 Colonoscopy 1955 Colorectal Cancer Screening 1955 Depression Screening 1955 FIT DNA/Cologuard 1955 FIT 1955 FOBT 1955 SDOH Screening 1955 Sigmoidoscopy 1955 Alcohol/Substance Use Screening 1967 Hepatitis C Screening 08/12/1973 DTaP/Tdap/Td Vaccines (1 - Tdap) 08/12/1974 Hepatitis A Vaccines (1 of 2 - Risk 2-dose series) 08/12/1974 Mammogram 1995 Zoster Vaccines (1 of 2) 08/12/2005 Hepatitis B Vaccines (1 of 3 - Risk 3-dose series) 2015 RSV Patients and Patients Aged 60 years or older (1 - Risk 60-74 years 1-dose series) 2015 Pneumococcal Vaccine: 65+ Years (1 of 1 - PCV) 08/12/2020 Dental Oral Exam 04/30/2023 10/27/2022, , 12/02/2018, Additional history exists Dental Prophylaxis 04/30/2023 10/27/2022, 0 07/20/2020, 06/02/2019, Additional history exists Dental X-Ray: Bitewings 10/29/2023 10/28/19 23, 12/02/2018, 12/01/2017, Additional history exists COVID-19 Vaccine (3 - 2024-25 season) 2024 07/26/2021, 07/05/2021 Influenza Vaccine (#1) 2024 Tobacco Screening 04/25/2025 04/25/2024 Dental X-Ray: Full Mouth 10/28/2025 10/27/2022, 12/13 HIB Vaccines Aged Out No longer eligi ble based on patient's age to complete this topic HPV Vaccines Aged Out No longer eligi ble based on patient's age to complete this topic IPV Vaccines Aged Out No longer eligi ble based on patient's age to complete this topic Meningococcal Vaccine Aged Out No eliana shyann eligible based on patient's age to complete this topic RSV under 20 months Aged Out No longe r eligible based on patient's age to complete this topic Rotavirus Vaccines Aged Out No longer eligible based on patient's age to complete this topic Procedures Procedure Name Priority Date/Time Associated Diagnosis Comments ADJUNCTIVE GENERAL SERVICES - PROFESSIONAL VISITS - CASE PRESENTATION, SUBSEQUENT TO DETAILED AND EXTENSIVE TREATMENT PLANNING Routine 04/25/2024 9:00 AM EST 18 EXTRACTION, ERUPTED TOOTH REQUIRING REMOVAL OF BONE AND/OR SECTIONING OF TOOTH, AND INCLUDING ELEVATION OF MUCOPERIOSTEAL FLAP IF INDICATED Routine 04/25/2024 9:00 AM EST PERIODIC ORAL EVALUATION - ESTABLISHED PATIENT Routine 10/27/2022 11:00 AM EDT PROPHYLAXIS - ADULT Routine 10/27/2022 1 0:00 AM EDT Dental calculus DIAGNOSTIC - DIAGNOSTIC IMAGING - INTRAORAL - COMPREHENSIVE SERIES OF RADIOGRAPHIC IMAGES Routine 10/27/2022 10:00 AM EDT Tipped teeth Dental calculus Dental caries Localized gingival recession from Last 3 Months or Most Recently Relevant to Health Maintenance Insurance DENTAL - [facility]
== END 2024-07-08 11:12 | disposition home or self-care (01) ==
LOC: HO.LAB 11:11
PROVIDERS: PCP Internal Medicine; Visit Provider Internal Medicine
DX: R09.89 Other specified symptoms and signs involving the circulatory and respiratory systems (principal)
CPT/HCPCS: 0241U

== ENCOUNTER 2024-08-11 11:43 | Outpatient (REF) | payer OTHER, SELFPAY ==
[2024-08-11 13:06] LABS: Influenza A PCR POSITIVE (Negative); Influenza B PCR NEGATIVE (Negative); Resp Syncy Virus RNA Qual PCR NEGATIVE (Negative); SARS COV2 PCR INHOUSE NEGATIVE (Negative)
--- OUTSIDE RECORDS SUMMARY | 2024-08-11 14:20 | XMS_ITS | Encounter Summary ---
Author Organization [employer] Address [address] [place] [address] Care Team Providers Care Hand Salter Name Role Phone Unavailable Primary Care Provider [...]
--- OUTSIDE RECORDS SUMMARY | 2024-08-11 14:20 | XMS_ITS | Encounter Summary ---
Author Organization [employer] Address [address] [place] [address] Care Team Providers Care Social Security Assessor Name Role Phone Unavailable Primary Care Provider Unavailabl e Encounter Details Date Type Department Care Team (Latest Contact Info) Description 12/02/2018 Abstract [facility] CONVERSIONS Dental, Provider, DDS Social History Tobacco [...]
--- OUTSIDE RECORDS SUMMARY | 2024-08-11 14:20 | XMS_ITS | Clinical Summary ---
Author Organization [employer] Address [address] [place] [address] Care Team Providers Care Tetryl Nitrator Operator Name Role Phone Unavailable Primary Care Provider [...] TWICE DAILY FOR HEMORRHOIDS 3 Active Creon [id number] units capsule Take 1 capsule by mouth [...] calculus 10/27/2022 Dental caries into pulp 10/27/2022 Social History Tobacco Use Types Packs/Day Years [...] - Risk 2-dose series) 08/12/1974 Mammogram 1995 Pneumococcal Vaccine: 50+ Years (1 of 1 - PCV) 08/12/2005 Zoster Vaccines (1 of 2) 08/12/2005 Hepatitis B Vaccines (1 of 3 - Risk 3-dose series) 2015 RSV Patients and Patients Aged 60 years or older (1 - Risk 60-74 years 1-dose series) 2015 Dental Oral Exam 04/30/2023 10/27/2022, , 12/02/2018, Additional history exists Dental Prophylaxis 04/30/2023 10/27/2022, 0 07/20/2020, 06/02/2019, Additional history exists Dental X-Ray: Bitewings 10/29/2023 10/28/19 23, 12/02/2018, 12/01/2017, Additional history exists COVID-19 Vaccine ( season) 2024 07/26/2021, 07/05/2021 Influenza Vaccine (#1) [...] Procedure Name Priority Date/Time Associated Diagnosis Comments PERIODIC ORAL EVALUATION - ESTABLISHED PATIENT Routine 10/27/2022 11:00 AM EDT PROPHYLAXIS - ADULT Routine 10/27/2022 1 0:00 AM EDT Dental calculus INTRAORAL - COMPLETE SERIES OF RADIOGRAPHIC IMAGES Routine 10/27/2022 10:00 AM EDT Tipped teeth Dental calculus Dental caries Localized gingival recession from Last 3 Months or Most Recently Relevant to Health Maintenance [facility]
== END 2024-08-11 11:44 | disposition home or self-care (01) ==
LOC: HO.LAB 11:43
PROVIDERS: PCP Internal Medicine; Visit Provider Internal Medicine
DX: R09.89 Other specified symptoms and signs involving the circulatory and respiratory systems (principal)
CPT/HCPCS: 0241U

== ENCOUNTER 2024-08-30 09:14 | Outpatient (AMB) | payer OTHER, SELFPAY ==
[2024-08-30 09:44] VITALS: BP 110/68; PULSE 65; O2SAT 97; BMI 23.0
--- NOTE | 2024-08-30 09:44 | MHC.PC.OV ---
Vital Signs 08/30/24 09:44 Height 5 ft 4 in Weight 134 lb 2 oz BMI 23.0 BP 110/68 Blood Pressure Location Lt brachial Position Sitting Pulse 65 Pulse Source Pulse Oximeter Pulse Oximetry (%) 97 Oxygen Delivery Method Room Air Intake Visit Reasons: Annual Exam Director Of Strategic Marketing Required: Yes Director Of Strategic Marketing Language: Trim Mounter Name: Cee Stinson MD Information Interpreted: non-clinical & clinical Accompanied by: Self / Same As Patient Allergies alendronate sodium [Fosamax] Allergy (Intermediate, Verified 08/30/24 10:01) low back pain ciprofloxacin [From CIPRO] Allergy (Intermediate, Verified 08/30/24 10:01) SHORTNESS OF BREATH cyclobenzaprine Allergy (Intermediate, Verified 08/30/24 10:01) DIZZY FOGGY , dizziness metronidazole [From FLAGYL] Allergy (Intermediate, Verified 08/30/24 10:01) DISTENDED ABDOMEN, DIFFICULTY BREATHING tramadol [TRAMADOL] Allergy (Intermediate, Verified 08/30/24 10:01) VOMITING Hydrocodone-Acetaminophen Allergy (Intermediate, Uncoded 08/30/24 10:01) dizziness, insomnia Medication List - Last Reconciled 08/30/24 by Cee Stinson MD baclofen 5 mg PO BID PRN dexlansoprazole (Dexilant) 60 mg PO DAILY dicyclomine 20 mg PO QID gabapentin 400 mg PO TID 30 days hydrocortisone 2.5% 1 appl [place] BID imipramine HCl 20 mg (2 x 10 mg) PO BEDTIME 30 days lidocaine 5% 1 patch topical DAILY wljwwh-pnwbdcev-zyxbnul 24,000-76,000 -120,000 unit (Creon) 1 cap PO QID meclizine 25 mg PO DAILY PRN 30 days nitrofurantoin macrocrystal 100 mg PO BID 5 days oseltamivir (Tamiflu) 75 mg PO BID 5 days peg 3350-electrolytes 236-22.74-6.74 -5.86 gram (Golytely) 240 mL PO Q10M 1 day sennosides (senna) 17.2 mg (2 x 8.6 mg) PO BEDTIME PRN 30 days simethicone 180 mg PO QID tizanidine 2 mg PO Q8H PRN topiramate 50 mg PO BID Tobacco use date assessed: 08/30/24 Fall risk assessment: No Falls in past year Last assessed Fall Risk: 03/18/25 Dental Screening Dental Screen Date: 08/30/24 Did you have a dental visit in the last 12 months?: Yes Did you have a dental problem in the last 6 months where you did not have access to dental care?: No Was dental information given to patient?: Patient has dentist HPI HPI Comments History of Present Illness Details The patient is a 69-year-old female presenting for her annual physical examination. She brings forth a history of osteoporosis confirmed last year via bone densitometry, accompanied by significant pain. Her fibromyalgia is managed with gabapentin at 400 mg, administered thrice daily. The patient experiences several allergies to medications, notably Fosamax causing back pain, Cipro inducing shortness of breath, Flexeril leading to dizziness, Flagyl resulting in breathing difficulties, and Tramadol provoking vomiting. She complains of dysuria that started few days ago and has urinary tract infection. Antibiotic will be sent. She describes enduring anxiety driven by familial stressors, linked to health issues within her family. A familial history pertinent to colon cancer is noted, with her father having had the disease. The patient underwent a colonoscopy last year revealing a hyperplastic polyp, with the next screening scheduled for 2028 given her family history. She has ceased smoking and abstains from alcohol consumption. - Colonoscopy last year revealed a hyperplastic polyp; next screening in 2028 due to family history of colon cancer. - Mammography completed last year with a follow-up scheduled this year. - Bone densitometry performed last year, indicating osteoporosis; next screening scheduled for 2025. - Declined pneumonia and tetanus vaccinations during this visit. - Does not consume alcohol and has quit smoking. [facility] Medical History (Updated 08/30/24 @ 10:34 by Cee Stinson MD) Heart abnormality Shoulder pain Constipation by delayed colonic transit Swelling of left thumb Mild recurrent major depression Abdominal pain Right shoulder pain Hyperparathyroidism Vitamin D deficiency Medicare annual wellness visit, initial Polyarthralgia Thoracic spine pain History of primary hyperparathyroidism Osteoporosis Migraines Vertigo Surgical History Hx of colonoscopy (~2009) Hx of endoscopy (~2009) Hx of parathyroidectomy Hx of cholecystectomy Family History Father Colon cancer HTN (hypertension) Mother No problems noted. 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 1. Little interest or pleasure in doing things: not at all 2. Feeling down, depressed, or hopeless: not at all 3. Trouble falling or staying asleep, or sleeping too much: not at all 4. Feeling tired or having little energy: not at all 5. Poor appetite or overeating: not at all 6. Feeling bad about yourself - or that you are a failure or have let yourself or your family down: not at all 7. Trouble concentrating on things, such as reading the newspaper or watching television: not at all 8. Moving or speaking so slowly that other people could have noticed. Or the opposite - being so fidgety or restless that you have been moving around a lot more than usual: not at all 9. Thoughts that you would be better off or of hurting yourself in some way: not at all Total score: 0 Depression Screening Interpretation: Negative Depression Screening Done: Yes 00379 - PHQ-9 Billing: Yes Source: Developed by Drs. Abhijit Vega, Annamarie Rosa, Jr Bourne and colleagues, with an educational tia from [employer]. Thrive Questionnaire Date Thrive assessed: 08/30/24 I am a: Patient What is your living situation today?: I have a steady place to live Within the past 12 months, did the food you bought not last and you didn't have the money to get more?: Never true Within the past 12 months, did you worry whether your food would run out before you got money to buy more?: Never true Do you have trouble paying for medicines?: No Do you have trouble getting transportation to medical appointments?: No Do you have trouble paying your heating and electricity bill?: No Do you have trouble taking care of your child, family member or friend?: No Do you have trouble with day-to-day activities such as bathing, preparing meals, shopping, managing finances, etc.?: No Are you currently unemployed and looking for a job?: No Are you interested in more education?: No Please select the resources that you would like help with: None THRIVE Score: 0 AUDIT C Alcohol Use Questionnaire (AUDIT-C) 1. How often do you have a drink containing alcohol?: Never 3. How often do you have six or more drinks on one occasion?: Never Total Score: 0 Score Reviewed/Action Taken: No GREGORY-7 AMB Questionnaire GREGORY-7 Date GREGORY - 7 assessed: 08/30/24 Feeling nervous, anxious, or on edge: 2 = More than half the days Not being able to stop or control worryin = Not at all Worrying too much about different things: 1 = Several days Trouble relaxin = Not at all Being so restless that it is hard to sit still: 0 = Not at all Becoming easily annoyed or irritable: 0 = Not at all Feeling afraid as if something awful might happen: 0 = Not at all Total GREGORY-7 score (0-4 normal; 5-9 mild; 10-14 moderate; 15-21 severe): 3 Source: Developed by Drs. Abhijit Vega, Annamarie Rosa, Jr Bourne and colleagues, with an educational tia from [employer]. GREGORY-7 Assessment Billing GREGORY-7 Assessment Tool: GREGORY-7 Assessment 42497 Review of Systems Const All systems reviewed & are unremarkable except as noted in HPI and below Card Denies chest pain at rest, Denies chest pain with activity, Denies edema, Denies irregular heart rhythm, Denies claudication, Denies dyspnea, Denies dyspnea on exertion, Denies orthopnea, Denies paroxysmal nocturnal dyspnea and Denies slow heart rate Resp Denies cough, Denies dyspnea and Denies dyspnea on exertion GI Reports abdominal pain Musc Reports back pain, Denies atrophy, Denies deformity, Reports arthralgias and Denies limited range of motion Skin/Breast Denies bleeding lesions, Denies changing lesions and Denies rash Physical exam (Primary Care) Vital Signs: Last Vital Signs Pulse 65 08/30/24 09:44 BP 110/68 08/30/24 09:44 Pulse Ox 97 08/30/24 09:44 Oxygen Delivery Method Room Air 08/30/24 09:44 BMI result Body Mass Index 23.0 Tobacco/Smoking Status: Tobacco use Status Tobacco use date assessed 08/30/24 08/30/24 09:51 Patient Tobacco Use Status Former Tobacco user 08/30/24 09:51 Tobacco use type Cigarette 08/30/24 09:51 e-Cigarette/Vaping Use Never Used 08/30/24 09:51 PHQ-9: PHQ-9 Score PHQ-9: Total score 0 08/30/24 10:08 Depression Screening Interpretation: Negative Thrive Assessment: Date of Thrive Assessment Date Thrive assessed 08/30/24 08/30/24 09:51 Const Orientation/consciousness: patient oriented x3 HENMT Head: Yes normal to inspection, Yes normocephalic and Yes atraumatic Ears: external ears normal Eyes General: appearance normal, both eyes and all related structures Eyelids: Yes eyelids normal Conjunctivae: conjunctivae normal Neck Neck: Yes normal visual inspection and Yes supple Resp Effort & Inspection: normal respiratory effort Auscultation: clear to auscultation bilaterally Cardio Jugular venous distension: no JVD Rate: regular rate Rhythm: regular rhythm Heart sounds: S1 normal heart sound present and S2 normal heart sound present GI Inspection: Yes normal to inspection Palpation (GI): Soft to palpation and nontender Auscultation: normal bowel sounds Skin General skin exam: no rashes or lesions noted Neuro General: patient oriented x3 and no focal motor deficits Extrem General: Yes full ROM Psych Appearance: grossly normal Results AMB Urinalysis, Automated UA Leukoctes 1 Ashok/uL Last Edit by PHIL Sutton on 08/30/24 10:24 UA Nitrite Negative Last Edit by PHIL Sutton on 08/30/24 10:24 UA Urobilinogen 0 mg/dL Last Edit by PHIL Sutton on 08/30/24 10:24 UA Protein 0 mg/dL Last Edit by PHIL Sutton on 08/30/24 10:24 UA pH 6.0 Last Edit by PHIL Sutton on 08/30/24 10:24 UA Blood 0 Bobby/uL Last Edit by PHIL Sutton on 08/30/24 10:24 UA Specific [place] 1.030 Last Edit by Lluvia Michaels, CHANDLERA on 08/30/24 10:24 UA Ketone Negative Last Edit by Lluvia Michaels, PHIL on 08/30/24 10:24 UA Bilirubin 0 mg/dL Last Edit by Lluvia Michaels, RMA on 08/30/24 10:24 UA Glucose 0 mg/dL Last Edit by Lluvia Michaels, PHIL on 08/30/24 10:24 Coding Level of Care Code Est Pt Level 3 (67101) Est Pt Prev Care >65y(59992) Diagnoses Physical exam Z00.00 Osteoporosis M81.0 UTI (urinary tract infection) N39.0 Additional Codes GREGORY-7 Assessment Billing - GREGORY-7 Assessment Tool: GREGORY-7 Assessment 66799 ([id number]) PHQ-9 - 28078 - PHQ-9 Billing: Yes ([id number]) Time Spent (min) 34 Assessment & Plan Assessment & Plan (1) Physical exam: Code(s): Z00.00 - Encounter for general adult medical examination without abnormal findings Category: Medical (2) Osteoporosis: Code(s): M81.0 - Age-related osteoporosis without current pathological fracture Category: Medical (3) UTI (urinary tract infection): Code(s): N39.0 - Urinary tract infection, site not specified Category: Medical Plan Regarding anxiety, engaging in therapeutic efforts or counseling was suggested due to familial stressors. Fibromyalgia management includes continued use of gabapentin 400 mg, monitoring its effectiveness and side effects. I discussed maintaining caution with her known medication allergies. Colon cancer risk is addressed with scheduled colonoscopic surveillance, noted for 2028 due to family history. She declined pneumonia and tetanus vaccinations, therefore, respecting her choice, she was informed of their benefits. Referral to endocrinology was proposed to address osteoporosis management effectively given past issues with Fosamax.: Patient was informed and verbally consented to the use of an ambient scribe for clinic note documentation during this visit. I discussed with the patient the importance of alternative approaches for osteoporosis due to her history of adverse reactions to Fosamax. Emphasized the value of regular monitoring and the possibility of endocrinology involvement for comprehensive care. Managed anxiety concerns by discussing the influence of her familial situations and suggesting therapeutic options. Reinforced the surveillance schedule for colonoscopy because of familial colon cancer. Addressed multiple drug allergies and underscored the need for careful medication selection. Although she declined additional vaccinations, I informed her about their preventative efficacy. Engaged the patient in a dialogue to prioritize her preferences and ensure patient-centered care throughout. Orders: Orders Lipid Panel Today E78.5 - Hyperlipidemia, unspecified Vitamin D 25-OH Total Today E55.9 - Vitamin D deficiency, unspecified Comprehensive [place]. Panel Fast Today Z00.00 - Encounter for general adult medical examination without abnormal findings AMB Urinalysis Automated Today R30.0 - Dysuria Referrals Endocrinology Referral M81.0 - Age-related osteoporosis without current pathological fracture Medications: Refilled nitrofurantoin macrocrystal must administer with a meal/food 100 mg PO BID 5 days 10 caps 0RF Z00.00 - Encounter for general adult medical examination without abnormal findings Discontinued lidocaine 5% leave on most painful area for up to 12 hrs Discontinued Reason: Patient Completed Course 1 patch topical DAILY 30 ea 3RF oseltamivir (Tamiflu) Discontinued Reason: Patient Completed Course 75 mg PO BID 5 days 10 caps 0RF Patient Instructions: - Monitor for any side effects or changes in symptoms with current medications. - Engage in therapy or counseling to address anxiety. - Follow the revised colonoscopy schedule for cancer prevention. - Continue to abstain from smoking and alcohol. - Consider the benefits of vaccinations and discuss any questions during follow-ups. - Follow up with endocrinology for osteoporosis management.
== END 2024-08-30 10:18 | disposition home or self-care (01) ==
LOC: HO.HMCH 09:15
PROVIDERS: PCP Internal Medicine; Visit Provider Internal Medicine
DX: Z00.00 Encounter for general adult medical examination without abnormal findings (principal); M81.0 Age-related osteoporosis without current pathological fracture; N39.0 Urinary tract infection, site not specified; R30.0 Dysuria

== ENCOUNTER → 2024-08-30 09:14 | Outpatient (BNVA) | payer OTHER, SELFPAY | PROVIDERS: PCP Internal Medicine; Visit Provider Internal Medicine | DX: Z00.01 Encounter for general adult medical examination with abnormal findings (principal); M81.0 Age-related osteoporosis without current pathological fracture; N39.0 Urinary tract infection, site not specified | CPT/HCPCS: 81003; 96127; 99212; 99397 ==

== ENCOUNTER 2024-09-13 07:57 | Outpatient (REF) | payer OTHER, SELFPAY ==
--- OUTSIDE RECORDS SUMMARY | 2024-09-13 08:04 | XMS_ITS | Encounter Summary ---
Author Organization [employer] Address [address] [place] [address] Care Team Providers Care Geodetic Engineer Name Role Phone Unavailable Primary Care Provider [...]
--- OUTSIDE RECORDS SUMMARY | 2024-09-13 08:04 | XMS_ITS | Clinical Summary ---
Author Organization [employer] Address [address] [place] [address] Care Team Providers Care Sulfate Drier Machine Operator Name Role Phone Unavailable Primary Care [...] TWICE DAILY FOR HEMORRHOIDS 3 Active Creon 30431-73639 units capsule Take 1 capsule by mouth [...] Relevant to Health Maintenance Insurance DENTAL - [facility]
--- OUTSIDE RECORDS SUMMARY | 2024-09-13 08:04 | XMS_ITS | Encounter Summary ---
Author Organization [employer] Address [address] [place] [address] Care Team Providers Care Rn Care Transition Name Role Phone Unavailable Primary Care Provider Unavailabl e Encounter Details Date Type Department Care Team (Latest Contact Info) Description 12/02/2018 Abstract [facility] CONVERSIONS Dental, Provider, DDS Social History Tobacco [...]
== END 2024-09-13 07:58 | disposition home or self-care (01) ==
LOC: HO.MAMMO 07:57
PROVIDERS: PCP Internal Medicine; Visit Provider Internal Medicine
DX: Z12.31 Encounter for screening mammogram for malignant neoplasm of breast (principal)
CPT/HCPCS: 77063; 77067

== ENCOUNTER → 2024-09-13 08:15 | Outpatient (BNV) | payer OTHER, SELFPAY | PROVIDERS: PCP Internal Medicine; Visit Provider Internal Medicine | DX: Z12.31 Encounter for screening mammogram for malignant neoplasm of breast (principal) | CPT/HCPCS: 77063; 77067 ==

== ENCOUNTER 2024-09-14 08:11 | Outpatient (AMB) | payer OTHER, SELFPAY ==
--- OUTSIDE RECORDS SUMMARY | 2024-09-14 08:20 | XMS_ITS | Encounter Summary ---
Author Organization [employer] Address [address] [place] [address] Care Team Providers Care Senior Information Security Architect Name Role Phone Unavailable Primary Care Provider [...]
--- OUTSIDE RECORDS SUMMARY | 2024-09-14 08:20 | XMS_ITS | Encounter Summary ---
Author Organization [employer] Address [address] [place] [address] Care Team Providers Care Adjunct Trainer Name Role Phone Unavailable Primary Care Provider Unavailabl e Encounter Details Date Type Department Care Team (Latest Contact Info) Description 12/02/2018 Abstract [facility] CONVERSIONS Dental, Provider, DDS Social History Tobacco [...]
--- OUTSIDE RECORDS SUMMARY | 2024-09-14 08:20 | XMS_ITS | Clinical Summary ---
Author Organization [employer] Address [address] [facility] [address] [place] [address] Care Team Providers Care Court Interpreter Name Role Phone Unavailable Primary Care Provider [...] TWICE DAILY FOR HEMORRHOIDS 3 Active Creon 49689-41378 units capsule Take 1 capsule by mouth [...] Relevant to Health Maintenance Insurance [facility]
--- NOTE | 2024-09-14 08:34 | A.OFFVIS_ITS ---
Vital Signs 09/14/24 08:39 Height 5 ft 1.1 in Weight 132 lb 15.02 oz BMI 25.0 BP 114/62 Blood Pressure Location Rt brachial Position Sitting Pulse 70 Pulse Source Pulse Oximeter Pulse Oximetry (%) 96 Oxygen Delivery Method Room Air Intake Visit Reasons: Age-related osteoporosis without current patholog Intake Note: New patient present today for Age related Osteoporosis. 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 Industrial Engineering Professor Services: Industrial Engineering Professor Present Industrial Engineering Professor Name: Krystyna [id number] Information Interpreted: non-clinical & clinical Accompanied by: Self / Same As Patient Allergies alendronate sodium [Fosamax] Allergy (Intermediate, Verified 09/14/24 08:41) low back pain ciprofloxacin [From CIPRO] Allergy (Intermediate, Verified 09/14/24 08:41) SHORTNESS OF BREATH cyclobenzaprine Allergy (Intermediate, Verified 09/14/24 08:41) DIZZY FOGGY , dizziness metronidazole [From FLAGYL] Allergy (Intermediate, Verified 09/14/24 08:41) DISTENDED ABDOMEN, DIFFICULTY BREATHING tramadol [TRAMADOL] Allergy (Intermediate, Verified 09/14/24 08:41) VOMITING Hydrocodone-Acetaminophen Allergy (Intermediate, Uncoded 09/14/24 08:41) dizziness, insomnia Medication List - Last Reconciled 09/14/24 by Abhijit Bueno MD baclofen 5 mg PO BID PRN dexlansoprazole (Dexilant) 60 mg PO DAILY dicyclomine 20 mg PO QID gabapentin 400 mg PO TID 30 days hydrocortisone 2.5% 1 appl CO BID imipramine HCl 20 mg (2 x 10 mg) PO BEDTIME 30 days iqvdny-suughvfi-fhkuzdm 24,000-76,000 -120,000 unit (Creon) 1 cap PO QID meclizine 25 mg PO DAILY PRN 30 days nitrofurantoin macrocrystal 100 mg PO BID 5 days peg 3350-electrolytes 236-22.74-6.74 -5.86 gram (Golytely) 240 mL PO Q10M 1 day sennosides (senna) 17.2 mg (2 x 8.6 mg) PO BEDTIME PRN 30 days simethicone 180 mg PO QID HPI Comments Details: 69 YO Female with PMHx Hyperparathyroidism s/p parathyroidectomy and also Osteoporosis who is seen in F/U. She was initially diagnosed with primary hyperparathyroidism in 2001 at [facility]. She underwent a surgical parathyroidectomy 11/22/2003, and reports that she had 3 glands resected. She was found to have elevated alk phos levels, and underwent a bone scan in 2006, with no evidence of pagets disease. She has been treated in the past with both Actonel and Fosamax, it is unclear the full duration. She did not tolerate Fosamax well due to back pain. No history of pathologic fracture or ONJ. Has 1 servings of dietary calcium per day in the form of cheese. Takes Calcium supplement 1200 mg daily in divided doses. Does not take Vitamin D. Uses PPI daily. Denies ever using anticoagulant, antiepileptic or glucocorticoid medication. Does not do any scheduled exercise. 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 Menses were always regular. . She breastfed for 6 months. Menopause was age 55. She did not use HRT. Denies history of Kidney stones. Denies family history of Osteoporosis or hip fracture. UTD on dental cleanings and sees dentist every 6 months. She is going to be having 3-4 teeth pulled in the coming months. DXA: 08/01/2021 FINDINGS: AP SPINE L1-L4: Current: BMD 1.062 g/cm2, Z-score 0.5, T-score -1.0, normal, 6.2% decrease from previous, 10.2% decrease from baseline (<5% change is not significant). Prior: BMD 1.132 g/cm2. Baseline: BMD 1.183 g/cm2. LEFT FEMUR, NECK: Current: BMD 0.815 g/cm2, Z-score -0.2, T-score -1.6, osteopenia. Prior: BMD 0.817 g/cm2. Baseline: BMD 0.895 g/cm2. LEFT FEMUR, TOTAL: Current: BMD 0.881 g/cm2, Z-score 0.2, T-score -1.0, normal, 3.9% decrease from previous, 10.3% decrease from baseline (<5% change is not significant). Prior: BMD 0.917 g/cm2. Baseline: BMD 0.982 g/cm2. LEFT FOREARM RADIUS 33%: BMD 0.669 g/cm2, Z-score -0.9, T-score -2.4, osteopenia, 0.5% increase from previous, 7.9% decrease from baseline (<5% change is not significant). Prior: BMD 0.666 g/cm2. Baseline 11/23/2014: BMD 0.726 g/cm2. Labs: Laboratory Tests 05/30/21 05/30/21 05/30/21 10:09 10:09 10:09 Creatinine 0.74 Estimated GFR > 60 Alkaline Phosphatase 125 H Albumin 3.9 PEP Interpretation SEE NOTE N-Telopeptide X-linked 25-OH Vitamin D Total 44.3 TSH 0.56 Free T4 0.90 PTH Intact 43 Calcium (PTH Intact) 8.9 06/27/21 11:18 Creatinine Estimated GFR Alkaline Phosphatase Albumin PEP Interpretation N-Telopeptide X-linked 39 25-OH Vitamin D Total TSH Free T4 PTH Intact Calcium (PTH Intact) Does not want virtual scribe [facility] Medical History Heart abnormality Shoulder pain Constipation by delayed colonic transit Swelling of left thumb Mild recurrent major depression Abdominal pain Right shoulder pain Hyperparathyroidism Vitamin D deficiency Medicare annual wellness visit, initial Polyarthralgia Thoracic spine pain History of primary hyperparathyroidism Osteoporosis Migraines Vertigo Surgical History Hx of colonoscopy (~2009) Hx of endoscopy (~2009) Hx of parathyroidectomy Hx of cholecystectomy Family History Father Colon cancer HTN (hypertension) Mother No problems noted. 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 She now has low bone mass in her spine and hip but borderline osteoporosis in her forearm. Would continue nonpharmacologic therapy for now and recheck DEXA bone density in 1 year's time. This can be done by patient's primary care provider. If it DEXA bone density shows significant declines, the patient returned back to endocrinology for rediscussion of pharmacologic therapy such as intravenous Reclast or Prolia Coding Level of Care Code Est Pt Level 3 (15282) Diagnoses Osteoporosis M81.0
[2024-09-14 08:39] VITALS: BP 114/62; PULSE 70; O2SAT 96; BMI 25.0
== END 2024-09-14 08:51 | disposition home or self-care (01) ==
LOC: HO.ENCR 08:12
PROVIDERS: PCP Internal Medicine; Visit Provider Internal Medicine Endocrinology, Diabetes & Metabolism
DX: M81.0 Age-related osteoporosis without current pathological fracture (principal)
CPT/HCPCS: 99213

== ENCOUNTER → 2024-09-14 08:11 | Outpatient (BNVA) | payer OTHER, SELFPAY | PROVIDERS: PCP Internal Medicine; Visit Provider Internal Medicine Endocrinology, Diabetes & Metabolism | DX: M81.0 Age-related osteoporosis without current pathological fracture (principal) | CPT/HCPCS: 99212 ==

== ENCOUNTER 2024-09-23 08:43 | Outpatient (REF) | payer OTHER, SELFPAY ==
[2024-09-23 09:51] LABS: Appearance Urine Clear; Color Urine Yellow; Glucose Urine UA Negative (Negative); Leukocyte Esterase Urine Trace (Negative); Nitrite Urine Negative (Negative); PH 5.5 (5.0-9.0); UMIC TRIGGER UACC YES; Urine Blood Negative (Negative); Urine Ketones Negative (Negative); Urine Protein Negative (Neg-Trace)
[2024-09-23 09:54] LABS: Bacteria Urine None Seen (None Seen); Hyaline Casts Urine 0-2 /LPF (0-2); RBC Urine 0-2 /HPF (0-2); Squamous Epithelial Cell Urine 0-2 /HPF (0-2); WBC Urine 0-5 /HPF (0-5)
[2024-09-23 10:13] LABS: Alanine Aminotransferase 17 U/L (0-31); Albumin Level 3.9 g/dL (3.5-5.0); Alkaline Phosphatase 117 U/L (39-117); Anion Gap 9 (12-20); Aspartate Amino Transferase 24 U/L (5-31); Bilirubin Total 0.4 mg/dL (0.0-1.0); Blood Urea Nitrogen 11 mg/dL (9-16); Carbon Dioxide 30 mmol/L (22-29); Chloride 110 mmol/L (96-108); Cholesterol 146 mg/dL (<200); Estimated Glomerular Filt Rate > 60; Glucose Fasting 89 mg/dL (60-99); HDL Cholesterol 45 mg/dL (>40); LDL Cholesterol Calculated 70 mg/dL (<100); Potassium 4.1 mmol/L (3.3-5.1); Sodium 145 mmol/L (135-145); Total Protein 6.9 g/dL (6.5-8.0); Triglycerides 155 mg/dL (<150)
[2024-09-23 10:35] LABS: Vitamin D 25-OH Total 39.5 ng/mL (>30)
== END 2024-09-23 08:44 | disposition home or self-care (01) ==
LOC: HO.LAB 08:43
PROVIDERS: PCP Internal Medicine; Visit Provider Internal Medicine
DX: Z00.00 Encounter for general adult medical examination without abnormal findings (principal); E78.5 Hyperlipidemia, unspecified; E55.9 Vitamin D deficiency, unspecified; R30.0 Dysuria
CPT/HCPCS: 36415; 80053; 80061; 81001; 82306

== ENCOUNTER 2024-09-27 09:22 | Outpatient (AMB) | payer OTHER, SELFPAY ==
--- NOTE | 2024-09-27 09:43 | A.OFFVIS_ITS ---
Vital Signs 09/27/24 10:01 Height 5 ft 4 in Weight 130 lb 8.218 oz BMI 22.4 BP 134/69 Blood Pressure Location Lt brachial Position Sitting Pulse 72 Intake Visit Reasons: 6 mo f/u GERD, IBS Intake Note: Gaviota presents in follow up GERD and IBS. CC: Patient reports feeling better and denies any new GI symptoms or concerns. 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 Accompanied by: Self / Same As Patient Allergies alendronate sodium [Fosamax] Allergy (Intermediate, Verified 09/27/24 10:02) low back pain ciprofloxacin [From CIPRO] Allergy (Intermediate, Verified 09/27/24 10:02) SHORTNESS OF BREATH cyclobenzaprine Allergy (Intermediate, Verified 09/27/24 10:02) DIZZY FOGGY , dizziness metronidazole [From FLAGYL] Allergy (Intermediate, Verified 09/27/24 10:02) DISTENDED ABDOMEN, DIFFICULTY BREATHING tramadol [TRAMADOL] Allergy (Intermediate, Verified 09/27/24 10:02) VOMITING Hydrocodone-Acetaminophen Allergy (Intermediate, Uncoded 09/14/24 08:41) dizziness, insomnia HPI HPI 6 mo f/u GERD, IBS: Details: Assessment & Plan (1) Family history of colon cancer in father: Comment: 02/2024 scope= hyperplastic polyp repeat in 5 years due to family history; 2019 scope clear, repeat 5 years Code(s): Z80.0 - Family history of malignant neoplasm of digestive organs Category: Medical (2) Irritable bowel syndrome with diarrhea: Comment: Diarrhea dominant process although she will have occasional constipation Code(s): K58.0 - Irritable bowel syndrome with diarrhea Category: Medical (3) GERD (gastroesophageal reflux disease): Code(s): K21.9 - Gastro-esophageal reflux disease without esophagitis Category: Medical Qualifiers: Esophagitis presence: esophagitis presence not specified Qualified Code(s): K21.9 - Gastro-esophageal reflux disease without esophagitis Plan Bah[place]ian #Smooth Live She is agreeable to a 5 year repeat given her family history of colon cancer. The procedure was well tolerated. The results were explained and the patient is agreeable to the follow-up interval as stated. The bowel pattern has returned to normal. Education was provided to tell any 1st degree relatives about their findings to be sure that they are screened by age 45. Educated that they will be put on a recall list when it is time for their repeat scope but should they move out of state or away from the hospital they will need to remember along with their primary to repeat the procedure in a timely fashion to avoid any adverse complications. Imipramine and creon, and she is also using simethicone. BUT SHE IS NOT SURE IF SHE IS RECEIVING HER DEXILANT. I will have my staff look into this as if she is not taking it this would explain why she is having some increased problems with heartburn. She feels that when she gets the medicine she will be okay. Return office visit in 6 months per patient request Medications: New dicyclomine 20 mg PO QID 90 tabs 6RF Refilled bwdgka-axecicfv-jmdhkyz 24,000-76,000 -120,000 unit (Creon) 1 cap PO QID 120 caps 6RF K58.9 - Irritable bowel syndrome, unspecified sennosides (senna) 17.2 mg (2 x 8.6 mg) PO BEDTIME PRN 60 caps 6RF constipation 30 days simethicone 180 mg PO QID 120 caps 6RF R14.0 - Abdominal distension (gaseous) dexlansoprazole (Dexilant) 60 mg PO DAILY 90 caps 3RF K21.9 - Gastro-esophageal reflux disease without esophagitis imipramine HCl 20 mg (2 x 10 mg) PO BEDTIME 60 tabs 6RF 30 days K58.0 - Irritable bowel syndrome with diarrhea TODAY'S VISIT Bahamian #[id number] Lenore Imipramine, Dexilant, bentyl and creon, and she is also using simethicone. She is unsure if she had the bentyl, but she says she is feeling better. Return office visit in 6 months [facility] Medical History Heart abnormality Shoulder pain Constipation by delayed colonic transit Swelling of left thumb Mild recurrent major depression Abdominal pain Right shoulder pain Hyperparathyroidism Vitamin D deficiency Medicare annual wellness visit, initial Polyarthralgia Thoracic spine pain History of primary hyperparathyroidism Osteoporosis Migraines Vertigo Surgical History (Updated 09/27/24 @ 10:41 by ANDRÉS Oneil) Hx of colonoscopy (~2009) Hx of endoscopy (~2009) Hx of parathyroidectomy Hx of cholecystectomy Family History Father Colon cancer HTN (hypertension) Mother No problems noted. 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 Cognitive needs: No Hearing needs: No Vision needs: Yes Review of Systems Const Denies fatigue, Denies fever(s), Denies night sweats, Denies poor appetite and Denies weight loss Eyes Details: glasses Reports requires corrective lenses ENT Reports Normal hearing present, Denies dental pain, Denies dysphagia, Denies hearing loss, Denies mouth pain, Denies odynophagia, Denies throat swelling, Denies tongue swelling and Reports other (Dentition adequate) Card Reports no additional complaints Resp Reports no additional complaints GI Details: Denies abdominal pain, Denies melena, Reports bloating, Denies hematochezia, Denies constipation, Denies GI cramping, Denies dysphagia, Denies excessive flatus, Denies early satiety, Reports heartburn, Reports diarrhea, Denies nausea, Denies odynophagia, Denies vomiting and Denies hematemesis Skin/Breast Denies pruritus, Denies lesions, Denies rash and Denies jaundice Neuro Reports Normal hearing present and Denies Abnormal speech present Endo Denies fatigue Aller/Immun Denies throat swelling and Denies tongue swelling Physical Exam Vital Signs: Last Vital Signs Pulse 72 09/27/24 10:01 BP 134/69 09/27/24 10:01 BMI result Body Mass Index 22.4 Const General: cooperative, no acute distress, well developed and well groomed Nutritional Appearance: average body habitus and well nourished Orientation/consciousness: oriented to person, oriented to place and oriented to time Limitations: language barrier HEENT Head: Yes normocephalic and Yes atraumatic Eyes General: appearance normal, both eyes and all related structures Pupils: Equal, round and reactive pupils present Neck Neck: Yes normal visual inspection and Yes no lymphadenopathy Thyroid: Thyroid normal Resp Effort & Inspection: normal respiratory effort and able to speak in complete sentences Auscultation: clear to auscultation bilaterally Cardio Rate: regular rate Rhythm: regular rhythm Heart sounds: Normal, physiologic split S2 sound present Peripheral pulses: radial pulses present and posterior tibial pulses present GI Inspection: No distended and No Abdominal panniculus present Palpation (GI): Soft to palpation, nontender, no guarding, not rigid and No hepatosplenomegaly present Percussion: Yes normal to percussion Auscultation: normal bowel sounds Rectal Exam - Female: deferred Skin General skin exam: no rashes or lesions noted, turgor normal, skin not dry, no jaundice, No spider nevi and no striae Rashes: no rashes Nails: normal Neuro General: oriented to person, oriented to place and oriented to time Cranial nerves: Yes Equal, round and reactive pupils present and Yes Normal hearing present Speech: No Abnormal speech present Extrem General: Yes normal to inspection, No clubbing, No cyanosis and No edema Psych Appearance: grossly normal and well kempt Mental Status: mental status grossly normal Speech and movement: Normal speech and movement present Affect: normal affect Attitude: cooperative Thought process: Normal thought process present and not confabulating Thought content: Normal thought content present Insight: Limited insight present (Psych) Judgement: Limited judgement present (Psych) Assessment & Plan Assessment & Plan (1) Irritable bowel syndrome with diarrhea: Comment: Diarrhea dominant process although she will have occasional constipation Code(s): K58.0 - Irritable bowel syndrome with diarrhea Category: Medical (2) GERD (gastroesophageal reflux disease): Code(s): K21.9 - Gastro-esophageal reflux disease without esophagitis Category: Medical Qualifiers: Esophagitis presence: esophagitis presence not specified Qualified Code(s): K21.9 - Gastro-esophageal reflux disease without esophagitis (3) Family history of colon cancer in father: Comment: 02/2024 scope= hyperplastic polyp repeat in 5 years due to family history; 2019 scope clear, repeat 5 years Code(s): Z80.0 - Family history of malignant neoplasm of digestive organs Category: Medical Plan Bahamian #[id number] Lenore Imipramine, Dexilant, bentyl and creon, and she is also using simethicone. She is unsure if she had the bentyl, but she says she is feeling better. Return office visit in 6 month Medications: Refilled dexlansoprazole (Dexilant) 60 mg PO DAILY 90 caps 3RF K21.9 - Gastro-esophageal reflux disease without esophagitis kesxvl-kokkkmub-vziuvks 24,000-76,000 -120,000 unit (Creon) 1 cap PO QID 120 caps 6RF K58.9 - Irritable bowel syndrome, unspecified sennosides (senna) 17.2 mg (2 x 8.6 mg) PO BEDTIME PRN 60 caps 6RF constipation 30 days dicyclomine 20 mg PO QID 90 tabs 6RF imipramine HCl 20 mg (2 x 10 mg) PO BEDTIME 60 tabs 6RF 30 days K58.0 - Irritable bowel syndrome with diarrhea hydrocortisone 2.5% 1 appl NE BID 30 grams 6RF K64.9 - Unspecified hemorrhoids simethicone 180 mg PO QID 120 caps 6RF R14.0 - Abdominal distension (gaseous) Coding Level of Care Code Est Pt Level 3 (26001) Diagnoses Irritable bowel syndrome with diarrhea K58.0 Gastroesophageal reflux disease, unspecified whether esophagitis present K21.9 Esophagitis presence: esophagitis presence not specified Family history of colon cancer in father Z80.0
[2024-09-27 10:01] VITALS: BP 134/69; PULSE 72; BMI 22.4
--- OUTSIDE RECORDS SUMMARY | 2024-09-27 10:21 | XMS_ITS | Encounter Summary ---
Author Organization [employer] Address [address] [facility] [address] [place] [address] Care Team Providers Care Commodity Broker Name Role Phone Unavailable Primary Care Provider Unavailabl e Encounter Details Date Type Department Care Team (Latest Contact Info) Description 07/20/2020 Abstract [facility] CONVERSIONS Dental, Provider, DDS Social [...] as of this encounter Plan of Treatment Upcoming Encounters Date Type Department Care Team (Late st Contact Info) Description 03/30/2025 1:00 PM EDT Office Visit [facility] ADULT DENTAL [address] [place] [address] Lali Rufina [address] [place] [address] documented as of this encounter Visit Diagnoses Not on filedocumented in this encounter
--- OUTSIDE RECORDS SUMMARY | 2024-09-27 10:21 | XMS_ITS | Encounter Summary ---
Author Organization [employer] Address [address] [facility] [address] [place] [address] Care Team Providers Care River Tester Name Role Phone Unavailable Primary Care Provider Unavailabl e Encounter Details Date Type Department Care Team (Latest Contact Info) Description 12/02/2018 Abstract [facility] CONVERSIONS Dental, Provider, DDS Social History Tobacco [...] Description 03/30/2025 1:00 PM EDT Office Visit [facility] ADULT DENTAL [address] [place] [address] Lali, Rufina [address] [place] [address] documented as of this encounter Visit Diagnoses Not on filedocumented in this encounter
--- OUTSIDE RECORDS SUMMARY | 2024-09-27 10:21 | XMS_ITS | Clinical Summary ---
Author Organization [employer] Address [address] [facility] [address] [place] [address] Care Team Providers Care Director Of Casino Name Role Phone Unavailable Primary Care Provider [...] TWICE DAILY FOR HEMORRHOIDS 3 Active Creon 92206-40248 units capsule Take 1 capsule by mouth [...] Mass Index - - Plan of Treatment Upcoming Encounters Date Type Department Care Team (Late st Contact Info) Description 03/30/2025 1:00 PM EDT Office Visit [facility] ADULT DENTAL [address] [place] [address] Lali, Rufina [address] [place] [address] Health Maintenance Due Date Last Done Comments [...] Relevant to Health Maintenance Insurance DENTAL - [facility]
== END 2024-09-27 10:43 | disposition home or self-care (01) ==
LOC: HO.HGI 09:22
PROVIDERS: PCP Internal Medicine; Visit Provider Nurse Practitioner
DX: K58.0 Irritable bowel syndrome with diarrhea (principal); K21.9 Gastro-esophageal reflux disease without esophagitis; Z80.0 Family history of malignant neoplasm of digestive organs
CPT/HCPCS: 99213

== ENCOUNTER → 2024-09-27 09:22 | Outpatient (BNVA) | payer OTHER, SELFPAY | PROVIDERS: PCP Internal Medicine; Visit Provider Nurse Practitioner | DX: K58.0 Irritable bowel syndrome with diarrhea (principal); K21.9 Gastro-esophageal reflux disease without esophagitis; Z80.0 Family history of malignant neoplasm of digestive organs | CPT/HCPCS: 99212 ==

== ENCOUNTER 2025-03-02 09:12 | Outpatient (AMB) | payer OTHER, SELFPAY ==
[2025-03-02 09:43] VITALS: BP 110/60; PULSE 69; RESP 18; TEMP 36.2; O2SAT 96; BMI 23.2
--- NOTE | 2025-03-02 09:43 | A.OFFPC_ITS ---
Vital Signs 03/02/25 09:43 Height 5 ft 4 in Weight 135 lb 2 oz BMI 23.2 BP 110/60 Blood Pressure Location Lt brachial Position Sitting Respiration 18 Pulse 69 Pulse Source Pulse Oximeter Temp 97.1 F Temp Source Temporal Artery Scan Pulse Oximetry (%) 96 Oxygen Delivery Method Room Air Intake Visit Reasons: gerd, migraines - see comments Laminating Machine Offbearer Required: No Accompanied by: Self / Same As Patient Allergies alendronate sodium (Fosamax) Allergy (Intermediate, Verified 03/02/25 10:11) low back pain ciprofloxacin (From CIPRO) Allergy (Intermediate, Verified 03/02/25 10:11) SHORTNESS OF BREATH cyclobenzaprine Allergy (Intermediate, Verified 03/02/25 10:11) DIZZY FOGGY , dizziness metronidazole (From FLAGYL) Allergy (Intermediate, Verified 03/02/25 10:11) DISTENDED ABDOMEN, DIFFICULTY BREATHING tramadol (TRAMADOL) Allergy (Intermediate, Verified 03/02/25 10:11) VOMITING Hydrocodone-Acetaminophen Allergy (Intermediate, Uncoded 03/02/25 10:11) dizziness, insomnia Medication List - Last Reconciled 03/02/25 by Cee Stinson MD dexlansoprazole (Dexilant) 60 mg PO DAILY dicyclomine 20 mg PO QID gabapentin 400 mg PO TID 30 days hydrocortisone 2.5% 1 appl MD BID imipramine HCl 20 mg (2 x 10 mg) PO BEDTIME 30 days pdzjpa-uvhpkhsg-ojwakct 24,000-76,000 -120,000 unit (Creon) 1 cap PO QID peg 3350-electrolytes 236-22.74-6.74 -5.86 gram (Golytely) 240 mL PO Q10M 1 day simethicone 180 mg PO QID Tobacco use date assessed: 03/02/25 Fall risk assessment: No Falls in past year Last assessed Fall Risk: 03/02/25 Dental Screening Dental Screen Date: 03/02/25 Did you have a dental visit in the last 12 months?: No Did you have a dental problem in the last 6 months where you did not have access to dental care?: No Was dental information given to patient?: No HPI HPI Comments History of Present Illness Details The patient is a 69-year-old female presenting with a follow-up for chronic conditions including migraine, gastroesophageal reflux disease, chronic pancreatitis, and sciatica. The patient reports significant back pain attributed to sciatica, with symptoms exacerbated by cold weather and more pronounced at night. She is currently taking gabapentin to manage the pain. The patient has chronic pancreatitis managed by a certified technician specialist, with Creon as part of her treatment regimen. She also manages gastroesophageal reflux disease with dexylam and simeticone. The patient has a history of depression but does not currently see a mental health professional due to transportation issues. She was previously referred to mental health services but could not attend due to lack of transportation. In terms of preventative care, the patient underwent a colonoscopy last year, which revealed a hyperplastic polyp. Her recent laboratory results were normal, and no further tests are planned at this time. FORMERLY [facility], [facility]–1983 Medical History (Updated 03/02/25 @ 11:15 by Cee Stinson MD) Heart abnormality Shoulder pain Constipation by delayed colonic transit Swelling of left thumb Mild recurrent major depression Abdominal pain Right shoulder pain Hyperparathyroidism Vitamin D deficiency Medicare annual wellness visit, initial Polyarthralgia Thoracic spine pain History of primary hyperparathyroidism Osteoporosis Migraines Vertigo Surgical History Hx of colonoscopy (~2009) Hx of endoscopy (~2009) Hx of parathyroidectomy Hx of cholecystectomy Family History Father Colon cancer HTN (hypertension) Mother No problems noted. 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 Cognitive needs: No Hearing needs: No Vision needs: Yes Questionnaire Thrive Questionnaire Date Thrive assessed: 08/30/24 GREGORY-7 AMB Questionnaire GREGORY-7 Date GREGORY - 7 assessed: 08/30/24 Source: Developed by Drs. Abhijit Vega, Annamarie Rosa, Jr Bourne and colleagues, with an educational tia from [employer]. Review of Systems Const All systems reviewed & are unremarkable except as noted in HPI and below Card Denies chest pain at rest, Denies chest pain with activity, Denies edema, Denies irregular heart rhythm, Denies claudication, Denies dyspnea, Denies dyspnea on exertion, Denies orthopnea, Denies paroxysmal nocturnal dyspnea and Denies slow heart rate Resp Denies cough, Denies dyspnea and Denies dyspnea on exertion GI Denies abdominal pain, Denies change in bowel habits, Denies excessive flatus, Denies nausea and Denies vomiting Physical exam (Primary Care) Vital Signs: Last Vital Signs Temp 97.1 F 03/02/25 09:43 Pulse 69 03/02/25 09:43 Resp 18 03/02/25 09:43 BP 110/60 03/02/25 09:43 Pulse Ox 96 03/02/25 09:43 Oxygen Delivery Method Room Air 03/02/25 09:43 BMI result Body Mass Index 23.2 Tobacco/Smoking Status: Tobacco use Status Tobacco use date assessed 03/02/25 03/02/25 09:50 Patient Tobacco Use Status Former Tobacco user 03/02/25 09:50 Tobacco use type Cigarette 03/02/25 09:50 e-Cigarette/Vaping Use Never Used 03/02/25 09:50 Thrive Assessment: Date of Thrive Assessment Date Thrive assessed 08/30/24 03/02/25 09:50 Resp Effort & Inspection: normal respiratory effort Auscultation: clear to auscultation bilaterally Cardio Jugular venous distension: no JVD Rate: regular rate Rhythm: regular rhythm Heart sounds: S1 normal heart sound present and S2 normal heart sound present Back/Spine/Pelvis Thoracic/Lumbar Spine: straight leg raise positive left at 60 degrees Extrem General: Yes full ROM Coding Level of Care Code Est Pt Level 4 (67377) Complex EM visit Add On G2211 Diagnoses Gastroesophageal reflux disease, unspecified whether esophagitis present K21.9 Esophagitis presence: esophagitis presence not specified Left sided sciatica M54.32 Migraines G43.909 Chronic pancreatitis K86.1 Time Spent (min) 23 Assessment & Plan Assessment & Plan (1) GERD (gastroesophageal reflux disease): Code(s): K21.9 - Gastro-esophageal reflux disease without esophagitis Category: Medical Qualifiers: Esophagitis presence: esophagitis presence not specified Qualified Code(s): K21.9 - Gastro-esophageal reflux disease without esophagitis (2) Left sided sciatica: Code(s): M54.32 - Sciatica, left side Category: Medical (3) Migraines: Code(s): G43.909 - Migraine, unspecified, not intractable, without status migrainosus Category: Medical (4) Chronic pancreatitis: Code(s): K86.1 - Other chronic pancreatitis Category: Medical Plan Plan Patient was informed and verbally consented to the use of an ambient scribe for clinic note documentation during this visit. 1. Sciatica, unspecified side M54.30 The patient will be referred to physical therapy to address the sciatica, confirmed by a positive straight leg raise test on the left side. She is advised to continue using gabapentin for pain management. 2. Other chronic pancreatitis K86.1 HCC 34 The patient continues to manage chronic pancreatitis with Creon under the supervision of a certified technician specialist. 3. Gastro-esophageal reflux disease without esophagitis K21.9 The patient is advised to continue her current medications, dexylam and simeticone, for managing gastroesophageal reflux disease. 4. Depression, unspecified F32.A The patient acknowledges mild depression but is not currently seeing a mental health professional due to transportation issues. No immediate changes to her management plan were discussed. Orders: Orders PT Evaluation and Treatment Today M54.32 - Sciatica, left side
--- OUTSIDE RECORDS SUMMARY | 2025-03-02 10:41 | XMS_ITS | Encounter Summary ---
Author Organization [employer] Address [address] [facility] [address] [place] [address] Care Team Providers Care Operations Vocational Instructor Name Role Phone Unavailable Primary Care Provider Unavailabl e Encounter Details Date Type Department Care Team (Latest Contact Info) Description 12/02/2018 Abstract [facility] CONVERSION[facility] Dental, Provider, DDS Social History [...] Team (Late st Contact Info) Description 03/30/2025 12:45 PM EDT Office Visit [facility] [address] [place] [address] Lali Rufina [address] [place] [address] documented as of this encounter Visit Diagnoses Not on filedocumented in this encounter
--- OUTSIDE RECORDS SUMMARY | 2025-03-02 10:41 | XMS_ITS | Clinical Summary ---
Author Organization [employer] Address [address] [facility] [address] [place] [address] Care Team Providers Care Early Breastfeeding Care Specialist Name Role Phone Unavailable Primary Care Provider [...] TWICE DAILY FOR HEMORRHOIDS 3 Active Creon 43923-15489 units capsule Take 1 capsule by mouth [...] Description 03/30/2025 12:45 PM EDT Office Visit [facility] [address] [place] [address] Lali, Rufina [address] [place] [address] Health Maintenance Due Date Last Done Comments [...] Additional history exists COVID-19 Vaccine ( season) 2025 07/26/2021, 07/05/2021 Influenza Vaccine (#1) 2025 Tobacco Screening 04/25/2025 04/25/2024 Dental X-Ray: Full Mouth 10/28/2025 10/27/2022, 12/13 HIB Vaccines Aged Out No longer eligi ble based on patient's age to complete this topic HPV Vaccines Aged Out No longer eligi ble based on patient's age to complete this topic IPV Vaccines Aged Out No longer eligi ble based on patient's age to complete this topic Meningococcal B Vaccine Aged Out No l onger eligible based on patient's age to complete [...] Relevant to Health Maintenance Insurance DENTAL - [facility] SCO
--- OUTSIDE RECORDS SUMMARY | 2025-03-02 10:41 | XMS_ITS | Encounter Summary ---
Author Organization [employer] Address [address] [facility] [address] [place] [address] Care Team Providers Care Fish Roe Technician Name Role Phone Unavailable Primary Care Provider Unavailabl e Encounter Details Date Type Department Care Team (Latest Contact Info) Description 07/20/2020 Abstract [facility] CONVERSIONS Dental, Provider, DDS Social History Tobacco [...] Description 03/30/2025 12:45 PM EDT Office Visit [facility] ADULT DENTAL [address] [place] [address] Lali Rufina [address] [place] [address] documented as of this encounter Visit Diagnoses Not on filedocumented in this encounter
== END 2025-03-02 10:22 | disposition home or self-care (01) ==
LOC: HO.HMCH 09:13
PROVIDERS: PCP Internal Medicine; Visit Provider Internal Medicine
DX: K21.9 Gastro-esophageal reflux disease without esophagitis (principal); M54.32 Sciatica, left side; G43.909 Migraine, unspecified, not intractable, without status migrainosus; K86.1 Other chronic pancreatitis

== ENCOUNTER → 2025-03-02 09:12 | Outpatient (BNVA) | payer OTHER, SELFPAY | PROVIDERS: PCP Internal Medicine; Visit Provider Internal Medicine | DX: M54.32 Sciatica, left side (principal); K86.1 Other chronic pancreatitis; F32.9 Major depressive disorder, single episode, unspecified; K21.9 Gastro-esophageal reflux disease without esophagitis; G43.909 Migraine, unspecified, not intractable, without status migrainosus | CPT/HCPCS: 99212 ==

== ENCOUNTER 2025-03-29 09:12 | Outpatient (AMB) | payer OTHER, SELFPAY ==
--- NOTE | 2025-03-29 09:34 | MHC.OFFVIS ---
Vital Signs 03/29/25 09:43 Height 5 ft 4 in Weight 135 lb BMI 23.2 BP 144/67 H Blood Pressure Location Rt brachial Position Sitting Pulse 68 Intake Visit Reasons: CIC, GERD, Bloating Intake Note: Roula presents to in office follow up of CIC, GERD, bloating. CC: Patient reports doing well and denies having any new GI symptoms. Fugitive Detective Required: No Accompanied by: Self / Same As Patient Allergies alendronate sodium (Fosamax) Allergy (Intermediate, Verified 03/29/25 09:46) low back pain ciprofloxacin (From CIPRO) Allergy (Intermediate, Verified 03/29/25 09:46) SHORTNESS OF BREATH cyclobenzaprine Allergy (Intermediate, Verified 03/29/25 09:46) DIZZY FOGGY , dizziness metronidazole (From FLAGYL) Allergy (Intermediate, Verified 03/29/25 09:46) DISTENDED ABDOMEN, DIFFICULTY BREATHING tramadol (TRAMADOL) Allergy (Intermediate, Verified 03/29/25 09:46) VOMITING Hydrocodone-Acetaminophen Allergy (Intermediate, Uncoded 03/02/25 10:11) dizziness, insomnia HPI HPI CIC, GERD, Bloating: Details: Assessment & Plan (1) Irritable bowel syndrome with diarrhea: Comment: Diarrhea dominant process although she will have occasional constipation Code(s): K58.0 - Irritable bowel syndrome with diarrhea Category: Medical (2) GERD (gastroesophageal reflux disease): Code(s): K21.9 - Gastro-esophageal reflux disease without esophagitis Category: Medical Qualifiers: Esophagitis presence: esophagitis presence not specified Qualified Code(s): K21.9 - Gastro-esophageal reflux disease without esophagitis (3) Family history of colon cancer in father: Comment: 02/2024 scope= hyperplastic polyp repeat in 5 years due to family history; 2019 scope clear, repeat 5 years Code(s): Z80.0 - Family history of malignant neoplasm of digestive organs Category: Medical Plan Turkmen #[id number] Lenore Imipramine, Dexilant, bentyl and creon, and she is also using simethicone. She is unsure if she had the bentyl, but she says she is feeling better. Return office visit in 6 month Medications: Refilled dexlansoprazole (Dexilant) 60 mg PO DAILY 90 caps 3RF K21.9 - Gastro-esophageal reflux disease without esophagitis tkwxvr-ivzxhxpi-wijxyyo 24,000-76,000 -120,000 unit (Creon) 1 cap PO QID 120 caps 6RF K58.9 - Irritable bowel syndrome, unspecified sennosides (senna) 17.2 mg (2 x 8.6 mg) PO BEDTIME PRN 60 caps 6RF constipation 30 days dicyclomine 20 mg PO QID 90 tabs 6RF imipramine HCl 20 mg (2 x 10 mg) PO BEDTIME 60 tabs 6RF 30 days K58.0 - Irritable bowel syndrome with diarrhea hydrocortisone 2.5% 1 appl NV BID 30 grams 6RF K64.9 - Unspecified hemorrhoids simethicone 180 mg PO QID 120 caps 6RF R14.0 - Abdominal distension (gaseous) TODAYS VISIT Turkmen # PFSH Medical History (Updated 03/29/25 @ 10:03 by ANDRÉS Oneil) UTI (urinary tract infection) Heart abnormality Shoulder pain Constipation by delayed colonic transit Swelling of left thumb Mild recurrent major depression Abdominal pain Right shoulder pain Hyperparathyroidism Vitamin D deficiency Medicare annual wellness visit, initial Polyarthralgia Thoracic spine pain History of primary hyperparathyroidism Osteoporosis Migraines Vertigo Surgical History Hx of colonoscopy (~2009) Hx of endoscopy (~2009) Hx of parathyroidectomy Hx of cholecystectomy Family History Father Colon cancer HTN (hypertension) Mother No problems noted. 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 Cognitive needs: No Hearing needs: No Vision needs: Yes Review of Systems Const Denies fatigue, Denies fever(s), Denies night sweats, Denies poor appetite and Denies weight loss ENT Reports Normal hearing present, Denies dental pain, Denies dysphagia, Denies hearing loss, Denies mouth pain, Denies odynophagia, Denies throat swelling, Denies tongue swelling and Reports other (Dentition adequate) Card Reports no additional complaints Resp Reports no additional complaints GI Details: Denies abdominal pain, Denies melena, Reports bloating, Denies hematochezia, Denies constipation, Reports GI cramping, Denies dysphagia, Denies excessive flatus, Denies early satiety, Reports heartburn, Denies diarrhea, Denies nausea, Denies odynophagia, Denies vomiting and Denies hematemesis Skin/Breast Denies pruritus, Denies lesions, Denies rash and Denies jaundice Neuro Reports Normal hearing present and Denies Abnormal speech present Endo Denies fatigue Aller/Immun Denies throat swelling and Denies tongue swelling Physical Exam Vital Signs: Last Vital Signs Pulse 68 03/29/25 09:43 BP 144/67 H 03/29/25 09:43 BMI result Body Mass Index 23.2 Const General: cooperative, no acute distress, well developed and well groomed Nutritional Appearance: average body habitus and well nourished Orientation/consciousness: oriented to person, oriented to place and oriented to time Limitations: language barrier HEENT Head: Yes normocephalic and Yes atraumatic Eyes General: appearance normal, both eyes and all related structures Pupils: Equal, round and reactive pupils present Neck Neck: Yes normal visual inspection and Yes no lymphadenopathy Thyroid: Thyroid normal Resp Effort & Inspection: normal respiratory effort and able to speak in complete sentences Auscultation: clear to auscultation bilaterally Cardio Rate: regular rate Rhythm: regular rhythm Heart sounds: Normal, physiologic split S2 sound present Peripheral pulses: radial pulses present and posterior tibial pulses present GI Inspection: No distended and No Abdominal panniculus present Palpation (GI): Soft to palpation, nontender, no guarding, not rigid and No hepatosplenomegaly present Percussion: Yes normal to percussion Auscultation: normal bowel sounds Rectal Exam - Female: deferred Skin General skin exam: no rashes or lesions noted, turgor normal, skin not dry, no jaundice, No spider nevi and no striae Rashes: no rashes Nails: normal Neuro General: oriented to person, oriented to place and oriented to time Cranial nerves: Yes Equal, round and reactive pupils present and Yes Normal hearing present Speech: No Abnormal speech present Extrem General: Yes normal to inspection, No clubbing, No cyanosis and No edema Psych Appearance: grossly normal and well kempt Mental Status: mental status grossly normal Speech and movement: Normal speech and movement present Affect: normal affect Attitude: cooperative Thought process: Normal thought process present and not confabulating Thought content: Normal thought content present Insight: Fair insight present (Psych) Judgement: Fair judgement present (Psych) Assessment & Plan Assessment & Plan (1) GERD (gastroesophageal reflux disease): Code(s): K21.9 - Gastro-esophageal reflux disease without esophagitis Category: Medical Qualifiers: Esophagitis presence: esophagitis presence not specified Qualified Code(s): K21.9 - Gastro-esophageal reflux disease without esophagitis (2) Irritable bowel syndrome with diarrhea: Comment: Diarrhea dominant process although she will have occasional constipation Code(s): K58.0 - Irritable bowel syndrome with diarrhea Category: Medical Plan Turkmen # Indira live The current GI regimen consists of Dexilant, Creon, senna, dicyclomine, imipramine, and simethicone. Not using senna, instead modifying diet w/fruits etc. Explain her liver hemangioma. DX for creon NOT chronic pancreatitis, IBS is a valid dx for this and/or also EPI which can be an underlying form of IBS. PCP misinformed. ROV 6 mos. Medications: Refilled hydrocortisone 2.5% 1 appl NV BID 30 grams 6RF K64.9 - Unspecified hemorrhoids fffulf-svzuwila-psliyra (pork) 24,000-76,000 -120,000 unit (Creon) 1 cap PO QID 120 caps 6RF K58.9 - Irritable bowel syndrome, unspecified dexlansoprazole (Dexilant) 60 mg PO DAILY 90 caps 1RF K21.9 - Gastro-esophageal reflux disease without esophagitis dicyclomine 20 mg PO QID 90 tabs 6RF imipramine HCl 20 mg (2 x 10 mg) PO BEDTIME 60 tabs 6RF 30 days K58.0 - Irritable bowel syndrome with diarrhea simethicone 180 mg PO QID 120 caps 6RF R14.0 - Abdominal distension (gaseous) Discontinued peg 3350-electrolytes 236-22.74-6.74 -5.86 gram (Golytely) until fecal effluent is clear; do not exceed a total volume of 2,000 mL Discontinued Reason: Doctor's Order 240 mL PO Q10M 1 day 4,000 mL 0RF Z12.11 - Encounter for screening for malignant neoplasm of colon Coding Level of Care Code Est Pt Level 3 (73755) Diagnoses Gastroesophageal reflux disease, unspecified whether esophagitis present K21.9 Esophagitis presence: esophagitis presence not specified Irritable bowel syndrome with diarrhea K58.0
[2025-03-29 09:43] VITALS: BP 144/67; PULSE 68; BMI 23.2
--- OUTSIDE RECORDS SUMMARY | 2025-03-29 10:13 | XMS_ITS | Clinical Summary ---
Author Organization [employer] Address [address] [facility] [address] [place] [address] Care Team Providers Care Assembly Loader Name Role Phone Unavailable Primary Care Provider [...] TWICE DAILY FOR HEMORRHOIDS 3 Active Creon 18783-52925 units capsule Take 1 capsule by mouth [...] Description 03/30/2025 12:45 PM EDT Office Visit [facility] ADULT D[facility] [address] [place] [address] Lali, Rufina [address] [place] [address] Health Maintenance Due Date Last Done Comments [...] Relevant to Health Maintenance Insurance DENTAL - [facility] SCO
--- OUTSIDE RECORDS SUMMARY | 2025-03-29 10:13 | XMS_ITS | Encounter Summary ---
Author Organization [employer] Address [address] [facility] [address] [place] [address] Care Team Providers Care Frankfurter Inspector Name Role Phone Unavailable Primary Care Provider Unavailabl e Encounter Details Date Type Department Care Team (Latest Contact Info) Description 07/20/2020 Abstract [facility] CONVERSIONS Dental, Provider, DDS Social History [...] Description 03/30/2025 12:45 PM EDT Office Visit [facility] ADULT DENTAL [address] [place] [address] Lali Rufina [address] [place] [address] documented as of this encounter Visit Diagnoses Not on filedocumented in this encounter
--- OUTSIDE RECORDS SUMMARY | 2025-03-29 10:13 | XMS_ITS | Encounter Summary ---
Author Organization [employer] Address [address] [facility] [address] [place] [address] Care Team Providers Care Book Sewer Name Role Phone Unavailable Primary Care Provider Unavailabl e Encounter Details Date Type Department Care Team (Latest Contact Info) Description 12/02/2018 Abstract [facility] CONVERSIONS Dental, Provider, DDS Social History [...] Description 03/30/2025 12:45 PM EDT Office Visit [facility] ADULT DENT[facility] [address] [place] [address] Lali, Rufina [address] [place] [address] documented as of this encounter Visit Diagnoses Not on filedocumented in this encounter
== END 2025-03-29 10:05 | disposition home or self-care (01) ==
LOC: HO.HGI 09:13
PROVIDERS: PCP Internal Medicine; Visit Provider Nurse Practitioner
DX: K21.9 Gastro-esophageal reflux disease without esophagitis (principal); K58.0 Irritable bowel syndrome with diarrhea
CPT/HCPCS: 99213

== ENCOUNTER → 2025-03-29 09:12 | Outpatient (BNVA) | payer OTHER, SELFPAY | PROVIDERS: PCP Internal Medicine; Visit Provider Nurse Practitioner | DX: K58.0 Irritable bowel syndrome with diarrhea (principal); K21.9 Gastro-esophageal reflux disease without esophagitis; Z80.0 Family history of malignant neoplasm of digestive organs | CPT/HCPCS: 99212 ==

== ENCOUNTER 2025-04-18 09:46 | Outpatient (AMB) | payer OTHER, SELFPAY ==
--- OUTSIDE RECORDS SUMMARY | 2025-04-14 10:00 | XMS_ITS | Encounter Summary ---
Author Organization [employer] Address [address] [facility] [address] [place] [address] Care Team Providers Care Aged Or Disabled Carer Name Role Phone Unavailable Primary Care Provider Unavailabl e Reason for Visit * Reason Comments Scaling And Root Planing SRP UL, LL quad s Encounter Details Date Type Department Care Team (Latest Contact Info) Description 04/14/2025 11:00 AM EDT Office Visit [facility] D[facility]AL [address] [place] [address] Lali Rufina [address] [place] [address] Dental calculus (Primary Dx); Advanced periodontitis; Stage 3 grade B generalized periodontitis per AAP/EFP 2017 classification Social History Tobacco Use Types Packs/Day Years Used Date Smoking Tobacco: Never Passive Smoke Exposure: Never Smokeless Tobacco: Never Alcohol Use Standard Drinks/Week Comments Defer 0 (1 standard drink = 0.6 oz pur e alcohol) Comments Unknown Sex and Gender Information Value Date Recorded Sex Assigned at Female 04/14/2022 10:25 AM EDT Legal Sex Female 10:25 AM EDT Gender Identity Female 04/14/2022 10:25 AM EDT Sexual Orientation Straight 04/14/2022 10 :25 AM EDT documented as of this encounter Last Filed Vital Signs Vital Sign Reading Time Taken Comments Blood Pressure 130/74 04/14/2025 10:39 AM EDT Pulse - - Temperature - - Respiratory Rate - - Oxygen Saturation - - Inhaled Oxygen Concentration - - Weight - - Height - - Body Mass Index - - documented in this encounter Progress Notes * Rufina Escalera - 04/14/2025 11:00 AM EDT Patient ID: Gaviota Rubio is a 69 y.o. female. Time Out: Timeout Date: 04/14/25, Timeout Time: 1041 (SRP UL, LL quads) Location: [facility] Tooth: UL, LL quads Procedure: Scaling and Root Planing Verified the above with patient, marketing assistant, and provider. Confirmed via patient's chart, intraorally and by radiographs. Supervisor Advertising Dispatch Clerks: not applicable Medical Hx: Vitals: Blood pressure 130/74. Medications, Med Hx reviewed with patient and updated in chart. Treatment Provided Dental procedures in this visit D4342 - PERIODONTAL SCALING AND ROOT PLANING - 1 TO 3 TEETH PER QUADRANT UL (Completed) Service provider: Rufina Escalera Billing provider: Charlie Darby DDS D4342 - PERIODONTAL SCALING AND ROOT PLANING - 1 TO 3 TEETH PER QUADRANT LL (Completed) Service provider: Rufina Escalera Billing provider: Charlie Darby DDS Topical: 20% Benzocaine only Per Pt's request. Pt tolerated procedure with topical anesthesia. Oral Cancer Screening: No lesions Head/Neck Exam: No Lesions Instruments Used: Ultrasonic Scalers, Hand Scalers, and Prophy angle, polished UL, LL quads to remove loose plaque. Calculus: Heavy and Subgingival Plaque: Moderate Stain: Discolored exposed roots Bleeding: Light Gingiva: recession magenta. OH: Fair #16 is rotated and mesioverted with 10 mm pocket on mesial, tried my best to remove as much calculus as possible Oral hygiene instructions provided to patient including brushing technique and flossing. Recommendations: [place] two times daily, modified marion technique, Floss daily, Electric toothbrush, Soft bristle toothbrush, [place] Tongue, Anti-sensitivity toothpaste Recall Frequency: SRP UR, LR quads. NV: CROW Hygienist: Rufina Escalera RDH documented in this encounter Plan of Treatment Upcoming Encounters Date Type Department Care Team (Late st Contact Info) Description 05/15/2025 11:00 AM EST Office Visit [facility] AD[facility] [address] [place] [address] Rufina Escalera [address] [place] [address] 10/04/2025 10:15 AM EDT Office Visit [facility] [address] [place] [address] Rufina Escalera [address] [place] [id number] documented as of this encounter Procedures Procedure Name Priority Date/Time Associated Diagnosis Comments UL PERIODONTAL SCALING AND ROOT PLANING - 1 TO 3 TEETH PER QUADRANT Routine 04/14/2025 11:00 AM EDT Dental calculus Advanced periodontitis Stage 3 grade B generalized periodontitis per AAP/EFP 2017 classification LL PERIODONTAL SCALING AND ROOT PLANING - 1 TO 3 TEETH PER QUADRANT Routine 04/14/2025 11:00 AM EDT Dental calculus Advanced periodontitis Stage 3 grade B generalized periodontitis per AAP/EFP 2017 classification documented in this encounter Visit Diagnoses Diagnosis Dental calculus- Primary Accretions on teeth Advanced periodontitis Stage 3 grade B generalized periodontitis per AAP/EFP 2017 classification documented in this encounter
--- NOTE | 2025-04-18 10:15 | A.OFFVIS_ITS ---
Intake Visit Reasons: 6m Dimension Specification Inspector Services: Dimension Specification Inspector Offered & Declined Allergies alendronate sodium (Fosamax) Allergy (Intermediate, Verified 04/18/25 10:19) low back pain ciprofloxacin (From CIPRO) Allergy (Intermediate, Verified 04/18/25 10:19) SHORTNESS OF BREATH cyclobenzaprine Allergy (Intermediate, Verified 04/18/25 10:19) DIZZY FOGGY , dizziness metronidazole (From FLAGYL) Allergy (Intermediate, Verified 04/18/25 10:19) DISTENDED ABDOMEN, DIFFICULTY BREATHING tramadol (TRAMADOL) Allergy (Intermediate, Verified 04/18/25 10:19) VOMITING Hydrocodone-Acetaminophen Allergy (Intermediate, Uncoded 04/18/25 10:19) dizziness, insomnia Medication List - Last Reconciled 04/18/25 by Wendy Betancourt CNP amitriptyline 50 mg PO BEDTIME calcium carbonate-vitamin D3 600 mg-10 mcg (400 unit) caps PO dexlansoprazole (Dexilant) 60 mg PO DAILY dicyclomine 20 mg PO QID gabapentin 400 mg PO TID 30 days hydrocortisone 2.5% 1 appl DC BID imipramine HCl 20 mg (2 x 10 mg) PO BEDTIME 30 days tlzpxi-qdoqptel-zxlzamu (pork) 24,000-76,000 -120,000 unit (Creon) 1 cap PO QID mecobalamin (vitamin B12) 1,000 mcg PO DAILY multivitamin 1 tab PO DAILY simethicone 180 mg PO QID topiramate 25 mg PO BID HPI Comments Details: She was doing okay. She was taking amitriptyline at bedtime and topiramate 25mg twice a day. Headaches were generally controlled with medications, happening about 2x/month. She had some more headaches last week. Ongoing generalized body pains from FM with pains to neck, shoulders, back, and legs worse with cold and humid weather. She was waiting to start PT for low back pain. No significant dizziness. No falls. No further syncopal episodes.?Sleep was so-so. Had episodes of blurred/foggy vision which are better. EEG mildly abnormal with paroxysmal features. She has a long history of dizziness and headaches for more than 11 years. She has daily episodes of dizziness which are brief, episodic, non-positional, characterized by a sensation of feeling drunk and sometimes blacking out. CAT scans and MRIs in the past were normal. The CAT scan from September of [address] Duffy found to be normal except for a 1 cm posterior fossa arachnoid cyst. Stopped Anaprox because she felt it made her dizzy. She has difficulty getting to sleep describes nervousness, depression, stress muscle and back pains, memory problems. [facility] Medical History (Updated 04/18/25 @ 10:18 by Wendy Betancourt CNP) Syncope UTI (urinary tract infection) Heart abnormality Shoulder pain Constipation by delayed colonic transit Swelling of left thumb Mild recurrent major depression Abdominal pain Right shoulder pain Hyperparathyroidism Vitamin D deficiency Medicare annual wellness visit, initial Polyarthralgia Thoracic spine pain History of primary hyperparathyroidism Osteoporosis Migraines Vertigo Surgical History Hx of colonoscopy (~2009) Hx of endoscopy (~2009) Hx of parathyroidectomy Hx of cholecystectomy Family History Father Colon cancer HTN (hypertension) Mother No problems noted. 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 Cognitive needs: No Hearing needs: No Vision needs: Yes Review of Systems Const Denies chills, Denies daytime sleepiness, Reports difficulty sleeping, Denies fatigue, Denies fever(s), Denies frequent falls, Reports headache(s), Denies increased appetite, Denies poor appetite, Denies snoring, Denies weakness, Denies weight gain and Denies weight loss Eyes Denies loss of vision ENT Denies vertigo, Reports dizziness, Reports headache(s) and Reports neck pain Card Denies chest pain at rest, Denies chest pain with activity, Denies syncope, Denies leg edema, Denies palpitations, Denies dyspnea and Denies dyspnea on exertion Resp Denies cough, Denies dyspnea, Denies dyspnea on exertion and Denies snoring GI Denies abdominal pain, Denies constipation, Denies heartburn, Denies diarrhea and Denies nausea Denies urinary frequency, Denies urinary incontinence and Denies urinary urgency Musc Denies abnormal gait, Reports back pain, Reports myalgias, Reports arthralgias, Reports neck pain, Reports numbness and Reports tingling Neuro Denies abnormal gait, Denies vertigo, Reports dizziness, Denies syncope, Denies frequent falls, Reports headache(s), Denies lack of coordination, Denies loss of vision, Denies memory loss, Reports numbness, Denies Other visual disturbances, Denies restless legs, Denies seizure-like activity, Reports tingling, Denies p aresthesias, Denies tremor(s) and Denies weakness Psych Reports anxiety, Reports depression, Denies auditory hallucinations, Denies memory loss and Denies visual hallucinations Endo Denies fatigue and Denies palpitations Physical Exam Const Other: General Appearance:? normal, in no acute distress. Heart:? S1, S2 normal, no murmurs. Lungs:? clear anteriorly and posteriorly. Musculoskeletal:? normal. Extremities:? no edema. Psych:? alert, oriented, cognitive function intact, cooperative with exam. Neuro Other: Abnormal Neurological Findings:?Brisk DTRs and equivocal extensor plantar responses Mental Status: alert and oriented X 3. Normal attention, orientation, memory, and affect. Cranial Nerves: Pupils are equal, round, and reactive to light. External ocular muscles are intact. Visual silva are full, no ptosis. Face is symmetrical, no facial weakness or droop. Facial sensations are normal. Tongue protrudes in midline. Palate elevates symmetrically. Shoulder shrugging is normal Motor Examination: Normal muscle tone, bulk and strength. No atrophy or fasciculations. No drift of the extended upper extremities. DTR 3+. Plantars are equivocal. Sensory Exam: Normal light touch, temperature, pinprick, vibration, and joint- position sensations. Rhomberg sign is absent. Coordination: No ataxia. No titubation. Gait Exam: Within normal limits. Cerebellar Signs: Acrxip-lo-cdyh is okay. Extrapyramidal System: No tremor, rigidity with normal facial expressions. No bradykinesia. No bradyphrenia. Normal arm swing and posture. No propulsion or retropulsion. Speech: Normal. Results Reviewed Results Reviewed: 11/20/20 CT brain negative. Normal bilateral auditory evoked potentials. Impression this is a mildly abnormal EEG due to by frontal sharp surging and paroxysmal activity suggestive of a paroxysmal disorder. If a seizure disorder is strongly suspected, a 24-hour ambulatory EEG is recommended MRI of cervical and dorsal spine shows multi level disc degen and osteophytes without significant cord compression or foraminal narrowing.. Normal bilateral auditory evoked potentials. Carotid doppler normal. CT 02/26/16 shows no change in tiny arachnoid cyst. Assessment & Plan Assessment & Plan (1) Tension headache: Code(s): G44.209 - Tension-type headache, unspecified, not intractable Category: Medical Plan: She reported taking topiramate 25mg 1 tablet twice a day, although previous prescription sent was for topiramate 25mg 2 tablets twice a day. Headaches were controlled with current medications and current dosing was continued. If headaches worsen in the future, topiramate dose can be increased back to 50mg twice a day. Continue topiramate 25mg 1 tablets twice a day. Continue amitriptyline 50mg 1 tablet at bedtime. (2) Fibromyalgia: Code(s): M79.7 - Fibromyalgia Category: Medical Plan: Continue gabapentin 400mg 1 capsule three times a day. (3) Dizziness: Code(s): R42 - Dizziness and giddiness Category: Medical Plan: No significant dizziness. Plan . Medications: New amitriptyline 50 mg PO BEDTIME 90 tabs 1RF 90 days topiramate 25 mg PO BID 180 tabs 1RF 90 days Coding Level of Care Code Est Pt Level 4 (42576) Diagnoses Tension headache G44.209 Fibromyalgia M79.7 Dizziness R42
--- OUTSIDE RECORDS SUMMARY | 2025-04-18 11:04 | XMS_ITS | Clinical Summary ---
Author Organization [employer] Address [address] [facility] [address] [place] [address] Care Team Providers Care Oleomargarine Maker Name Role Phone Unavailable Primary Care Provider [...] TWICE DAILY FOR HEMORRHOIDS 3 Active Creon 02039-80780 units capsule Take 1 capsule by mouth 4 times daily. 3 Active Simethicone Ultra Strength 180 MG capsule Take 180 mg by mouth 4 times daily. 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 Dental calculus 10/27/2022 Dental caries into pulp 10/27/2022 Encounters Date Type Department Care Team Description 04/14/2025 11:00 AM EDT Office Visit [facility] ADULT DENTAL [address] [place] [address] Rufina Escalera Dental calculus (Primary Dx); Advanced periodontitis; Stage 3 grade B generalized periodontitis per AAP/EFP 2017 classification 03/30/2025 12:45 PM EDT Office Visit [facility] ADULT DENTAL [address] [place] [address] Rufina Escalera Missing teeth, acquired (Primary Dx); Dental calculus; Secondary active dental caries extending into pulp; Advanced periodontitis from Last 3 Months Social History Tobacco [...] Pressure 130/74 04/14/2025 10:39 AM EDT Pulse 78 10/27/2022 10:09 AM EDT Temperature - - Respiratory Rate - - Oxygen Saturation - - Inhaled Oxygen Concentration - - Weight - - Height - - Body Mass Index - - Plan of Treatment Upcoming Encounters Date Type Department Care Team (Late st Contact Info) Description 05/15/2025 11:00 AM EST Office Visit [facility] ADULT DENTAL [address] [place] [address] Rufina Escalera [address] [place] [address] 10/04/2025 10:15 AM EDT Office Visit [facility] ADULT DENTAL [address] [place] [address] Rufina Escalera [address] [place] [address] Health Maintenance Due Date Last Done Comments [...] - Risk 60-74 years 1-dose series) 2015 COVID-19 Vaccine (3 - season) 2025 07/26/2021, 07/05/2021 Influenza Vaccine (#1) 2025 Dental Oral Exam 09/29/2025 03/30/2025, , 07/04/2020, Additional history exists Dental Prophylaxis 09/29/2025 03/30/2025, 0 10/27/2022, 07/20/2020, Additional history exists Dental X-Ray: Full Mouth 10/28/2025 10/27/2022, 12/13 Dental X-Ray: Bitewings 03/31/2026 03/30/20, 10/27/2022, 12/02/2018, Additional history exists Tobacco Screening 04/14/2026 04/14/2025 HIB Vaccines Aged Out No longer eligi [...] B generalized periodontitis per AAP/EFP 2017 classification PERIODIC ORAL EVALUATION - ESTABLISHED PATIENT Routine 03/30/2025 12:45 PM EDT INTRAORAL - PERIAPICAL EACH ADDITIONAL RADIOGRAPHIC IMAGE Routine 03/30/2025 12:45 PM EDT Missing teeth, acquired PROPHYLAXIS - ADULT Routine 03/30/2025 1 2:45 PM EDT Dental calculus INTRAORAL - PERIAPICAL EACH ADDITIONAL RADIOGRAPHIC IMAGE Routine 03/30/2025 12:45 PM EDT Missing teeth, acquired Dental calculus INTRAORAL - PERIAPICAL FIRST RADIOGRAPHIC IMAGE Routine 03/30/2025 12:45 PM EDT Missing teeth, acquired Dental calculus BITEWINGS - 4 RADIOGRAPHIC IMAGES Routine 03/30/2025 12:45 PM EDT Missing teeth, acquired Dental calculus INTRAORAL - COMPLETE SERIES OF RADIOGRAPHIC IMAGES Routine 10/27/2022 10:00 AM EDT Tipped teeth Dental calculus Dental caries Localized gingival recession from Last 3 Months or Most Recently Relevant to Health Maintenance Insurance [facility]
--- OUTSIDE RECORDS SUMMARY | 2025-04-18 11:04 | XMS_ITS | Encounter Summary ---
Author Organization [employer] Address [address] [facility] [address] [place] [address] Care Team Providers Care Septic Tank Setter Name Role Phone Unavailable Primary Care Provider Unavailabl e Encounter Details Date Type Department Care Team (Latest Contact Info) Description 12/02/2018 Abstract [facility] CONVERSIONS Dental, Provider, DDS Social History Tobacco [...] Office Visit [facility] ADULT DENTAL [address] [place] [address] Jesus Escaleraaris [address] [place] [address] 10/04/2025 10:15 AM EDT Office Visit [facility] DENT[facility] [address] [place] [address] Jesus Escaleraaris [address] [place] [address] documented as of this encounter Visit Diagnoses Not on filedocumented in this encounter
--- OUTSIDE RECORDS SUMMARY | 2025-04-18 11:04 | XMS_ITS | Encounter Summary ---
Author Organization [employer] Address [address] [facility] [address] [place] [address] Care Team Providers Care Director Of Partnerships Name Role Phone Unavailable Primary Care Provider Unavailabl e Encounter Details Date Type Department Care Team (Latest Contact Info) Description 07/20/2020 Abstract [facility] CONVERSIONS Dental, Provider, DDS Social History [...] Description 05/15/2025 11:00 AM EST Office Visit [facility] ADULT DENTAL [address] [place] [address] Jesus Escaleraaris [address] [place] [address] 10/04/2025 10:15 AM EDT Office Visit [facility] ADULT DENTAL [address] [place] [address] Jesus Escaleraaris [address] [place] [address] documented as of this encounter Visit Diagnoses Not on filedocumented in this encounter
== END 2025-04-18 10:52 | disposition home or self-care (01) ==
LOC: HO.HSM 09:46
PROVIDERS: PCP Internal Medicine; Referring Provider Internal Medicine; Visit Provider Registered Nurse
DX: G44.209 Tension-type headache, unspecified, not intractable (principal); M79.7 Fibromyalgia; R42 Dizziness and giddiness
CPT/HCPCS: 99214

== ENCOUNTER → 2025-04-18 09:46 | Outpatient (BNVA) | payer OTHER, SELFPAY | PROVIDERS: PCP Internal Medicine; Referring Provider Internal Medicine; Visit Provider Registered Nurse | DX: G44.209 Tension-type headache, unspecified, not intractable (principal); M79.7 Fibromyalgia; R42 Dizziness and giddiness | CPT/HCPCS: 99212 ==